=== PATIENT | male | born 1970 | race Caucasian/White ===

== ENCOUNTER 2017-01-07 17:14 | Inpatient (IN) | payer BC ==
[~2017-01-07] VITALS: Ht 167.6 cm; Wt 74.8 kg
[2017-01-07] MEDS ORDERED: LISI2.5T3 PO (17:25)
[2017-01-07] MEDS ORDERED: VITATAB73 PO (17:25)
[2017-01-07] MEDS ORDERED: CARV6.25 PO (17:25)
[2017-01-07] MEDS ORDERED: OMEP40CA2 PO (17:25)
[2017-01-07 19:48] LABS: BASO % 0.9 % (0.0-1.0); EOS # 0.1 K/mm3 (0.0-0.50); EOS % 2.6 % (0.0-3.0); LARGE UNSTAINED CELL # 0.1 K/mm3 (0.0-0.4); LARGE UNSTAINED CELL % 1.8 % (0.0-4.0); LYMPH # 1.4 K/mm3 (1.5-4.5); LYMPH % 32.5 % (24.0-44.0); MEAN CORPUSCULAR HEMOGLOBIN 33.1 pg (27.0-33.0); MEAN CORPUSCULAR HGB CONC 32.8 g/dl (32.0-36.5); MEAN CORPUSCULAR VOLUME 101.1 fl (80.0-96.0); MONO # 0.3 K/mm3 (0.0-0.8); MONO % 5.8 % (0.0-5.0); NEUTROPHILS # 2.5 K/mm3 (1.8-7.7); NEUTROPHILS % 56.4 % (36.0-66.0); PLATELET COUNT, AUTOMATED 273 k/mm3 (150-450); RED CELL DISTRIBUTION WIDTH 13.2 % (11.5-14.5); WHITE BLOOD COUNT 4.4 K/mm3 (4.0-10.0)
[2017-01-07] MEDS ORDERED: NS 1,000 ML IV ONE (20:00)
[2017-01-07 20:16] LABS: ANION GAP 7 MEQ/L (8-16); BLOOD UREA NITROGEN 65 MG/DL (7-18); CALCIUM LEVEL 8.1 MG/DL (8.5-10.1); CARBON DIOXIDE LEVEL 21 MEQ/L (21-32); CHLORIDE LEVEL 114 MEQ/L (98-107); GLOMERULAR FILTRATION RATE 8.1 (>60); GLUCOSE, FASTING 87 MG/DL (70-105); SODIUM LEVEL 142 MEQ/L (136-145)
[2017-01-07 20:26] LABS: POTASSIUM SERUM 5.6 MEQ/L (3.5-5.1)
[2017-01-07 21:49] LABS: ALBUMIN 3.1 GM/DL (3.2-5.2); ALBUMIN/GLOBULIN RATIO 0.91 (1.00-1.93); ALKALINE PHOSPHATASE 63 U/L (45-117); ALT/SGPT 21 U/L (12-78); AST/SGOT 9 U/L (15-37); BILIRUBIN,DIRECT < 0.1 MG/DL (0.0-0.2); BILIRUBIN,TOTAL 0.2 MG/DL (0.2-1.0); COMPLEMENT C3 99.5 MG/DL (90-180); TOTAL PROTEIN 6.5 GM/DL (6.4-8.2)
[2017-01-07 22:13] LABS: INR 1.04
--- NOTE | 2017-01-07 22:40 | REPUSA ---
CT of the abdomen and pelvis without contrast Clinical statement: Pain. Technique: Multiple axial CT images were obtained from the base of the lungs to the floor of the pelv is utilizing 5 mm axial slices without administration of contrast. Coronal and sagittal reconstructio ns were also obtained. No comparison is available. Findings: Chest: The visualized lung bases are clear. Abdomen: The kidneys are normal in size bilaterally. There is no evidence of hydronephrosis or nephro lithiasis. The liver, spleen, pancreas, gallbladder and adrenal glands are unremarkable. The aorta de monstrates normal caliber and contour. There is no abdominal lymphadenopathy or ascites. Pelvis: There is a small focus of bowel wall thickening and pericolonic inflammation in the midporti on of the sigmoid colon, consistent with focal acute sigmoid diverticulitis. There is no evidence of abscess or perforation. The remainder of the bowel is unremarkable, with no obstructive or inflammato ry changes. The urinary bladder is within normal limits. There is no pelvic lymphadenopathy or ascite s. The other pelvic structures appear unremarkable. Bones: There are no suspicious osseous abnormalities seen. Impression: 1. Small focus of sigmoid diverticulitis in the midportion of the sigmoid colon. No evidence of absc ess, perforation, or bowel obstruction. 2. No evidence of hydronephrosis or nephrolithiasis.
[2017-01-08] VITALS (13 sets, daily range): BP systolic 122–140; BP diastolic 70–94
[2017-01-08] MEDS: HEPARIN SOD (PORCINE) 5000 UNITS/ML VIAL SC SCH ×3 (06:43→21:08)
[2017-01-08] MEDS: PANTOPRAZOLE 40MG TAB (PROTONIX) PO SCH (09:30)
--- NOTE | 2017-01-08 12:02 | HPE ---
DATE OF ADMISSION: 01/07/2017 PRIMARY CARE PROVIDER: Dr. Amato in [place]. CHIEF COMPLAINT: Patient sent by primary care provider for abnormal labs. PAST MEDICAL HISTORY: 1. Heart murmur which was repaired at the age of 40 years, which he believes was ventricular septal defect (VSD). 2. Migraines. HISTORY OF PRESENT ILLNESS: This is a 46-year-old man who last saw a physician in 2013, when he was fine, did not have any abnormalities. He then had a blood work test in February 2016 for insurance purposes and his insurance was declined and he was not given any reason. Over the past 6 months, patient has been feeling progressively sick, more fatigued, difficulty in sleeping, poor appetite, tendency to fall asleep and dozing off during the day, but when he is trying to sleep he cannot sleep. He went to follow with his primary care provider last week. Blood work was done and he was found to have acute renal failure. Patient was told to come to the emergency room, however patient refused at that time so he was referred to Dr. Barajas for evaluation but Dr. Barajas wanted the patient to come to the emergency room for a full evaluation so the patient came here for abnormal labs. Patient says last week after he found out about the kidney failure he went back and checked his lab work from February 2016, which showed that he had a creatinine of 3, however he was not told anything about that. At present, he denies any chest pain. Does have intermittent wheeziness and gets exertional dyspnea. Denies any fever or chills. Denies any abdominal pain, nausea, vomiting, or diarrhea. Patient's last antibiotic was more than a year ago for a dental procedure. Denies use of any IV contrast recently. Patient does say that he would take some nonsteroidal anti-inflammatory drugs (NSAIDs) off and on for headaches and pains. At present, patient is being admitted to the hospitalist service for acute kidney injury on chronic kidney disease. PAST SURGICAL HISTORY: 1. Cardiac catheterization times two. 2. VSD repair at the age of 4 years. ALLERGIES: No known allergies. HOME MEDICATIONS: - Coreg 6.25 mg by mouth twice a day - lisinopril 2.5 mg by mouth daily - omeprazole 40 mg twice a day - vitamin B complex one tablet by mouth daily (These were all started about 5 days ago when he went to see his primary care last week.) SOCIAL HISTORY: Patient does not smoke, does not use recreational drugs, does not abuse alcohol. FAMILY HISTORY: Nothing significant. REVIEW OF SYSTEMS: All ten point review of systems were negative except as mentioned in history of present illness (HPI). PHYSICAL EXAMINATION: VITAL SIGNS: Temperature 97.6, pulse 79, respiratory rate 16, blood pressure 121/85, pulse oximetry 100% in room air. GENERAL: Patient awake, alert, oriented times three, lying down in bed, in no acute distress. HEENT: Normocephalic, atraumatic. Moist mucous membranes. Anicteric eyes. CHEST: Clear to auscultation. CARDIOVASCULAR: S1, S2, regular. No rub, murmur, or gallop. ABDOMEN: Soft, nontender. Bowel sounds present. EXTREMITIES: No edema. NEUROLOGIC: There is no flap. LABORATORY DATA: WBC 4.4, hemoglobin 11.2, platelets 273. Sodium 142, potassium 5.6, chloride 114, bicarbonate 21, BUN 65, creatinine 7.7, calcium 8.1, glucose 87. Liver function tests normal. C3 is 99.5, C4 is 26. ASSESSMENT: This is a 46-year-old male admitted for acute kidney injury on chronic kidney disease, cause to be determined. PLAN: 1. For acute kidney injury on chronic kidney disease, patient's last known creatinine in February 2016 was 3. Will need to rule out obstruction. Will get CT abdomen and pelvis. Will also need to evaluate for glomerular diseases and interstitial nephritis. Will send urine for eosinophils. Will order serological studies. Patient may need renal biopsy to determine the etiology of renal failure. At present patient is mildly hyperkalemic, so will put the patient on potassium restricted diet, but there is no signs of fluid overload, no signs of uremia, no uremic rub, flap, or intractable acidosis. Patient does not need urgent dialysis at this point. 2. History of ventricular septal defect (VSD) and repair. Will get echocardiogram. 3. Possible hypertension. At present, patient's blood pressure is in normal range. Will stop lisinopril and Coreg. 4. Deep venous thrombosis (DVT) prophylaxis has been ordered.
[2017-01-08 12:05] LABS: ALBUMIN 3.2 GM/DL (3.2-5.2); CALCIUM LEVEL 8.5 MG/DL (8.5-10.1); CREATININE FOR GFR 7.57 MG/DL (0.70-1.30); GLOMERULAR FILTRATION RATE 8.3 (>60); PHOSPHORUS LEVEL 4.6 MG/DL (2.5-4.9)
[2017-01-08 12:06] LABS: POTASSIUM SERUM 5.2 MEQ/L (3.5-5.1)
[2017-01-08 13:55] LABS: BASO % 0.8 % (0.0-1.0); EOS # 0.1 K/mm3 (0.0-0.50); EOS % 2.6 % (0.0-3.0); LARGE UNSTAINED CELL # 0.1 K/mm3 (0.0-0.4); LARGE UNSTAINED CELL % 2.7 % (0.0-4.0); LYMPH # 1.2 K/mm3 (1.5-4.5); LYMPH % 29.2 % (24.0-44.0); MEAN CORPUSCULAR HEMOGLOBIN 32.6 pg (27.0-33.0); MEAN CORPUSCULAR HGB CONC 32.4 g/dl (32.0-36.5); MEAN CORPUSCULAR VOLUME 100.7 fl (80.0-96.0); MONO # 0.3 K/mm3 (0.0-0.8); MONO % 6.6 % (0.0-5.0); NEUTROPHILS # 2.4 K/mm3 (1.8-7.7); NEUTROPHILS % 58.1 % (36.0-66.0); PLATELET COUNT, AUTOMATED 274 k/mm3 (150-450); RED CELL DISTRIBUTION WIDTH 13.3 % (11.5-14.5); WHITE BLOOD COUNT 4.1 K/mm3 (4.0-10.0)
[2017-01-08 14:10] LABS: ALBUMIN 3.1 GM/DL (3.2-5.2); CALCIUM LEVEL 8.4 MG/DL (8.5-10.1); CREATININE FOR GFR 7.44 MG/DL (0.70-1.30); GLOMERULAR FILTRATION RATE 8.4 (>60); PHOSPHORUS LEVEL 4.2 MG/DL (2.5-4.9)
[2017-01-08] MEDS ORDERED: LIDOCAINE 2% MDV 20 ML VIAL As Ordered ONE (14:45)
[2017-01-08] MEDS ORDERED: LIDOCAINE W/EPINEPHRINE 1% 20ML VIAL As Ordered ONE (14:49)
--- NOTE | 2017-01-08 15:56 | REPKIM ---
CLINICAL HISTORY: Acute renal failure and worsening creatinine. The referring nephrology service has asked a diagnostic kidney biopsy. PROCEDURE PERFORMED: Core Biopsy Kidney INTERVENTIONALIST: Trina Lundberg MD CONSENT: The risks, benefits and alternatives to the procedure were explained to the patient and informed written consent was obtained from the patient. MEDICATIONS: Local Lidocaine EBL: 10 mL COMPLICATIONS: None immediate PROCEDURE/FINDINGS: The patient was placed in the prone position on the CT table. Time out procedure was performed. The left flank was prepped and draped in the usual sterile fashion. Using CT guidance, a 17-gauge introducer needle was advanced to the targeted lower pole of the kidney, after infiltration of the skin and deep tissues with local anesthetic. Then using coaxial technique, five passes were made using an 18-gauge biopsy device. The core specimens sent to pathology. The introducer needle was then removed after additional local lidocaine with epi at the biopsy sites and along its tract. Immediate post biopsy CT showed very small hemorrhage/air at the biopsy sites. Direct manual pressure was applied over the skin entrance site. A sterile dressing was applied. This procedure was performed using CT. The patient tolerated the procedure well and transferred to the recovery room in stable condition. Dr. Lundberg was present. IMPRESSION: Successful core biopsy of the left kidney as described above. Plan: Clinical observation. cc: MD Deyvi Colon MD MTDD
[2017-01-08] MEDS ORDERED: NORCO, ANEXSIA 5/325MG TABLET (HYDROcodone/ACETAMINOPHEN) PO PRN (16:45)
--- NOTE | 2017-01-08 17:32 | IPNPDOC ---
Subjective Date Seen The patient was seen on 01/08/17. Subjective Chief Complaint/HPI The patient is a 46-year-old male admitted with a reason for visit of Mal Superimposed On Ckd. Events since last encounter Feeling fine- doesn't want to be in hospital - would like to do as much workup as possible as an outpt- no pain,tolerating diet Constitutional: Denies: Chills, Fever Pulmonary: Denies: Dyspnea, Cough Cardiovascular: Reports: Orthopnea, Other Symptoms (LOW), Denies: Chest Pain, Palpitations Gastrointestinal: Denies: Nausea, Vomiting, Abdominal Pain Objective Physical Examination General Exam: Positive: Alert, Cooperative, No Acute Distress ENT Exam: Positive: Mucous membr. moist/pink Neck Exam: Positive: Supple Chest Exam: Positive: Clear to auscultation, Diminished, Negative: Wheezing Heart Exam: Positive: Rate Normal, Regular Rhythm, Murmurs Abdomen Exam: Positive: Normal bowel sounds, Soft, Negative: Tenderness Extremity Exam: Positive: Edema (trace) Assessment /Plan Problems (1) Acute kidney injury superimposed on CKD Status: Acute Problem Specific Plan: Consult Specialist Problem Text: Dr. Barajas consulted- pt with ckd and arf- an element of hyperkalemia Search for underlying cause begun- probably will need biopsy (2) VSD (ventricular septal defect) Status: Chronic Response to Treatment: Stable (3) Anemia in CKD (chronic kidney disease) Status: Acute Problem Specific Plan: Monitor Clinically, Repeat Labs Problem Text: suspect acute on chronic- check labs Plan/VTE VTE Prophylaxis Ordered?: Yes VS, I&O, 24H, Fishbone Vital Signs/I&O Vital Signs Date Time Temp Pulse Resp B/P (MAP) Pulse Ox O2 Delivery O2 Flow Rate FiO2 01/08/17 17:10 97.8 89 18 133/88 (103) 100 Room Air I&O- Last 24 Hours up to 6 AM 01/08/17 06:00 Intake Total 720 ml Output Total 425 ml Balance 295 ml Laboratory Data 24H LABS Laboratory Tests 2 01/07/17 19:42: White Blood Count 4.4, Red Blood Count 3.39L, Hemoglobin 11.2L, Hematocrit 34.3L , Mean Corpuscular Volume 101.1H, Mean Corpuscular Hemoglobin 33.1H, Mean Corpuscular Hemoglobin Concent 32.8, Red Cell Distribution Width 13.2, Platelet Count 273, Neutrophils (%) (Auto) 56.4, Lymphocytes (%) (Auto) 32.5, Monocytes ( %) (Auto) 5.8H, Eosinophils (%) (Auto) 2.6, Basophils (%) (Auto) 0.9, Neutrophils # (Auto) 2.5, Lymphocytes # (Auto) 1.4L, Monocytes # (Auto) 0.3, Eosinophils # (Auto) 0.1, Basophils # (Auto) 0.0, Large Unclassified Cells % 1.8 , Large Unclassified Cells # 0.1, Prothrombin Time 13.7, Prothromb Time International Ratio 1.04, Anion Gap 7L, Glomerular Filtration Rate 8.1L, Blood Urea Nitrogen 65H, Creatinine 7.70H, Sodium Level 142, Potassium Level 5.6H, Chloride Level 114H, Carbon Dioxide Level 21, Calcium Level 8.1L, Aspartate Amino Transf (AST/SGOT) 9L, Alanine Aminotransferase (ALT/SGPT) 21, Alkaline Phosphatase 63, Total Bilirubin 0.2, Direct Bilirubin < 0.1, Total Protein 6.5, Albumin 3.1L, Albumin/Globulin Ratio 0.91L, Immunotype (Immunosubtraction) SEE COMMENT, Serum Cryoglobulins NEGATIVE, Complement C3 99.5, Complement C4 26.0 01/08/17 05:50: Urine Appearance CLEAR, Urine Color STRAW, Urine pH 5.0, Urine Specific [place] 1.008, Urine Protein 2+H, Urine Glucose (UA) 1+H, Urine Ketones NEGATIVE, Urine Urobilinogen 0.2, Urine Bilirubin NEGATIVE, Urine Leukocyte Esterase NEGATIVE, Urine Blood NEGATIVE, Urine Nitrite NEGATIVE, Urine WBC (Auto) 1, Urine RBC ( Auto) 1, Urine Hyaline Casts (Auto) 0, Urine Bacteria (Auto) 1+H, Urine Squamous Epithelial Cells 0, Urine Sperm (Auto) 01/08/17 06:32: 01/08/17 10:00: Anion Gap 9, Glomerular Filtration Rate 8.3L, Blood Urea Nitrogen 58H, Creatinine 7.57H, Sodium Level 145, Potassium Level 5.2H, Chloride Level 116H, Carbon Dioxide Level 20L, Calcium Level 8.5, Albumin 3.2, Phosphorus Level 4.6, Parathyroid Hormone (Intact) 107.0H 01/08/17 13:20: White Blood Count 4.1, Red Blood Count 3.64L, Hemoglobin 11.9L, Hematocrit 36.7L , Mean Corpuscular Volume 100.7H, Mean Corpuscular Hemoglobin 32.6, Mean Corpuscular Hemoglobin Concent 32.4, Red Cell Distribution Width 13.3, Platelet Count 274, Neutrophils (%) (Auto) 58.1, Lymphocytes (%) (Auto) 29.2, Monocytes ( %) (Auto) 6.6H, Eosinophils (%) (Auto) 2.6, Basophils (%) (Auto) 0.8, Neutrophils # (Auto) 2.4, Lymphocytes # (Auto) 1.2L, Monocytes # (Auto) 0.3, Eosinophils # (Auto) 0.1, Basophils # (Auto) 0.0, Large Unclassified Cells % 2.7 , Large Unclassified Cells # 0.1, Blood Urea Nitrogen 59H, Creatinine 7.44H, Sodium Level 143, Potassium Level 5.0, Chloride Level 116H, Carbon Dioxide Level 20L, Anion Gap 7L, Glomerular Filtration Rate 8.4L, Calcium Level 8.4L, Phosphorus Level 4.2, Albumin 3.1L CBC/BMP Laboratory Tests 01/07/17 19:42 Red Blood Count 3.39 L, Mean Corpuscular Volume 101.1 H, Mean Corpuscular Hemoglobin 33.1 H, Mean Corpuscular Hemoglobin Concent 32.8, Red Cell Distribution Width 13.2, Neutrophils (%) (Auto) 56.4, Lymphocytes (%) (Auto) 32.5, Monocytes (%) (Auto) 5.8 H, Eosinophils (%) (Auto) 2.6, Basophils (%) ( Auto) 0.9, Neutrophils # (Auto) 2.5, Lymphocytes # (Auto) 1.4 L, Monocytes # ( Auto) 0.3, Eosinophils # (Auto) 0.1, Basophils # (Auto) 0.0, Calcium Level 8.1 L 01/08/17 10:00 Anion Gap 9 01/08/17 13:20 Red Blood Count 3.64 L, Mean Corpuscular Volume 100.7 H, Mean Corpuscular Hemoglobin 32.6, Mean Corpuscular Hemoglobin Concent 32.4, Red Cell Distribution Width 13.3, Neutrophils (%) (Auto) 58.1, Lymphocytes (%) (Auto) 29.2, Monocytes (%) (Auto) 6.6 H, Eosinophils (%) (Auto) 2.6, Basophils (%) ( Auto) 0.8, Neutrophils # (Auto) 2.4, Lymphocytes # (Auto) 1.2 L, Monocytes # ( Auto) 0.3, Eosinophils # (Auto) 0.1, Basophils # (Auto) 0.0, Anion Gap 7 L Microbiology Microbiology 01/08/17 Blood Culture, Received Pending 01/08/17 Blood Culture, Received Pending CONNER [place] MD January 08, 2017 17:32
--- NOTE | 2017-01-08 22:28 | CR ---
DATE OF CONSULTATION: 01/08/2017 CONSULTATION FOR: Dr. Ibanez REASON FOR CONSULTATION: Acute renal failure superimposed on chronic kidney disease. HISTORY OF PRESENT ILLNESS: Mr. Bassett is a 46-year-old gentleman with known history of possible ventricular septal defect, which was repaired when he was 4 years old. 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 He tried to re-establish with his primary care physician, Dr. Amato in [place], as he was not feeling well for last few months. The patient reports that he had generalized weakness, excessive sleepiness, and tiredness, due to which he wanted to restart his medications. His labs were repeated by Dr. Amato, and creatinine was found to be 6.9, due to which a stat consult was requested from our office, and they were advised to send the patient to the emergency room. He was admitted to [facility] last evening. I have now reviewed some prior old records from Dr. Amato's office, which show a serum creatinine of 2.0 back in 2013, and his significant other also had some labs in her cell phone, which showed a serum creatinine of 2.9 in March last year, when he did have lab work for life insurance. PAST MEDICAL HISTORY: Significant for: 1. History of ventricular septal defect repair at age 4. 2. History of cardiac catheterization times two. 3. Hypertension. 4. Gastroesophageal reflux disease. MEDICATIONS: His home medications included: - Coreg 6.25 mg twice a day - lisinopril 2.5 mg daily - omeprazole 40 mg twice a day - multivitamin one tablet daily PERSONAL AND SOCIAL HISTORY: The patient denies any recreational drug use or smoking. He does drink alcohol, at least four to five drinks every day. FAMILY HISTORY: Negative for end-stage renal disease or coronary artery disease. REVIEW OF SYSTEMS: GENERAL: He has been feeling weak and tired. He denies any fever or chills. HEAD AND NECK: Unremarkable. EARS, NOSE, AND THROAT: Also unremarkable. CARDIOVASCULAR SYSTEM: Significant for cardiomyopathy with ejection fraction reported to be 25% per the patient. He denies any chest pain, leg edema, orthopnea, or paroxysmal nocturnal dyspnea (PND). RESPIRATORY SYSTEM: Negative for cough or hemoptysis. GASTROINTESTINAL SYSTEM: Negative for nausea, vomiting, or diarrhea. GENITOURINARY SYSTEM: Negative for dysuria, hematuria, or kidney stones. MUSCULOSKELETAL SYSTEM: Negative for any significant arthritis or leg edema. He denies using any nonsteroidal anti-inflammatory drugs (NSAIDs). ENDOCRINE SYSTEM: Negative for diabetes or thyroid problems. HEMATOLOGICAL SYSTEM: Negative for anticoagulation, easy bruising, or excessive bleeding. PSYCHOSOCIAL SYSTEM: Negative for depression or anxiety. SKIN: Negative for rash or ulcers. NEUROLOGICAL SYSTEM: Negative for seizures or stroke. PHYSICAL EXAMINATION: The patient is awake and alert at the time of my visit. Temperature 98 degrees Fahrenheit, heart rate 80 per minute, respiratory rate 18 per minute, blood pressure 133/90 mm of mercury, and oxygen saturation 100% on room air. Head is atraumatic. Pupils are equal and reactive to light, and sclerae are anicteric. Ears, nose, and throat are unremarkable. Neck is supple and without jugular venous distention (JVD) or thyroid enlargement. Heart exam reveals regular S1 and S2 without a pericardial friction rub. He has systolic murmur, grade 2/6, at left sternal border and apex. Lungs are clear to auscultation bilaterally. Abdomen is soft and nontender and without a palpable organomegaly. Bowel sounds are normal. Extremities have no cyanosis or clubbing. Skin has no rash or ulcers. Neurologically, he is awake, alert, and oriented times three. LABORATORY DATA: WBC count 4.1, hemoglobin 11.2, hematocrit 34.3, platelets 273. His chemistry on admission showed a sodium level 142, potassium 5.6, CO2 of 21, BUN 65, and creatinine 7.7. Calcium level 8.1, AST 9, ALT 21, total protein 6.5, and albumin 3.1. Urinalysis showed 2+ protein, 1+ glucose, and no blood. He had only 1 WBC and 1 RBC. Complements showed a C3 level of 99.5 and a C4 level 26.0. DEVORAH, anti-DNA, ANCA, and free light chains are still pending. The patient had CT scan of abdomen and pelvis, which did not show any hydronephrosis or kidney stones. PROBLEMS: 1. Acute renal failure superimposed on chronic kidney disease. The patient had significant chronic kidney disease with progressive course. In 2013, his serum creatinine was 2.0, and in March 2016 it was 2.9. Apparently he did not have any regular medical care, and we do not know if any lab work was done in between. In any event, he does not seem to have acute glomerulonephritis in view of lack of hematuria. He does have proteinuria, which is probably related to glomerular sclerosis. Dr. Beckman has already ordered serology to rule out any possibility of vasculitis. His kidney size appears relatively preserved on the CT scan. We will go ahead and schedule him for a diagnostic kidney biopsy to rule out any possibility of glomerulonephritis definitively, as the patient will need to be committed to long-term dialysis. I discussed with the patient and his significant other about all his options at length and answered all their questions. 2. Cardiomyopathy. The patient is known to have an ejection fraction of 25%; however, I do not have access to his prior echocardiogram. We will get another echocardiogram now, as we also want to rule out any possibility of cardiac vegetations to rule out shunt nephritis. We will also get blood cultures times two sets to rule out any possibility of bacteremia. 3. Cardiac murmur with history of ventricular septal defect (VSD). The patient reports repair of his VSD at age 4. I do not have any details available at present. We will get his records from cardiology and also get another echocardiogram now. 4. Hypertension. At present, I would strongly recommend to keep him off angiotensin-converting enzyme (BROCK) inhibitor; however, low-dose beta cherrie can be used if indicated. 5. Hyperkalemia. He has mild hyperkalemia, most likely related to advanced kidney disease and dietary indiscretion. We will recheck his electrolytes and consider treating him with Kayexalate if needed. I thank you for involving me in the care of Mr. Bassett. I will follow him along with you.
[2017-01-09] MEDS: HEPARIN SOD (PORCINE) 5000 UNITS/ML VIAL SC SCH ×2 (05:21→14:00)
[2017-01-09 05:57] LABS: MEAN CORPUSCULAR HEMOGLOBIN 32.5 pg (27.0-33.0); MEAN CORPUSCULAR HGB CONC 32.7 g/dl (32.0-36.5); MEAN CORPUSCULAR VOLUME 99.2 fl (80.0-96.0); RED CELL DISTRIBUTION WIDTH 13.4 % (11.5-14.5); WHITE BLOOD COUNT 4.6 K/mm3 (4.0-10.0)
[2017-01-09 06:00] VITALS: BP 121/71
[2017-01-09 06:21] LABS: ALBUMIN 2.8 GM/DL (3.2-5.2); CALCIUM LEVEL 7.9 MG/DL (8.5-10.1); CREATININE FOR GFR 7.91 MG/DL (0.70-1.30); GLOMERULAR FILTRATION RATE 7.9 (>60); PHOSPHORUS LEVEL 5.3 MG/DL (2.5-4.9); POTASSIUM SERUM 4.8 MEQ/L (3.5-5.1)
[2017-01-09] MEDS: PANTOPRAZOLE 40MG TAB (PROTONIX) PO SCH (08:32)
[2017-01-09 12:47] LABS: HEPATITIS B SURFACE ANTIBODY NEGATIVE (POSITIVE)
[2017-01-09] MEDS ORDERED: HEPARIN 1,000 UNITS/ML 10ML VIAL (FOR RADIOLOGY& DIALYSIS ONLY) As Ordered ONE (14:47)
[2017-01-09] MEDS ORDERED: LIDOCAINE W/EPINEPHRINE 1% 20ML VIAL As Ordered ONE (14:47)
[2017-01-09] MEDS ORDERED: fentaNYL 100 MCG/2 ML INJECTION (J3010) As Ordered ONE (15:17)
--- NOTE | 2017-01-09 15:55 | REP ---
CHEST, TWO VIEWS: Two views of the chest are performed. There is cardiomegaly. There is no acute infiltrate. Mediastinal silhouette is unremarkable. Visualized osseous structures are intact. IMPRESSION: Cardiomegaly. No acute infiltrate. Signed by Jose L Brody MD 01/09/2017 04:59 P
--- NOTE | 2017-01-09 18:42 | REPKIM ---
CLINICAL HISTORY: Renal failure. The referring nephrology service has requested a tunneled dialysis catheter placement for hemodialysis. PROCEDURE PERFORMED: Right IJ Tunneled Hemodialysis Catheter Placement INTERVENTIONALIST: Trina Lundberg MD CONSENT: The risks, benefits and alternatives to the procedure were explained to the patient and informed written consent was obtained. MEDICATIONS: Local Lidocaine and Fentanyl 50 mcg IV. Independent trained observer was present during the entire duration of the procedure for monitoring. EBL: 5 mL DEVICE USED: 14.5-[place] 19-cm tip to cuff EvenMore Catheter Lot#[id number] FLUORO TIME: 0.3 minutes PROCEDURE/FINDINGS: The patient was brought to the interventional radiology suite where a timeout procedure was performed. The patient was placed in the supine position. The right neck and upper chest were prepped and draped in the usual sterile fashion. Real time ultrasound was used and permanent image stored. Using ultrasound guidance the internal jugular vein was punctured with a micropunture needle, after infiltration of the skin and deep tissues with local anesthetic. A 19-cm tip to cuff length, 14.5-[place] dual lumen EvenMore hemodialysis catheter was inserted. The catheter was placed through a subcutaneous tunnel requiring a second incision. The incision at the base of the neck was closed with 4-0 Vicryl suture and covered with steristrips. The catheter was secured at the skin exit site with 2-0 Prolene suture. The ports of the catheter were locked with heparin (1000 units/mL). A sterile dressing was then applied. Post procedure chest fluoroscopy showed the tip of the catheter at the proximal right atrium. The patient tolerated the procedure well with no immediate complications. This procedure was performed using ultrasound and fluoroscopy. Dr. Lundberg was present. IMPRESSION: 1. Ultrasound of the neck demonstrates patent right IJ vein and compressible. 2. Successful right IJ tunneled hemodialysis catheter placement as discussed above. There is free aspiration of blood from all ports of the catheter. The catheter is ready for immediate use. cc: MD Deyvi Colon MD MTDD
--- NOTE | 2017-01-10 11:10 | IPN ---
DATE: 01/09/2017 Mr. Bassett was admitted with acute renal failure superimposed on chronic kidney disease. Yesterday, he underwent diagnostic kidney biopsy. He is feeling well and denies any hematuria or flank pain. He has no nausea or vomiting. He denies any dyspnea or chest pain. He has chronic fatigue, which is most likely related to advanced renal failure. I have seen him again this morning and have already reviewed his prior records including labs, echocardiogram and lab work from today. Apparently, he had a serum creatinine of 2.0 in 2013 and 2.9 in March 2016. Now his kidney function has worsened significantly with serum creatinine in the range of 7.7 to 7.9 mg/dl. He also has (dictation cut off) with hemoglobin of 10.6 gm/dl. Patient wishes to go home and he has several questions today. On physical exam, temperature 97.6 degrees Fahrenheit, heart rate 72 per minute and respiratory rate 18 per minute. Blood pressure 120/70 mmHg and oxygen saturation 99% on room air. His head is atraumatic. Ears, nose and throat are unremarkable. Pupils equal and reactive to light and sclera is anicteric. Heart sounds are regular and there is no pericardial friction rub. Lungs clear to auscultation bilaterally. Abdomen soft and nontender and there is no palpable organomegaly. Extremities have no cyanosis or clubbing. Skin has no rash or ulcers. Neurologically he is awake, alert and oriented times three. There is no tremor or asterixis. Today's labs show a WBC count 4.6, hemoglobin 10.6 and hematocrit 32.5. Platelets 243. Sodium 144 and potassium 4.8. CO2 18, BUN 60 and creatinine 7.91. Calcium 7.9 and phosphorus 5.3. Albumin 2.8. PROBLEMS: 1. Acute renal failure superimposed on chronic kidney disease. After review of previous records, I have felt that patient has mostly chronic kidney disease, which has now progressed. He probably has some element of acute kidney injury. Etiology of his kidney failure is uncertain. He is likely to have possible IgA nephropathy or some kind of interstitial nephritis. I do not feel that he has glomerular disease. Kidney biopsy was done yesterday and results are pending. I have discussed with the patient at length about his situation and have recommended that patient start dialysis as soon as possible. He has severe reservations about dialysis. We discussed this issue at length and all his questions were answered. After about 30 minutes of discussion, patient did consent for catheter placement. However, he is not willing to start dialysis this week due to his work related issues. We had agreed for making plans for outpatient dialysis and discharging him after a Perma-Cath placement. He also will get labs repeated with a renal profile in next couple of days to ensure normal electrolytes. At this point, he has agreed to start dialysis on 01/17/2017 as an outpatient. He does not have any uremic symptoms at this point and his potassium level is normal. Patient will also be given instructions for renal diet before discharge. 2. Hyperkalemia. His potassium level has corrected and he understands to follow low potassium diet. 3. Metabolic acidosis. His metabolic acidosis is mild and at this point, we will continue to watch without any intervention. Patient is going to start dialysis next week. He understands to avoid high potassium foods and alcoholic drinks. 4. Anemia. His anemia is mild and at this point does not need any urgent intervention. DISPOSITION: The patient is going to be discharged later today. He will have a Perma-Cath placed prior to discharge. He will get a renal profile done on Saturday and the results will be faxed to my office. We will be in touch with him for starting dialysis next week. In the meantime, patient and family services is going to initiate paperwork for outpatient dialysis. We already have ordered hepatitis profile for him and chest x-ray in order to get him accepted to outpatient dialysis clinic. I spent 45 minutes [id number] with the patient and his significant other. I answered all their questions.
--- NOTE | 2017-01-10 12:47 | DSES ---
DATE OF ADMISSION: 01/07/2017 DATE OF DISCHARGE: 01/09/2017 Specialists involved in care included Dr. Barajas, Dr. Trina Lundberg. Procedures performed during the stay included renal biopsy and placement of dialysis catheter. No complications during the stay. DISCHARGE DIAGNOSES: 1. Chronic kidney disease, suspected stage V. 2. Cardiomyopathy with systolic congestive heart failure. 3. History of ventricular septal defect (VSD). 4. Hypertension. 5. Mild hyperkalemia. The following is a summary of his hospitalization: This is a 46-year-old with known renal dysfunction who had been without close outpatient followup, who presented with increasing malaise, fatigue, difficulty sleeping, poor appetite, was found to have abnormal labs. Dr. Barajas was called and he was sent to the emergency department for admission. He was admitted to the hospitalist service. Dr. Barajas was consulted. Workup was begun including labs and biopsy. A dialysis catheter was placed and the plan is to send him home today with the idea of starting outpatient dialysis on 01/17/2017. On the day of discharge, he is feeling well. He has been up, moving around, showered. No complaints of pain, chest pain, shortness of breath. He is anxious to get out of the hospital. Temperature 97.6, pulse 72, respiratory rate 17, blood pressure 121/71, 99% on room air. Awake, appropriately interactive, pleasantly conversant. Breathing is symmetrical and rested. He is speaking in complete sentences. No accessory muscle use. White cell count 4.6, hemoglobin 10.6, platelets 243. BUN 60, creatinine 7.9, potassium 4.8. Hepatitis B antigen negative. Hepatitis B antibody is negative. Hepatitis B core IgM is negative. Hepatitis C antibody is negative. DISCHARGE INSTRUCTIONS: Include the following: Following up with Dr. Barajas per his instructions, dialysis as scheduled. Diet is going to be renal. A nutrition consult was obtained to assist him in understanding this diet. There is no fluid restriction currently. Activity as tolerated. He is given an order for a renal profile to be done on 01/12/2017, with results to Dr. Barajas. Continue: - Coreg 6.25 mg by mouth twice daily - omeprazole 40 mg by mouth twice daily - vitamin B supplement daily Discontinue his lisinopril.
--- NOTE | 2017-01-10 19:36 | ECHO ---
DATE OF PROCEDURE: 01/08/2017 REFERRING PHYSICIAN: Dr. Ibanez and Dr. Beckman. INDICATION: Heart murmur. HEIGHT: 168 cm WEIGHT: 77 kg. DIMENSIONS: IVS: 1.3 LV: 5.1 LVPW: 1.3 LA: 4.0 Aorta: 3.8 FINDINGS: The study is of acceptable technical quality. Left ventricle is of normal size. Mild left ventricular hypertrophy (LVH) is noted. There is severe global hypokinesis with estimated left ventricle ejection fraction (LVEF) around 20%. Septum appears akinetic to dyskinetic. Provided history indicates that the patient underwent ventricular septal defect repair at the age of 4. Right ventricle is enlarged and at least mildly hypokinetic. Both atria are at least mildly enlarged. Aortic valve is tricuspid. It is mildly sclerotic but has normal mobility. Aortic root is borderline enlarged 3.8 cm. Aortic arch was poorly seen. Mitral valve appears normal. Tricuspid valve appears normal. Pulmonic valve was not well seen. No pericardial effusion is noted. Inferior vena cava is of normal size and appropriately collapses with respiration indicative of normal central venous pressure. Abdominal aorta appears normal. Doppler interrogation of aortic valve reveals no significant stenosis and mild insufficiency. There is trivial mitral insufficiency and approximately moderate tricuspid insufficiency. Calculated pulmonary artery pressure is in low to mid 50s corresponding to moderate or possibly moderately severe pulmonary hypertension. Pulmonic valve exhibits both stenosis and insufficiency. The systolic flow velocity is approximately 3 meters per second which would correspond to mild to moderate mitral stenosis. There is approximately moderate insufficiency of the valve. Evaluation of diastolic function reveals grade 2 diastolic dysfunction (E wave velocity was 121 cm/sec, E prime septal 5.3 cm/sec and E prime lateral 8.6 cm/sec). CONCLUSIONS: 1. Study is of acceptable technical quality. 2. Normal left ventricle (LV) size with mild LVH and severe LV systolic dysfunction. Akinetic to dyskinetic septum. Grade 2 diastolic dysfunction. 3. Approximately mild to moderate pulmonic stenosis and moderate pulmonic insufficiency. 4. Moderate tricuspid insufficiency. 5. Normal central venous pressure. 6. At least moderate pulmonary hypertension. COMMENTS: Subacute bacterial endocarditis (SBE) prophylaxis is not recommended. The patient indicates a history of ventricular septal defect repair at the age of 4. I have available report of echocardiogram from [facility] from 12/15/2013. At that point LVEF was estimated at 25-30%. Pulmonary artery pressure was reported as mildly elevated. Aortic and mitral valve appears that the same. There was no comment about pulmonic disease. MTDD
[2017-01-11 00:07] LABS: COMPLEMENT TOTAL (CH50) 56 U/mL (42-60); FREE KAPPA LIGHT CHAINS SERUM 118.09 mg/L (3.30-19.40); KAPPA/LAMBDA RATIO SERUM 1.08 (0.26-1.65)
== END 2017-01-09 17:00 | disposition home or self-care (01) | DRG 460 ==
LOC: M ED 19:50 → M ED INP 21:51 → M MSPAV 01-08 00:14
PROVIDERS: ADMIT Internal Medicine Nephrology; ATTEND Internal Medicine
PROC: 0TB13ZX Excision of Left Kidney, Percutaneous Approach, Diagnostic (ICD-10-PCS; principal; 2017-01-08)
PROC: 05HM33Z Insertion of Infusion Device into Right Internal Jugular Vein, Percutaneous Approach (ICD-10-PCS; 2017-01-09)
DX: N17.9 Acute kidney failure, unspecified (principal); E87.2 Acidosis; I42.9 Cardiomyopathy, unspecified; E87.5 Hyperkalemia; N18.9 Chronic kidney disease, unspecified; I10 Essential (primary) hypertension; D63.1 Anemia in chronic kidney disease; G43.909 Migraine, unspecified, not intractable, without status migrainosus; I12.9 Hypertensive chronic kidney disease with stage 1 through stage 4 chronic kidney disease, or unspecified chronic kidney disease; K21.9 Gastro-esophageal reflux disease without esophagitis

== ENCOUNTER 2017-04-18 09:54 | Day surgery (SDC) | payer OTHER ==
[~2017-04-18] VITALS: Ht 172.7 cm; Wt 77.1 kg
[~2017-04-18 09:54] MED LIST: ASPI81CH PO; CARV12.5 PO; CARV6.25 PO; COQ-100C2 PO; HAWT1CAP PO; LIDOCAINE 2% INJ 100 MG/5 ML SDV (FOR ANES.) As Ordered ONE; LISI2.5T3 PO; MIDAZOLAM INJ 2 MG/2 ML VIAL (J2250) As Ordered ONE; OMEP40CA2 PO; ONDANSETRON 4MG/2ML VIAL (J2405) As Ordered ONE; PROPOFOL 200 MG/20 ML VIAL As Ordered ONE; ROCURONIUM BROMIDE 50 MG/5 ML VIAL/SYRINGE As Ordered ONE; ROSU20TA PO; SELE100T6 PO; VITATAB73 PO; [UNRECOGNIZED DRUG - CODE] XX; fentaNYL 100 MCG/2 ML INJECTION (J3010) As Ordered ONE
[2017-04-18] MEDS ORDERED: NS 1,000 ML IV ONE (10:00)
[2017-04-18] MEDS ORDERED: NS 1,000 ML IV SCH (10:00)
[2017-04-18] MEDS ORDERED: CARVedilol 12.5 MG TAB PO ONE (11:00)
[2017-04-18] MEDS ORDERED: LIDOCAINE 1% SDV INJ 30 ML VIAL As Ordered ONE (11:09)
[2017-04-18] MEDS ORDERED: BUPIVACAINE HCL 0.5% 30 ML VIAL As Ordered ONE (11:10)
[2017-04-18 11:26] VITALS: BP 108/58
[2017-04-18] MEDS ORDERED: ceFAZolin 2 GM/D5W 50 ML IV BAG (J0690) As Ordered ONE (11:26)
[2017-04-18] MEDS ORDERED: PERCOCET 5MG/325MG TAB As Ordered ONE (12:53)
[2017-04-18] MEDS: PERCOCET 5MG/325MG TAB PO PRN ×2 (12:55→13:43)
--- NOTE | 2017-04-18 12:56 | ROOPDOC ---
[facility] Report Of Operation Report of Operation DATE OF PROCEDURE: 04/18/17 PREOPERATIVE DIAGNOSES: End-stage renal disease. POSTOPERATIVE DIAGNOSES: End-stage renal disease. PROCEDURE: Laparoscopic peritoneal dialysis catheter placement with suturing of the catheter to the anterior abdominal wall with a 2-0 Prolene suture. SURGEON: Dr. Aida Inman MD DOCUMENT RESTORER: None INDICATION: Patient is a 46-year-old male with end-stage renal disease who currently dialyzes through a right internal jugular vein PermCath. Patient wishes to undergo placement of a peritoneal dialysis catheter for his primary source of dialysis access. Risks, benefits and alternative treatment options were discussed with the patient. Benefits included but were not limited to dialysis through a catheter in the abdomen and no need for hemodialysis. Alternative treatment options included but were not limited to no intervention with continued dialysis through his right internal jugular vein PermCath. Risks included but were not limited to infection, bleeding, intra-abdominal organ injury necessitating exploratory laparotomy with repair, possible need for further open surgical intervention, inability to place the peritoneal dialysis catheter secondary to adhesions, failure of peritoneal dialysis catheter to function requiring revision, failure of peritoneal dialysis catheter to provide adequate dialysis requiring removal of catheter, cerebrovascular accident, myocardial infarction, pulmonary embolus, deep venous thrombosis, loss of limb, loss of life, and poor outcome. ANESTHESIA: Gen. endotracheal. IVF: 550 mL ESTIMATED BLOOD LOSS:Approximately 5 mL. HEPARIN: None PROTAMINE: None COMPLICATIONS: None DRAINS: None SPECIMENS: None IMPLANTS: 62 cm curl tail peritoneal dialysis catheter inserted into the peritoneal cavity. FINDINGS: Patient had a large amount of omentum and adipose tissue on the anterior abdominal wall in the midline and there was concern for occlusion of the catheter due to the large amount of omentum and fatty tissue and thus the catheter was sutured to the anterior abdominal wall in the right lower quadrant. DESCRIPTION OF PROCEDURE: Patient was taken to operating room, placed supine on the operating room table, , the patient was prepped and draped in a standard surgical fashion and a surgical time out was performed confirming the correct patient, laterality and procedure. A stab incision was made in the left upper quadrant after anesthetizing the overlying skin with 1% lidocaine mixed with 0.5 % Marcaine. A 5 mm port was then inserted through the stab incision into the peritoneal cavity with the laparoscope within the port using direct laparoscopic visualization to place the port within the perineal cavity. The abdominal cavity was insufflated with CO2. The tremor was inserted through the 5 mm port showing the intra-abdominal cavity to be free of adhesions or abnormalities. There was a large amount of adipose tissue and omentum. The 62 cm curl tail catheter was then brought through a puncture wound in the infraumbilical region after anesthetizing the overlying skin with 1% lidocaine mixed with 0.5% Marcaine. The catheter was directed into the pelvis under laparoscopic guidance. A second 5 mm port was placed in the right upper quadrant under direct laparoscopic visualization. There was a large amount of omentum and fatty tissue on the midline intra-abdominal wall and the decision was made to suture the catheter to the anterior abdominal wall in the right lower quadrant where there was minimal fatty tissue on the anterior abdominal wall. A small stab incision was made just above the symphysis pubis after anesthetizing overlying skin with 1% lidocaine mixed with 0.5% Marcaine. Then the endoclose device was used to pass a 2.0 Prolene suture into the abdominal cavity around the peritoneal dialysis catheter and back out through the stab incision. The 2-0 Prolene suture was tied to secure the catheter to the anterior abdominal wall. The abdomen was desufflated and 1 L of saline was instilled through the peritoneal dialysis catheter which returned easily on egress. The ports were removed and all puncture wounds were closed using 4-0 Monocryl suture in inverted interrupted fashion. Steri-Strips and dressings were applied. All instrument, sponge and needle counts were correct at the end of the case. There were no complications. Dr. Inman was present for and directed the entire case. Patient was transferred to the recovery room awake, alert, extubated and in stable condition. Robin Inman MD Apr 18, 2017 12:56
[2017-04-18] MEDS ORDERED: fentaNYL 100 MCG/2 ML INJECTION (J3010) IV PRN (13:00)
[2017-04-18] MEDS ORDERED: LR 1,000 ML IV SCH ×2 (13:00)
[2017-04-18 14:15] VITALS: BP 120/77
== END 2017-04-18 14:25 | disposition home or self-care (01) ==
LOC: M SDC 09:54
PROVIDERS: ATTEND Surgery Vascular Surgery
DX: N18.6 End stage renal disease (principal); Z99.2 Dependence on renal dialysis
CPT/HCPCS: 36415; 49324; 84132; J0690; J2250; J2405; J3010

== ENCOUNTER → 2017-06-13 | Outpatient (CLI) | payer OTHER ==
[~2017-06-13] MED LIST changes: -LIDOCAINE 2% INJ 100 MG/5 ML SDV (FOR ANES.) As Ordered ONE; +LIDOCAINE 2% MDV 20 ML VIAL As Ordered ONE; -MIDAZOLAM INJ 2 MG/2 ML VIAL (J2250) As Ordered ONE; -ONDANSETRON 4MG/2ML VIAL (J2405) As Ordered ONE; -PROPOFOL 200 MG/20 ML VIAL As Ordered ONE; -ROCURONIUM BROMIDE 50 MG/5 ML VIAL/SYRINGE As Ordered ONE; -fentaNYL 100 MCG/2 ML INJECTION (J3010) As Ordered ONE
--- NOTE | 2017-07-11 13:16 | REPIR ---
DATE OF PROCEDURE: 06/13/2017 PREOPERATIVE DIAGNOSIS: End stage renal disease, functioning peritoneal dialysis catheter. POSTOPERATIVE DIAGNOSIS: End stage renal disease, functioning peritoneal dialysis catheter. PROCEDURE: Right internal jugular vein PermaCath removal, right lower quadrant suture removal. ATTENDING SURGEON: Aaliyah Inman MD CHEF PASSENGER VESSEL: None. ANESTHESIA: Local with 20 mL of 2% lidocaine. INDICATION: Patient is a 46-year-old male with end stage renal disease who underwent placement of a peritoneal dialysis catheter, which is now functioning, but had a suture placed to position it in at the anterior abdominal wall with the suture causing a lot of discomfort. The patient also has a PermaCath which is no longer required and will undergo removal. COMPLICATIONS: None. DRAINS: None. SPECIMENS: None. IMPLANTS: None. PROCEDURE: Patient was placed supine, prepped and draped in a standard surgical fashion. Manual traction was applied to the internal jugular vein PermaCath, which did not remove the PermaCath spontaneously, after which the overlying tissue was anesthetized and then sharp dissection of the cuff was performed with removal of the PermaCath. Compression was applied and dressings were applied. The suture in the right lower quadrant was then removed after anesthetizing the overlying skin with 2% lidocaine. A small incision was made. The suture was identified, cut and removed and an inverted #4-0 Monocryl suture was placed to approximate the skin followed by Steri-Strips. Dressings were applied. The patient tolerated the procedure well. All instruments, sponge and needle counts were correct at the end of the case. There were no complications. Dr. Inman was present for and directed to the entire case. The patient was transferred to the holding area and subsequently discharged in stable condition.
== END | disposition home or self-care (01) ==
LOC: M IRPRO 09:07
PROVIDERS: ATTEND Surgery Vascular Surgery
DX: Z45.2 Encounter for adjustment and management of vascular access device (principal); N18.6 End stage renal disease

== ENCOUNTER 2020-02-13 10:54 | Inpatient (IN) | payer MEDICARE, MEDICAID ==
[~2020-02-13] VITALS: Ht 172.7 cm; Wt 88.3 kg
[~2020-02-13 10:54] MED LIST changes: -ASPI81CH PO; +ASPI81CH49 PO; -LIDOCAINE 2% MDV 20 ML VIAL As Ordered ONE; +LISI2.5T2 PO; -LISI2.5T3 PO; -OMEP40CA2 PO; +OMEP40CA97 PO; -ROSU20TA PO; +ROSU20TA5 PO
[2020-02-13] MEDS ORDERED: VELP5CHW PO (11:11)
[2020-02-13] MEDS ORDERED: REPA140I2 IM (11:11)
[2020-02-13] MEDS ORDERED: LOSA50TA88 PO (11:11)
[2020-02-13] MEDS ORDERED: ENTR1TAB (11:11)
[2020-02-13] MEDS ORDERED: METO50TA7 PO (11:11)
[2020-02-13 11:45] LABS: BASO % 0.4 % (0.0-1.0); EOS # 0.1 10^3/uL (0.0-0.5); EOS % 1.2 % (0.0-3.0); HEMATOCRIT 30.9 % (42.0-52.0); HEMOGLOBIN 9.9 g/dl (13.5-17.5); LYMPH # 1.2 10^3/uL (1.5-5.0); LYMPH % 11.2 % (24.0-44.0); MEAN CORPUSCULAR VOLUME 96.9 fl (80.0-96.0); MONO # 0.7 10^3/uL (0.0-0.8); MONO % 6.7 % (0.0-5.0); NEUTROPHILS # 8.8 10^3/uL (1.5-8.5); PLATELET COUNT, AUTOMATED 229 10^3/uL (150-450); RED BLOOD COUNT 3.19 10^6/uL (4.30-6.10)
[2020-02-13 12:19] LABS: ALBUMIN 2.4 GM/DL (3.2-5.2); ALT/SGPT 21 U/L (12-78); BILIRUBIN,DIRECT < 0.1 MG/DL (0.0-0.2); BILIRUBIN,TOTAL 0.3 MG/DL (0.2-1.0); LIPASE 176 U/L (73-393); TOTAL PROTEIN 6.1 GM/DL (6.4-8.2)
[2020-02-13] MEDS ORDERED: ISOVUE-370 76% 100ML VIAL As Ordered ONE (12:21)
--- NOTE | 2020-02-13 12:54 | REP ---
CT abdomen/pelvis: 02/13/2020. Indication: Abdominal pain. Recent peritonitis. Renal insufficiency. Technique: Axial CT images of the abdomen and pelvis were obtained with coronal and sagittal reconstructions provided. Comparison: 01/07/2017. Findings: Dual lead pacer / AICD is noted. Intraperitoneal catheter is present without associated focal fluid collection. Minimal mesenteric stranding is present consistent with inflammation. The kidneys are diminutive bilaterally. Aortoiliac atherosclerotic disease is present. There is no evidence of bowel obstruction. The liver is unremarkable. The visualized lungs are clear. Impression: No intraperitoneal fluid collection. Minimal inflammatory sequelae of the mesenteric. No bowel obstruction. Electronically Signed by Live Mcgill DO 02/13/2020 12:46 P
[2020-02-13] MEDS ORDERED: MEROPENEM INJ 1 GM in IV 1 EA IV ONE (15:00)
--- NOTE | 2020-02-13 15:13 | REP ---
Two-view chest: 02/13/2020. Indication: Epigastric pain. Comparison: 01/09/2017. Findings: The lungs are clear. There is no pleural effusion or pneumothorax. The cardiac silhouette is enlarged. Left-sided pacer / AICD is noted. Impression: Clear lungs. Electronically Signed by Live Mcgill DO 02/13/2020 03:04 P
--- NOTE | 2020-02-13 15:20 | HPEPDOC ---
[facility] Medical History & Physical Date of Admission Feb 13, 2020 Date of Service: Feb 13, 2020 Attending Physician: KING HURD MD History and Physical TIME OF SERVICE: 3:50 PM CHIEF COMPLAINT: Abdominal pain HISTORY OF PRESENT ILLNESS: This is a 49 year old gentleman who presented with complaints of abdominal pain. Initially the abdominal pain was diffuse, but now it's localized to the lower a bdomen. The pain is sharp in nature , constant, and ranges from 1 /10 up to 12/10 in severity and is associated with chills. He denies having associated fevers. He was started on vancomycin and gentamicin for peritonitis and finished his course of antibiotics on . He is on peritoneal dialysis and feels that the pain is worse during his PD sessions. REVIEW OF SYSTEMS: 12 point review of systems negative except as listed in HPI PAST MEDICAL/ SURGICAL HISTORY: ESRD was on HD for 6-9 months via permacath but has been on PD for about 1.5 years. Chronic systolic/diastolic CHF Pulmonary hypertension Chronic hypertension GERD VSD repair at 3 or 4 years of age SOCIAL HISTORY: He doesn't smoke FAMILY HISTORY: One of his cousins has CKD and received a kidney donor from a sibling ALLERGIES: Please see below. HOME MEDICATIONS: Please see below. PHYSICAL EXAMINATION: Vital Signs Date Time Temp Pulse Resp B/P (MAP) Pulse Ox O2 Delivery O2 Flow Rate FiO2 02/13/20 10:55 98.6 86 18 98/53 (68) 100 Room Air GEN: well-nourished / well developed/ NAD INTEGUMENT: not flushed/ not jaundice / he has old well-healed post sternotomy scar at his midchest extending down to the upper abdomen / the PD catheter site at the left mid abdomen does not have redness is not warm to touch and there is no discharge HEENT: NCAT / mucus membranes moist and pink CVS: RRR/NMRG/ no JVP / radial pulses intact / trace lower extremity edema LUNGS: able to speak full sentences without stopping to take a breath / lungs are clear to auscultation bilaterally on room air ABDOMEN: Contour (distended) / soft & slightly tender with palpation of the lower abdomen MSK/EXTREMITIES: range of motion intact in all 4 extremities NEURO: CN 2-12 are grossly intact / speech is not dysarthric PSYCH: alert and oriented to person place and time/ able to understand and follow all commands LABORATORY DATA: Immature Granulocyte % (Auto) 0.5, Neutrophils (%) (Auto) 80.0H, Lymphocytes (%) (Auto) 11.2L, Monocytes (%) (Auto) 6.7H, Eosinophils (%) (Auto) 1.2, Basophils (%) (Auto) 0.4, Neutrophils # (Auto) 8.8H, Lymphocytes # (Auto) 1.2L, Monocytes # (Auto) 0.7, Eosinophils # (Auto) 0.1, Basophils # (Auto) 0.0, Nucleated Red Blood Cells % (auto) 0.0, Lactic Acid Level 0.9, Total Bilirubin 0.3, Direct Bi lirubin < 0.1, Aspartate Amino Transf (AST/SGOT) 12, Alanine Aminotransferase (ALT/SGPT) 21, Alkaline Phosphatase 52, Total Protein 6.1L, Albumin 2.4L, Albumin/Globulin Ratio 0.6, Lipase 176 02/13/20 11:33: POC Glucose (Misc Panel) 103, POC Sodium (Misc Panel) 137, POC Potassium (Misc Panel) 4.1, POC Chloride (Misc Panel) 99, POC Total CO2 (Misc Panel) 27.0, POC Blood Urea Nitrogen (Misc Panel 67H, POC Ionized Calcium (Misc Panel) 4.6, POC Creatinine (Misc Panel) 10.8H, POC Hematocrit (Misc Panel) 31.0L 02/13/20 13:10: Urine Color YELLOW, Urine Appearance CLEAR, Urine pH 7.0, Urine Specific Kiester 1.012, Urine Protein 2+H, Urine Glucose (UA) NEGATIVE, Urine Ketones NEGATIVE, Urine Blood NEGATIVE, Urine Nitrite NEGATIVE, Urine Bilirubin NEGATIVE, Urine Urobilinogen 0.2, Urine Leukocyte Esterase NEGATIVE, Urine WBC (Auto) 2, Urine RBC (Auto) 1, Urine Hyaline Casts (Auto) 0, Urine Bacteria (Auto) 1+H, Urine Squamous Epithelial Cells 0, Urine Sperm (Auto) IMAGING: Chest x-ray " Impression: Clear lungs." CT abdomen and pelvis " Impression: No intraperitoneal fluid collection. Minimal inflammatory sequelae of the mesenteric. No bowel obstruction." MICROBIOLOGY: 02/13/20 Blood Culture, Received Pending 02/13/20 Blood Culture, Received Pending ASSESSMENT: Mr. Bassett is a 49-year-old with ESRD on PD, sys/dickinson CHF, pulm HTN, & chronic HTN who is admitted for management of abdominal pain, possibly due to peritonitis. PLAN: 1. Abdominal pain possibly due to peritonitis. UA, lipase, LFTs and CT of the abdomen and pelvis were unrevealing Time: Admit to medical floor/per Dr. Seay mermollynem, follow-up peritoneal fluid studies, repeat CT of the abdomen with contrast tomorrow 2. Macrocytic anemia His hemoglobin has dropped to 9.9 Plan: Follow-up iron studies, B12 & folate / sucroferric 3. ESRD with secondary hyperparathyroidism - PD, calcitriol, calcium acetate, ergocalciferol 4. Chronic Sys/dickinson CHF / chronic HTN - metoprolol, losartan 5. GERD - PPI DVT PROPHYLAXIS: Heparin DISPOSITION: Likely home after more than 2 midnight stay Home Medications Scheduled Calcitriol (Calcitriol) 0.25 Mcg Capsule, 0.25 MCG PO DAILY Calcium Acetate (Calcium Acetate) 667 Mg Capsule, 667 MG PO WM Ciprofloxacin HCl (Cipro) 250 Mg Tablet, 250 MG PO BID Ergocalciferol (Vitamin D2) (Vitamin D2) 50,000 Units Cap, 50,000 UNITS PO QWEEK TAKES ON SUNDAYS Evolocumab (Repatha Sureclick) 140 Mg/1 Ml Pen.injctr, 1 ML IM Q2WK Losartan Potassium (Losartan Potassium) 50 Mg Tablet, 50 MG PO QPM Metoprolol Tartrate (Metoprolol Tartrate) 50 Mg Tablet, 50 MG PO BID Metronidazole (Flagyl) 500 Mg Tablet, 500 MG PO Q8H FOR 10 DAYS Omeprazole (Omeprazole) 40 Mg Cap, 40 MG PO BID Sucroferric Oxyhydroxide (Velphoro) 500 Mg Tab.chew, 500 MG PO WM Ubidecarenone (Co Q-10) 200 Mg Capsule, 200 MG PO DAILY Vit B Comp No.3/Folic/C/Biotin (Shila-Galdino Rx Tablet) 1 Each Tablet, 1 TAB PO DAILY Scheduled PRN Hydroxyzine HCl (Hydroxyzine HCl) 25 Mg Tablet, 25 MG PO BIDP PRN for ITCHING Allergies Coded Allergies: No Known Allergies (Unverified , 04/18/17) A-FIB/CHADSVASC A-FIB History Current/History of A-Fib/PAF?: No Current PO Anticoag Therapy: No LWANGA,KING MD Feb 13, 2020 15:20
[2020-02-13] MEDS ORDERED: CO Q1CAP2 PO (15:38)
[2020-02-13] MEDS ORDERED: VITA50005 PO (15:41)
[2020-02-13] MEDS ORDERED: CALC1CAP PO (15:41)
[2020-02-13] MEDS ORDERED: HYDR-3363 PO (15:42)
[2020-02-13] MEDS ORDERED: CALC1CAP31 PO (15:42)
[2020-02-13] MEDS ORDERED: RENATAB6 PO (15:42)
[2020-02-13 17:10] VITALS: BP 114/70
[2020-02-13] MEDS ORDERED: hydrOXYzine 25 MG TAB PO PRN (17:15)
[2020-02-13] MEDS: ACETAMINOPHEN TAB 650MG DOSE (2X325MG) PO PRN (18:01)
[2020-02-13] MEDS: CALCIUM ACETATE 667MG GELCAP PO SCH (18:01)
[2020-02-13] MEDS: SUCROFERRIC OXYHYDROXIDE 500MG CHEW TAB (VELPHORO) PO SCH (18:41)
[2020-02-13] MEDS: OMEPRAZOLE 20 MG CAP PO SCH (21:12)
[2020-02-13] MEDS: METOPROLOL TART 50 MG TAB PO SCH (21:13)
[2020-02-13] MEDS: LOSARTAN 50MG TABLET PO SCH (21:13)
[2020-02-13] MEDS: HEPARIN SOD (PORCINE) 5000UNITS/ML 1ML VIAL/SYRINGE SC SCH (21:14)
[2020-02-13 22:00] VITALS: BP 116/68
[2020-02-14 06:00] VITALS: BP 107/76
[2020-02-14 06:04] LABS: FERRITIN 780 NG/ML (26-388); IRON (FE) 20 UG/DL (65-175); PERCENT SATURATION 11.3 % (19.7-50.0); TOTAL IRON BINDING CAPACITY 177 UG/DL (250-450)
[2020-02-14 07:01] LABS: SOURCE, BODY FLUID PERITONEAL DIALYSATE
[2020-02-14 07:02] LABS: APPEARANCE, BODY FLUID CLEAR (CLEAR); PERITONEAL DIALYSATE FL COLOR COLORLESS (COLORLESS)
[2020-02-14 08:35] LABS: HEMATOCRIT 25.5 % (42.0-52.0); HEMOGLOBIN 8.3 g/dl (13.5-17.5); MEAN CORPUSCULAR HEMOGLOBIN 31.2 pg (27.0-33.0); MEAN CORPUSCULAR HGB CONC 32.5 g/dl (32.0-36.5); MEAN CORPUSCULAR VOLUME 95.9 fl (80.0-96.0); PLATELET COUNT, AUTOMATED 191 10^3/uL (150-450); RED BLOOD COUNT 2.66 10^6/uL (4.30-6.10)
[2020-02-14] MEDS: CALCIUM ACETATE 667MG GELCAP PO SCH ×3 (08:52→18:17)
[2020-02-14] MEDS: VITAMIN D 50,000 UNITS CAPSULE (ERGOCALCIFEROL 1.25MG) PO SCH (08:52)
[2020-02-14] MEDS: SUCROFERRIC OXYHYDROXIDE 500MG CHEW TAB (VELPHORO) PO SCH ×3 (08:52→18:17)
[2020-02-14] MEDS: HEPARIN SOD (PORCINE) 5000UNITS/ML 1ML VIAL/SYRINGE SC SCH ×2 (08:52→21:42)
[2020-02-14] MEDS: OMEPRAZOLE 20 MG CAP PO SCH ×2 (08:53→21:42)
[2020-02-14] MEDS: CALCITRIOL 0.25 MCG CAP (S0169) PO SCH (08:53)
[2020-02-14] MEDS: METOPROLOL TART 50 MG TAB PO SCH ×2 (08:53→21:41)
[2020-02-14 09:30] LABS: CALCIUM LEVEL 7.8 MG/DL (8.5-10.1); CREATININE FOR GFR 10.2 MG/DL (0.70-1.30); GLOMERULAR FILTRATION RATE 5.8 (>60); POTASSIUM SERUM 3.8 MEQ/L (3.5-5.1)
[2020-02-14 10:00] VITALS: BP 108/71
[2020-02-14] MEDS: GASTROGRAFIN SOLUTION 30ML PO SCH ×2 (12:47→13:15)
[2020-02-14] MEDS: IRON SUCROSE 200 MG in NS 100 ML IV SCH (13:15)
[2020-02-14] MEDS ORDERED: ISOVUE-370 76% 100ML VIAL As Ordered ONE (13:30)
[2020-02-14 14:00] VITALS: BP 132/86
[2020-02-14] MEDS: ACETAMINOPHEN TAB 650MG DOSE (2X325MG) PO PRN (14:45)
[2020-02-14] MEDS ORDERED: MEROPENEM INJ 1 GM in IV 1 EA IV SCH (16:00)
[2020-02-14 18:00] VITALS: BP 120/80
[2020-02-14] MEDS: LOSARTAN 50MG TABLET PO SCH (21:42)
[2020-02-14 22:00] VITALS: BP 123/82
[2020-02-14] MEDS: MEROPENEM XX SCH (22:50)
[2020-02-15 02:00] VITALS: BP 123/81
[2020-02-15 06:00] VITALS: BP 126/82
--- NOTE | 2020-02-15 06:43 | CR ---
DATE OF CONSULTATION: 02/14/2020 REQUESTING PHYSICIAN: Dr. Mary Almendarez CONSULTING PHYSICIAN: Dr. Seay REASON FOR CONSULTATION: Management of end-stage renal disease, peritoneal dialysis and possible peritonitis. CHIEF COMPLAINT: The patient presented to the hospital yesterday with persistent lower abdominal pain. HISTORY OF PRESENT ILLNESS:: Mr. 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 He was seen in outpatient peritoneal dialysis center 3 days ago for lower abdominal pain. His peritoneal dialysate was cloudy and it was sent to the lab and the white cell count in the peritoneal fluid was elevated. He was empirically started on treatment with intraperitoneal vancomycin and gentamicin. Vancomycin bolus was given on the first day and he was getting gentamicin 40 mg intraperitoneal every day. However, despite getting 3 days of intraperitoneal antibiotics, his lower abdominal pain was recurrent and persistent and it ranged anywhere from 2/10 to 10/10, so he presented to the emergency room yesterday. The patient was discussed by myself with the ER physician. He had already gotten the CAT scan of the abdomen without contrast which did not show any abnormality. IV meropenem was started for possible failure of the outpatient intraperitoneal antibiotics. Nephrology service was called for further help in the management of this patient. I saw and evaluated the patient today morning. He reported that his abdominal pain is getting better with the IV antibiotics that were given to him yesterday. He does report that he is retaining the fluid instead of getting ultrafiltration with the peritoneal dialysis. PAST MEDICAL HISTORY: 1. End-stage renal disease and hearing problems because of Alport syndrome, currently peritoneal dialysis dependent. 2. 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 3. Pulmonary hypertension. 4. Gastroesophageal reflux disease. 5. History of VSD repair when he was 3 years of age. PAST SURGICAL HISTORY: 1. VSD repair at 3 years of age. 2. Status post peritoneal dialysis catheter placement. ALLERGIES: No known drug allergies. FAMILY HISTORY: There is positive family history of Alport syndrome and history of kidney transplants. 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 REVIEW OF SYSTEMS: Constitutional: He denies any fevers or chills. Eyes: He reports history of eye problems requiring laser because of Alport syndrome. ENT: He reports history of hearing problems because of Alport. He denies any dysphagia or odynophagia. Cardiovascular: He reports cardiomyopathy, but he denies any chest pain. Respiratory: Denies any shortness of breath or cough. GI: He denies any nausea or vomiting, but he does report lower abdominal pain. Genitourinary: He denies any dysuria, hematuria or difficulty with urination. Musculoskeletal: He denies any muscle aches and pains. Skin: He denies any rashes or ulcers. Psych: He denies any depression or anxiety. Endocrine: He denies any history of diabetes. Hematology/Oncology: He denies any easy bleeding or bruising. TIME BROKER: He denies any strokes or seizures. All other review of systems is negative. PHYSICAL EXAMINATION: General: The patient is awake, alert, oriented x3, laying in bed in no apparent distress. Head and Neck Exam: Extraocular muscles intact. Pupils equally round and reactive to light. The patient is wearing hearing aids in both ears. Neck is supple. Cardiovascular: S1, S2. Regular rate. No edema of the bilateral lower extremities. Respiratory: Chest is clear to auscultation bilaterally. Bilateral equal air entry. No rales or rhonchi. Abdomen: Soft. Positive bowel sounds. Left lower quadrant peritoneal dialysis catheter, exit site is clean. He has mild tenderness to deep palpation in the suprapubic region. Genitourinary: Bladder is not palpable. Musculoskeletal: No clubbing or cyanosis. Pulses are 2+. TIME BROKER: The patient is hard of hearing, otherwise no focal deficit. He moves all extremities. Psych: Normal mood and affect. LAB REVIEW: CBC showed a WBC of 11 on admission yesterday, it is 8 today, hemoglobin is 8.3, platelets of 191. Urinalysis done yesterday showed 2+ protein, there was no blood and only 2 WBCs. Peritoneal fluid cell count done today morning was only 3. BMP done today morning showed sodium 140, potassium 3.8, chloride 105, bicarb 28, BUN 57 creatinine 10.2, glucose 124, lactic acid 0.9, calcium 7.8. Iron is 20, TIBC is 177, transferrin saturation is 11.3, and ferritin is 780. Vancomycin trough was 18.4 yesterday. Microbiology: Blood cultures are negative so far. Gram stain of the peritoneal fluid showed no cells and no organisms. IMAGING: CT scan of the abdomen and pelvis done without contrast yesterday showed no intraperitoneal fluid collection, minimal inflammatory sequela of the mesenteric, no bowel obstruction. CURRENT INPATIENT MEDICATIONS: The patient was given one dose of IV meropenem 1 gram, now he has been switched to intraperitoneal meropenem 1 gram daily. He is on Tylenol p.r.n., calcitriol 0.25 mcg daily, PhosLo 667 mg by mouth with meals, hydroxyzine p.r.n. for itching, losartan 50 mg daily, metoprolol tartrate 50 mg by mouth twice a day, omeprazole 40 mg by mouth twice a day, Velphoro 500 mg with meals and vitamin D 50,000 units once a week. ASSESSMENT: 49-year-old male with past medical history of end-stage renal disease secondary to Alport syndrome, currently on peritoneal dialysis, cardiomyopathy, listed for heart and kidney transplant, currently being treated as outpatient for peritonitis admitted at this time for recurrent abdominal pain. PLAN: 1. Peritonitis associated with peritoneal dialysis catheter. I was told by the dialysis nurses that he had elevated white cell count. He was already given vancomycin and gentamicin as outpatient. Looking at the peritoneal fluid cell count today morning, it looks like his peritonitis is successfully treated. He only has 3 WBCs in the fluid. However, since he got a dose of meropenem yesterday, I would give him another dose of intraperitoneal meropenem. I will get in touch with the dialysis center to see if there is any culture sensitivity results back. He is already adequately covered for gram positive organisms with vancomycin. Trough level was 18.4 yesterday. He will be given another dose of intraperitoneal vancomycin on Saturday or Saturday depending upon his levels. 2. End-stage renal disease, peritoneal dialysis dependent. The patient reports no issues with PD catheter flow. Fluid was cloudy and had some fibrin in it. He was given intraperitoneal heparin today. Volume status is optimal. Continue current regimen of five manual exchanges, all 1.5%, all 1.5 liters. 3. Iron deficiency anemia. The patient's iron levels are low. I am going to start him on IV Venofer starting tomorrow morning. 4. Secondary hyperparathyroidism. Continue current home dose of calcitriol 0.25 mcg by mouth daily. 5. Chronic kidney disease mineral bone disease. Continue current dose of PhosLo and Velphoro with meals. 6. Cardiomyopathy. The patient is listed for kidney and heart transplant. Continue current dose of metoprolol and losartan. Volume status is optimal. Blood pressure is controlled. DISPOSITION: Hopefully, if the patient's symptom get better and once we get the result for peritoneal fluid cell count and culture from the outpatient dialysis center, we should be able to discharge the patient home in the next 24-48 hours. Thank you for involving me in the care of this patient. I shall be happy to follow the patient along with you tomorrow morning.
[2020-02-15] MEDS: SUCROFERRIC OXYHYDROXIDE 500MG CHEW TAB (VELPHORO) PO SCH ×2 (09:28→12:34)
[2020-02-15] MEDS: METOPROLOL TART 50 MG TAB PO SCH ×2 (09:28→21:17)
[2020-02-15] MEDS: CALCIUM ACETATE 667MG GELCAP PO SCH ×3 (09:28→18:21)
[2020-02-15] MEDS: HEPARIN SOD (PORCINE) 5000UNITS/ML 1ML VIAL/SYRINGE SC SCH ×2 (09:29→21:16)
[2020-02-15] MEDS: IRON SUCROSE 200 MG in NS 100 ML IV SCH (09:29)
[2020-02-15] MEDS: OMEPRAZOLE 20 MG CAP PO SCH ×2 (09:29→21:17)
[2020-02-15] MEDS: CALCITRIOL 0.25 MCG CAP (S0169) PO SCH (09:29)
--- NOTE | 2020-02-15 09:31 | REP ---
CT ABDOMEN AND PELVIS WITH IV AND ORAL CONTRAST: HISTORY: Followup on peritonitis. Patient on dialysis. CT CONTRAST DOSE: 100 mL of intravenous Isovue 370. COMPARISON CT STUDY: February 13, 2020 and January 07, 2017. CT FINDINGS: Preliminary digital credit or loans officer radiograph shows a dialysis catheter in the right lower quadrant. Bowel gas pattern is normal. Pacemaker leads are noted in the enlarged heart. No pleural effusion is seen. The lung bases are clear on axial CT images. There is a 1.1 cm hypervascular lesion at the capsular surface of the left lobe of the liver anteriorly consistent with hemangioma. This is felt to be visible in retrospect on [address] as a hypodensity. No other focal liver lesion is seen. The spleen is unremarkable. No abnormalities noted in the pancreas. Normal adrenal glands are seen bilaterally. There is a stable portacaval lymph node measuring 0.7 cm in short axis dimension unchanged from 2017. There is mild diffuse abdominal ascites, which is a new finding and could be related to the dialysis catheter. Small and large bowel loops are unremarkable. There is a moderate amount of ingested material in the stomach. There is mural thickening and adjacent pericolonic mesenteric stranding in the sigmoid colon consistent with acute diverticulitis. There are a few air bubbles in the pericolonic fat superior to this segment. No yari abscess is visible. There is no evidence of free intraperitoneal air. Urinary bladder, prostate and seminal vesicles are unremarkable. There is some vascular calcification in a normal caliber aorta. Mild cortical atrophy is seen in the kidneys bilaterally no hydronephrosis. IMPRESSION: 1. Findings consistent with acute diverticulitis of the sigmoid colon with a few air bubbles outside the colon in the adjacent pericolonic fat. No yari abscess is seen. Some mesenteric fat edema and infiltration is noted. 2. Dialysis catheter and mild diffuse ascites is noted in place. 3. Cardiomegaly. 4. 1.1 cm hemangioma of the left lobe of the liver. Electronically Signed by Jose Alberto MD 02/15/2020 02:52 P
[2020-02-15 10:00] VITALS: BP 129/80
[2020-02-15 10:39] LABS: HEMOGLOBIN 8.6 g/dl (13.5-17.5); MEAN CORPUSCULAR HEMOGLOBIN 30.7 pg (27.0-33.0); MEAN CORPUSCULAR HGB CONC 31.9 g/dl (32.0-36.5); MEAN CORPUSCULAR VOLUME 96.4 fl (80.0-96.0); PLATELET COUNT, AUTOMATED 200 10^3/uL (150-450); WHITE BLOOD COUNT 6.8 10^3/uL (4.0-10.0)
[2020-02-15] MEDS ORDERED: VANCOMYCIN 1000MG/20ML VIAL IP ONE (10:45)
[2020-02-15] MEDS ORDERED: CIPR-250 PO (10:49)
[2020-02-15] MEDS ORDERED: FLAG500T PO (10:49)
[2020-02-15 11:04] LABS: ALBUMIN 1.9 GM/DL (3.2-5.2); CALCIUM LEVEL 8.2 MG/DL (8.5-10.1); CREATININE FOR GFR 9.03 MG/DL (0.70-1.30); GLOMERULAR FILTRATION RATE 6.7 (>60); PHOSPHORUS LEVEL 3.5 MG/DL (2.5-4.9); POTASSIUM SERUM 3.8 MEQ/L (3.5-5.1)
[2020-02-15 11:29] LABS: TOTAL 25(OH) VITAMIN D 60.6 NG/ML (30.0-100.0)
[2020-02-15 11:30] LABS: VITAMIN B12 LEVEL 956 PG/ML
[2020-02-15 11:31] LABS: FOLATE > 24.0 NG/ML
[2020-02-15] MEDS ORDERED: CIPROFLOXACIN 250MG TAB PO SCH (12:00)
[2020-02-15] MEDS ORDERED: CIPROFLOXACIN 500MG TABLET PO SCH (12:00)
[2020-02-15] MEDS ORDERED: metroNIDAZOLE (FLAGYL) 500MG TABLET PO SCH (12:00)
[2020-02-15 13:51] LABS: APPEARANCE, BODY FLUID HAZY (CLEAR); PERITONEAL DIALYSATE FL COLOR COLORLESS (COLORLESS); SOURCE, BODY FLUID PERITONEAL DIALYSATE
[2020-02-15 14:00] VITALS: BP 126/79
[2020-02-15] MEDS: ACETAMINOPHEN TAB 650MG DOSE (2X325MG) PO PRN (14:46)
[2020-02-15 18:00] VITALS: BP 135/81
[2020-02-15] MEDS: CIPROFLOXACIN 250MG TAB PO SCH (18:21)
[2020-02-15] MEDS ORDERED: METOCLOPRAMIDE INJ 10MG/2ML VIAL (J2765 PER 1) IV ONE (19:00)
[2020-02-15] MEDS ORDERED: FIORICET TAB PO ONE (19:00)
--- NOTE | 2020-02-15 21:05 | IPN ---
DATE: 02/15/2020 Patient continues to complain of diffuse abdominal pain, but has not had any fever. Last maximum temperature (T max) was 100.1 on 02/13/2020 at 2200 hours. Patient has a normal white count, had received IV meropenem, downgraded to Cipro and Flagyl, still receiving intraperitoneal meropenem for peritonitis. Patient's cell count on the peritoneal fluid was very high. He is continued on intraperitoneal meropenem for peritonitis. The patient has had decrease in appetite and had one bowel movement yesterday. Per Dr. Seay, patient is to continue with antibiotics and no discharge today. Temperature 99, pulse 88, respiratory rate 18, blood pressure 126/79, 100% on room air. Generally, patient is awake, alert, oriented times three, answering questions appropriately. No cyanosis, no clubbing, no icterus, no jaundice, no jugular venous distention (JVD) or thyromegaly. Lungs are clear to auscultation. No wheezing or rales. Heart: S1, S2, sinus rhythm. Abdomen is distended, diffusely tender. No rebound, guarding. Positive bowel sounds. Extremities: Chronic edema. Laboratory data reviewed. CT abdomen and pelvis with IV and oral contrast showed sigmoid diverticulitis. ASSESSMENT AND PLAN: A 49-year-old with a history of Alport syndrome, end-stage renal disease with hearing problems, on peritoneal dialysis with chronic systolic and diastolic heart failure secondary to cardiomyopathy, pulmonary hypertension, ventricular septal defect (VSD) as a child since the age of 3 with repair, reflux, presents to the emergency room with fever, increasing abdominal pain. Found to have acute sigmoid diverticulitis as well as peritonitis secondary to peritoneal dialysis catheter. IMPRESSION: 1. Sepsis secondary to sigmoid diverticulitis and peritonitis associated with peritoneal dialysis. Patient had received intraperitoneal vancomycin and gentamicin as outpatient. Peritoneal fluid had significant amount of cells and is to be continued with intraperitoneal meropenem per nephrology. 2. Acute sigmoid diverticulitis. Patient is to continue on Cipro and Flagyl. For now, no abscess is noted. He is afebrile with normal white count. 3. End-stage renal disease. Peritoneal dialysis dependent secondary to Alport syndrome and history of systolic and diastolic congestive heart failure, currently dialysis dependent. Defer to nephrology for further management. 4. Iron deficiency anemia. Requiring Venofer. 5. Secondary hyperparathyroidism. On chronic calcitonin. 6 Cardiomyopathy. Patient is a kidney and heart transplant candidate. Currently on metoprolol and losartan. DISPOSITION: Patient is to be kept in the hospital. No discharge today due to increased cells in the peritoneal fluid.
[2020-02-15] MEDS: LOSARTAN 50MG TABLET PO SCH (21:16)
[2020-02-15 22:00] VITALS: BP 132/80
[2020-02-15] MEDS: MEROPENEM XX SCH (22:15)
[2020-02-15] MEDS: metroNIDAZOLE (FLAGYL) 500MG TABLET PO SCH (22:15)
[2020-02-16] VITALS (7 sets, daily range): BP systolic 109–139; BP diastolic 65–84
[2020-02-16] MEDS ORDERED: MORPHINE 2 MG/ML 1ML VIAL (J2270) IV ONE ×2 (03:15→04:00)
--- NOTE | 2020-02-16 04:40 | REPVR ---
PROCEDURE INFORMATION: Exam: XR Abdomen, 1 View Exam date and time: 02/16/2020 4:13 AM Age: 49 years old Clinical indication: Abdominal tenderness; Patient HX: Peritonitis; Additional info: Abdominal pain TECHNIQUE: Imaging protocol: XR of the abdomen. Views: Frontal supine view of the abdomen. 1 View. COMPARISON: CT ABD/PEL W/IV ORAL CONTRAS 02/14/2020 2:13 PM FINDINGS: Tubes, catheters and devices: Peritoneal drainage catheter is seen entering the left upper abdominal quadrant with its distal and coiled in the right lower abdominal quadrant/right hemipelvis. Gastrointestinal tract: Contrast and stool seen in the colon. No abnormally dilated small bowel loops seen. Bones/joints: Unremarkable. IMPRESSION: 1. No radiographic evidence of bowel obstruction. 2. Peritoneal drainage catheter with its distal end coiled in the right lower abdominal quadrant/hemipelvis. Electronically signed by: Calvin Smiley On 02/16/2020 04:40:11 AM
[2020-02-16] MEDS: CIPROFLOXACIN 250MG TAB PO SCH (06:10)
[2020-02-16] MEDS: metroNIDAZOLE (FLAGYL) 500MG TABLET PO SCH (06:10)
[2020-02-16 07:01] LABS: APPEARANCE, BODY FLUID CLOUDY (CLEAR); PERITONEAL DIALYSATE FL COLOR PALE YELLOW (COLORLESS); SOURCE, BODY FLUID PERITONEAL DIALYSATE
[2020-02-16] MEDS: CALCIUM ACETATE 667MG GELCAP PO SCH (08:00)
[2020-02-16 08:17] LABS: BASO % 0.3 % (0.0-1.0); EOS % 0.6 % (0.0-3.0); HEMATOCRIT 26.5 % (42.0-52.0); HEMOGLOBIN 8.4 g/dl (13.5-17.5); LYMPH # 0.5 10^3/uL (1.5-5.0); LYMPH % 7.3 % (24.0-44.0); MEAN CORPUSCULAR HEMOGLOBIN 30.4 pg (27.0-33.0); MEAN CORPUSCULAR HGB CONC 31.7 g/dl (32.0-36.5); MONO # 0.4 10^3/uL (0.0-0.8); MONO % 6.5 % (0.0-5.0); NEUTROPHILS # 5.3 10^3/uL (1.5-8.5); NEUTROPHILS % 84.2 % (36.0-66.0); PLATELET COUNT, AUTOMATED 217 10^3/uL (150-450); RED BLOOD COUNT 2.76 10^6/uL (4.30-6.10); WHITE BLOOD COUNT 6.3 10^3/uL (4.0-10.0)
[2020-02-16] MEDS: CALCITRIOL 0.25 MCG CAP (S0169) PO SCH (08:24)
[2020-02-16] MEDS: OMEPRAZOLE 20 MG CAP PO SCH ×2 (08:24→21:59)
[2020-02-16] MEDS: METOPROLOL TART 50 MG TAB PO SCH ×2 (08:25→21:58)
[2020-02-16] MEDS: HEPARIN SOD (PORCINE) 5000UNITS/ML 1ML VIAL/SYRINGE SC SCH ×2 (08:25→21:59)
[2020-02-16 08:44] LABS: ALBUMIN 1.9 GM/DL (3.2-5.2); CALCIUM LEVEL 8.1 MG/DL (8.5-10.1); CREATININE FOR GFR 8.65 MG/DL (0.70-1.30); PHOSPHORUS LEVEL 2.2 MG/DL (2.5-4.9); POTASSIUM SERUM 3.6 MEQ/L (3.5-5.1)
--- NOTE | 2020-02-16 09:30 | IPN ---
DATE: 02/14/2020 The patient still complains of diffuse abdominal pain, worse in the left lower quadrant, rated at 6/10 when he is resting, 10/10 when he starts to move around. The patient did receive meropenem in the emergency room, but peritoneal fluid was not sent at that time. Ascitic fluid sent this morning at 6:43 shows white blood count (WBC) of 3, differential was not sent. Nephrology has been consulted for help with his dialysis needs. He had a low-grade temperature of 100.1, no nausea or vomiting this morning, no chills. Vital Signs: T-max 100.1, current temperature 99.5, pulse 81, respiratory rate 18, blood pressure 108/71. General: The patient is awake, alert, and oriented times 3, answers questions appropriately. No icterus, no jaundice. No thyromegaly, cervical lymphadenopathy. Moist mucous membranes. Lungs are clear to auscultation, wheezes, rales or rhonchi. Heart: S1, S2 sinus rhythm. No murmurs, rubs or gallops. Abdomen is distended, diffusely tender, no rebound or guarding. Positive bowel sounds. Hypoactive. Extremities: No cyanosis or clubbing. LABORATORY DATA: White count 8, hemoglobin 8.3, hematocrit 25, platelet count 191. Sodium 140, potassium 3.8, chloride 105, bicarbonate 28, BUN 57, creatinine 10, glucose of 124. Imaging study: CT abdomen and pelvis 02/13/2020. No intraperitoneal fluid collection. Minimal inflammatory sequelae at the mesentery. No bowel obstruction. ASSESSMENT AND PLAN: 49-year-old male with end-stage renal disease on peritoneal dialysis managed by nephrology, hypertension and chronic systolic and diastolic failure, coronary hypertension, systemic hypertension, reflux, ventricular septal effect repaired at the age of 3 or 4 years old with PermCath, presents to the emergency room with diffuse abdominal pain and was started on vancomycin and gentamicin for peritonitis; finish a course on . The patient has had no fevers at home. Currently admitted for the following issues: 1. Acute peritonitis in the setting of peritoneal dialysis. Dr. Seay has been consulted. The patient had received meropenem in the emergency room (ER); he has been continued on IV meropenem, dosed renally. Defer to Dr. Seay whether intraperitoneal gentamicin and vancomycin is warranted. 2. End-stage renal disease with secondary hyperparathyroidism. He is on calcium acetate, ergocalciferol calcitriol managed by nephrology for dialysis needs. 3. Chronic systolic and diastolic heart failure with chronic systemic hypertension on metoprolol and losartan. 4. Normocytic anemia, most likely due to renal failure. Defer to nephrology for Venofer and iron supplements. 5. Acute diverticulitis on cipro flagyl DISPOSITION: Defer to nephrology. MTDD
[2020-02-16] MEDS ORDERED: ONDANSETRON 4MG/2ML VIAL IV PRN (10:45)
--- NOTE | 2020-02-16 11:20 | IPN ---
DATE OF SERVICE: 02/15/2020 SUBJECTIVE: Mr. Bassett was seen and examined this morning during bedside rounds. He states he is feeling much better. He does continue to complain of lower abdominal discomfort which is only persistent and worsened with palpation. He does note it is there at baseline, but it is a tolerable pain and he does not need any oral pain relief. He does state he would like to go home later this afternoon if he can as he has things he needs to take care of for work. There were no overnight events reported such as fevers, chills or night sweats. He denies any nausea, vomiting or diarrhea. He does state he has an appetite this morning, but he has just woke up and he will try eating breakfast later this morning. PHYSICAL EXAMINATION: Vitals: Temperature 98.8, pulse 93, respirations 20, blood pressure 129/80 (96), pulse oximetry 99% on room air. Intake total 8460 mL, output total 7250 mL, with a balance of +1210 mL. Weight this morning was 83.2 kg. General: This is a very pleasant, 49-year-old male who is sitting up in his bed appropriately answering questions and does not appear in acute distress. HEENT: Atraumatic, normocephalic. Pupils equal round and reactive. He has bilateral hearing aids in place. No jugular venous distention (JVD) noted. Cardiovascular: S1, S2 sounds. Regular rate and rhythm. No lower extremity edema. Respirations clear to auscultate bilaterally. No audible wheezing, rhonchi or rales. Abdomen: Soft. Positive bowel sounds. Left lower quadrant peritoneal dialysis in place. Mild tenderness to palpation in the suprapubic region. Musculoskeletal: No lower extremity edema. No joint tenderness. Neurologic: Bilateral hearing aids secondary to hard of hearing, but no obvious focal deficits noted. LABORATORIES: WBC 6.8, hemoglobin 8.6, hematocrit 27.0, platelets 200. Chemistry: Sodium 139, potassium 3.8, chloride 103, carbon dioxide 28, BUN 61, creatinine 9.0, fasting glucose 106, calcium 8.2, phosphorus 3.5. Other body source, peritoneal dialysis fluid with WBC 468, PMN 69.0, mononuclear 30.6. MEDICATIONS: Medications reviewed by me this morning. No new medications were done prior to reviewing. Please refer to our medication recommendations. IMAGING: CT of abdomen and pelvis from yesterday showed findings consistent with: 1. Acute diverticulitis of the sigmoid colon, a few air bubbles outside the colon in the pericolonic fat, no yari abscess seen. 2. Dialysis catheter and mild diffuse ascites was noted in place. 3. Cardiomegaly. 4. 1.1 cm hemangioma of the left lobe of the liver. ASSESSMENT AND PLAN: 1. Peritonitis associated with peritoneal dialysis catheter. Originally his peritoneal fluid at the clinic had an elevated white count and he was given vancomycin and gentamicin to which he responded appropriately. WBC in peritoneal fluid on admission was 3, but his repeat WBC of his peritoneal fluid this morning was elevated at 468. His CT of his abdomen did show a diverticulitis in the sigmoid colon which could be a possible source. At this current time, we had a discussion about possible discharge later this afternoon, but because the peritoneal fluid showed elevated WBC, we recommend against it. At this current time, we advised another dose of meropenem plus 2 grams of vancomycin. We will recheck his peritoneal dialysis fluid in the morning and reassess his abdominal discomfort to see if it is actually resolved. 2. End-stage renal disease, peritoneal dialysis dependent. He is tolerating his peritoneal dialysis with adequate flow. We will continue with his current regimen of five manual exchanges at 1.5%. He will continue with his intraperitoneal heparin as well. Following his exchange in the morning, we will send his peritoneal fluid for WBC count to trend to see improvement. 3. Iron deficiency anemia. Continue with Venofer IV. 4. Secondary hyperparathyroidism. Continue with home dose calcitriol 0.25 mcg by mouth daily. 5. Chronic kidney disease mineral bone disease. Continue with PhosLo and Velphoro with meals. 6. Cardiomyopathy S/P VDS repair in childhood. He is listed for kidney and heart transplant. Continue with current dose of metoprolol and losartan. Volume status and blood pressures currently optimized and controlled respectively. MTDD
[2020-02-16] MEDS: MEROPENEM INJ 1 GM in IV 1 EA IV SCH (12:17)
[2020-02-16] MEDS: MORPHINE 2 MG/ML 1ML VIAL (J2270) IV PRN ×2 (14:53→23:48)
--- NOTE | 2020-02-16 15:59 | IPNPDOC ---
Date Seen The patient was seen on 02/16/20. Progress Note SUBJECTIVE: Peritoneal fluid WBC increased to >24,000 with severe abdominal pain over the evening. The patient remains on meropenem, afebrile, serum WBC within normal limits. At this time nephrology does not plan to take the peritoneal dialysis catheter out but is concerned for questionable microperforations with diverticulitis. Surgery consulted. The patient has abdominal discomfort, especi ally positional, 8/10 pain at its worst but currently 3/10. Denies chest pain, increased shortness of breath, fevers, chills, nausea or vomiting. OBJECTIVE: VITAL SIGNS: Please see below PHYSICAL EXAMINATION: CONSTITUTIONAL: No acute distress, resting comfortably, AAO x 3 EYES: PERRLA, EOM intact HENT, MOUTH: Normocephalic, atraumatic, moist mucous membranes NECK: SUPPLE, no JVD, no lymphadenopathy, no carotid bruit CV: Regular rate and rhythm, S1S2 normal, no murmurs/rubs/gallops RESPIRATORY: Clear to auscultation bilaterally, no rales/rhonchi/wheezes GI: Distended abdomen, tender to deep palpation 3/10, BS positive in 4 quadrants, no rebound or guarding, no organomegaly, multiple well healed scars on abdomen : Deferred MUSCULOSKELETAL: Normal ROM. No cyanosis, clubbing, swelling, joint deformity, extremity edema INTEGUMENTARY: Intact, no rashes, no lesions, no erythema NEUROLOGIC: Cranial Nerves II-XII are intact, no focal deficits PSYCHIATRIC: Mood and affect are normal CURRENT MEDICATIONS: Please see below LABORATORY DATA: Please see below IMAGING: CT abdomen/pelvis: 1. Acute diverticulitis of the sigmoid colon, a few air bubbles outside the colon in the pericolonic fat, no yari abscess seen. 2. Dialysis catheter and mild diffuse ascites was noted in place. 3. Cardiomegaly. 4. 1.1 cm hemangioma of the left lobe of the liver. ASSESSMENT: 49 y/o M treated for diverticulitis with suspicion for microperforation, spontaneous bacterial peritonitis. PLAN: 1. Acute bacterial peritonitis likely 2/2 to peritoneal dialysis vs. microperforation due to diverticulitis. Currently on meropenem. Will discuss with team to see if need to broaden abx currently. F/u repeat peritoneal fluid studies, serum CBC. Nephrology does not wish to take peritoneal catheter out at this time, following closely. Surgery consulted. 2. End-stage renal disease, peritoneal dialysis depended. C/w current schedule, not removing catheter at this time. Nephrology following. 3. Secondary hyperparathyroidism. C/w calcitriol 0.25 mcg by mouth daily. 4. Chronic systolic and diastolic heart failure. Not currently in exacerbation. C/w BB, ARB, 5. HTN. Stable. C/w metoprolol and losartan. 6. Anemia likely 2/2 to chronic disease and iron deficiency. C/w venofer IV. 7. 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 He is listed for kidney and heart transplant. C/w metoprolol and losartan. 8. DVT px. Heparin. DISPOSITION: Currently inpatient status. Plan is discharge home when medically improved. VS, I&O, 24H, Fishbone Vital Signs/I&O Vital Signs Date Time Temp Pulse Resp B/P (MAP) Pulse Ox O2 Delivery O2 Flow Rate FiO2 02/16/20 15:03 18 Room Air 02/16/20 14:00 98.1 92 110/65 (80) 100 I&O- Last 24 Hours up to 6 AM 02/16/20 05:59 Intake Total 6790 ml Output Total 6400 ml Balance 390 ml Laboratory Data 24H LABS Laboratory Tests 2 02/16/20 06:28: Body Fluid Source PERITONEAL DIALYSATE, Body Fluid WBC (Auto) 76047X, Body Fluid RBC (Auto) < 2, Body Fluid Mononuclear Cells % Auto 6.0H, Fluid Polymorphonuclear Cell % Auto 94.0H, Peritoneal Fluid Color PALE YELLOW, Peritoneal Fluid Appearance CLOUDY 02/16/20 07:44: Immature Granulocyte % (Auto) 1.1, Neutrophils (%) (Auto) 84.2H, Lymphocytes (%) (Auto) 7.3L, Monocytes (%) (Auto) 6.5H, Eosinophils (%) (Auto) 0.6, Basophils (%) (Auto) 0.3, Neutrophils # (Auto) 5.3, Lymphocytes # (Auto) 0.5L, Monocytes # (Auto) 0.4, Eosinophils # (Auto) 0.0, Basophils # (Auto) 0.0, Nucleated Red Blood Cells % (auto) 0.3H, Anion Gap 8, Glomerular Filtration Rate 7.0L, Calcium Level 8.1L, Phosphorus Level 2.2#L, Albumin 1.9L CBC/BMP Laboratory Tests 02/16/20 07:44 Microbiology Microbiology 02/16/20 Gram Stain - Final, Resulted 02/16/20 Body Fluid Culture, Resulted Pending 02/14/20 Acid Fast Stain, Received Pending 02/14/20 Mycobacterial Culture, Received Pending 02/14/20 Fungal Smear, Received Pending 02/14/20 Fungal Culture, Received Pending 02/14/20 Gram Stain - Final, Complete 02/14/20 Body Fluid Culture - Final, Complete 02/13/20 Blood Culture - Preliminary, Resulted No Growth after 48 hours. All Specime... 02/13/20 Blood Culture - Preliminary, Resulted No Growth after 72 hours. All specime... 02/13/20 Blood Culture - Preliminary, Resulted No Growth after 72 hours. All specime... Current Medications Current Medications Medications (Trade) Dose Ordered Sig/Marko Route PRN Reason Start Time Stop Time Status Last Admin Dose Admin Acetaminophen (Tylenol Tab) 650 mg Q4H PRN PO PAIN OR FEVER 02/13/20 15:15 02/15/20 14:46 Calcitriol (Rocaltrol) 0.25 mcg DAILY PO 02/14/20 09:00 02/16/20 08:24 Calcium Acetate (Phoslo) 667 mg WM PO 02/13/20 18:00 02/16/20 10:39 DC 02/15/20 18:21 Ciprofloxacin (Cipro) 250 mg BID PO 02/15/20 12:00 02/15/20 14:24 DC 02/15/20 12:34 Ciprofloxacin (Cipro) 250 mg BID@06,18 PO 02/15/20 18:00 02/16/20 07:38 DC 02/16/20 06:10 Ciprofloxacin (Cipro) 500 mg DAILY@06 PO 02/15/20 12:00 02/15/20 11:28 DC Diatrizoate Meglum/ Diatrizoate Sod (Gastrografin) 10 ml Q30M PO 02/14/20 12:45 02/14/20 13:16 DC 02/14/20 13:15 Heparin Sodium (Porcine) (Heparin) 5,000 units Q12H SC 02/13/20 21:00 02/16/20 08:25 Home Med (Med Rec Complete!) ASDIRECTED XX 02/13/20 15:45 02/13/20 15:58 DC Hydroxyzine HCl (Atarax) 25 mg BIDP PRN PO ITCHING 02/13/20 17:15 Iron 200 mg/ Sodium Chloride 110 ml @ 110 mls/hr DAILY IV 02/14/20 13:00 02/15/20 14:27 DC 02/15/20 09:29 Losartan Potassium (Cozaar) 50 mg QPM PO 02/13/20 21:00 02/15/20 21:16 Meropenem (Merrem) 1 gm Q24H XX 02/14/20 22:00 02/16/20 07:38 DC 02/15/20 22:15 Meropenem 1 gm/IV Miscellaneous Supplies 50 ml @ 100 mls/hr Q24H IV 02/14/20 16:00 02/13/20 18:41 DC Meropenem 1 gm/IV Miscellaneous Supplies 50 ml @ 100 mls/hr Q24H IV 02/16/20 12:00 02/16/20 12:17 Metoprolol Tartrate (Lopressor) 50 mg BID PO 02/13/20 21:00 02/16/20 08:25 Metronidazole (Flagyl) 500 mg Q8H PO 02/15/20 12:00 02/15/20 14:24 DC 02/15/20 12:34 Metronidazole (Flagyl) 500 mg Q8H PO 02/15/20 22:00 02/16/20 07:38 DC 02/16/20 06:10 Morphine Sulfate (Morphine Sulfate Inj) 2 mg Q4H PRN IV MODERATE PAIN (PS 5-7) 02/16/20 08:15 02/16/20 14:53 Omeprazole (PriLOSEC) 40 mg BID PO 02/13/20 21:00 02/16/20 08:24 Ondansetron HCl (ZOFRAN INJection) 4 mg Q6HP PRN IV NAUSEA OR VOMITING 02/16/20 10:45 Sucroferric Oxyhydroxide (Velphoro) 500 mg WM PO 02/13/20 18:00 02/15/20 14:27 DC 02/15/20 12:34 Vitamin D (Drisdol) 50,000 units Luis@0900 PO 02/14/20 09:00 02/14/20 08:52 Allergies Coded Allergies: No Known Allergies (Unverified , 04/18/17) Missy Ascencio MD Feb 16, 2020 15:59
--- NOTE | 2020-02-16 17:01 | IPN ---
DATE OF SERVICE: 02/16/2020 SUBJECTIVE: The patient was seen and examined at the bedside today morning. Last 24-hour events were noted. The patient is clinically worse today as compared with yesterday. He reports severe lower abdominal pain at around 3 o'clock today morning. He was doubled over with the pain. He needed two injections of morphine to control his pain. Patient's peritoneal fluid cell count is also worse today as compared with yesterday, despite getting intraperitoneal vancomycin and meropenem yesterday. OBJECTIVE: Vital signs: Temperature is 97.8 degrees Fahrenheit, blood pressure 110/73, pulse is 112, respiratory rate of 18, saturating 96% on room air. Intake and output: Urine output recorded as 200 mL. Ultrafiltration so far with peritoneal dialysis is negative 100 mL. Weight in the bed scale is not available. PHYSICAL EXAMINATION: General: The patient is awake, alert, oriented times three, laying in bed. Head and neck exam: Extraocular muscles intact. Pupils equally round and reactive to light. He is hard of hearing and wearing hearing aid. Mucous membranes are moist. Neck is supple. There is no jugular venous distention (JVD). Cardiovascular: S1, S2, tachycardia. No edema of the bilateral lower extremities. Respiratory: Chest is clear to auscultation bilaterally. Bilateral equal air entry. No rales or rhonchi. Abdomen: Soft. It has moderate amount of tenderness in the left lower quadrant and in suprapubic region. Peritoneal dialysis catheter exit site is clean. Musculoskeletal: No clubbing or cyanosis. Pulses are 2+. ENDOSCOPY TECH: No focal deficit. Power is 5/5 in all extremities. Skin: No rashes or ulcers. LAB REVIEW: CBC showed WBC 6.3, hemoglobin 8.4, platelets of 217. Peritoneal fluid: Total WBC count is 24,125 and 94% of them were polymorphonuclear and it was cloudy in appearance. BMP showed sodium 139, potassium 3.6, chloride 102, bicarb 29, BUN 49, creatinine is 8.6, calcium 8.1, phosphorus is 2.2, albumin 1.9. Microbiology: All the cultures are negative so far. IMAGING: A repeat abdominal x-ray was done today morning which did not appreciate any pathology. However, a CAT scan done earlier this week already confirmed the patient has acute diverticulitis in the sigmoid colon. CURRENT INPATIENT MEDICATIONS: The patient's medications were all reviewed by myself. Intravenous (IV) Venofer was stopped because of active peritonitis. His meropenem has been changed to 1 gram IV every 24, and another dose will be given in the afternoon today. He continues to be on calcitriol. Because of the low phosphorus levels, I have stopped his PhosLo. The patient was on oral ciprofloxacin and Flagyl which I have stopped because he is on meropenem at this time which adequately covers for diverticulitis. He is on losartan 50 mg by mouth daily. I have started him on Zofran as needed. He continues to be on Lopressor 50 mg by mouth twice a day, and he has been started on morphine 2 mg IV every 4-hour moderate pain. Velphoro was already stopped yesterday. ASSESSMENT/PLAN: 1. Acute peritonitis. The patient most likely has peritonitis associated with sigmoid diverticulitis. Peritoneal fluid cell count is worsening. Antibiotics have been changed to intravenous (IV) meropenem. He was already given 2 grams of intraperitoneal vancomycin yesterday as well. All the cultures are negative so far. 2. Acute diverticulitis in sigmoid colon. The patient had severe pain again today morning. He has been started on morphine and Zofran as needed. Phosphorus binders have been stopped. Primary team has called surgical service on board as well because of possible microperforations in the sigmoid which is causing worsening of the peritonitis. 3. End-stage renal disease. The patient is peritoneal dialysis dependent. He continues to be on five manual exchanges all 1.5% or 1.5 liters. If the patient fails antibiotic treatment after 5 days of antibiotic, we might have to take the catheter out and he might need surgical exploration of the sigmoid colon. 4. Iron-deficiency anemia. The patient was given one dose of IV Venofer but because of worsening peritonitis, IV iron has been stopped. 5. Secondary hyperparathyroidism. Continue current dose of calcitriol daily. 6. Chronic kidney disease mineral bone disease. Because of the patient's pain and decreased oral intake, his phosphorus level is low. PhosLo and Velphoro have been stopped now. 7. Cardiomyopathy. The patient is listed for heart transplant as well. Volume status is optimal. Continue current dose of metoprolol and losartan. He has history of VSD repair as a child. 8. Disposition. The patient is not stable for discharge at this time.
[2020-02-16] MEDS ORDERED: FLUCONAZOLE 200 MG in IV 1 EA IV ONE (18:00)
[2020-02-16] MEDS: LOSARTAN 50MG TABLET PO SCH (21:58)
[2020-02-17 02:00] VITALS: BP 132/84
[2020-02-17 06:00] VITALS: BP 129/81
--- NOTE | 2020-02-17 06:29 | CR.PDOC ---
General Surgery Consultation Date of Consultation 02/16/20 History and Physical CONSULT REPORT FOR: hospitalist service REASON FOR CONSULTATION: diverticulitis, peritonitis HISTORY OF PRESENT ILLNESS: Patient is a 49 M with ESRD on peritoneal dialysis as well as with congenital heard disease, awaiting combined heart and kidney transplant admitted to the hospital on February 13, 2020 for left lower abdominal pain that started 3 days prior to admission and got worse. He denies any prior episode of diverticulitis. He has had a prior colonoscopy roughly 4 years ago for right side abdominal pain which according to the patient did not reveal anything. On evaluation in the ED he was found to have diverticulitis with a couple of bubbles of free air in the mesentery of the involved sigmoid colon but no free perforation. Patient tells me at that time also was having some problems with his peritoneal dialysis where he is retaining some dialysate more than normal though the dialysate remained clear. In the hospital he was started on IV antibiotics and seems to be progressing well. He was placed on an oral diet and he was tolerating this. At about 3 am today, he had worsening of his abdominal pain which she described to me as similar to an even worse than his initial presentation. This was generalized in nature. Also after that his dialysate was noted to be cloudy in appearance and this was sent for analysis and he had increasing WBC count from the the [place] site. Microbiology is pending. He was evaluated with a repeat CT of the abdomen and pelvis. He received IV pain medication and the pain seems to be fairly well controlled though not fully resolved at this point. He still reports some discomfort along the lower abdomen. He has been afebrile I was then asked to evaluate the patient with regards to the diverticulitis.. ESRD was on HD for 6-9 months via permacath but has been on PD for about 1.5 years. Chronic systolic/diastolic CHF Pulmonary hypertension Chronic hypertension GERD VSD repair at 3 or 4 years of age SOCIAL HISTORY: He doesn't smoke FAMILY HISTORY: One of his cousins has CKD and received a kidney donor from a sibling ALLERGIES: Please see below. HOME MEDICATIONS: Please see below. 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 His symptoms about 5 days in duration. Denies any abnormal weight loss, fevers or chills. HEENT: Denies blurred vision and double vision. Denies ear symptoms. Denies hoarseness. NECK: Denies any neck pain]. CARDIOVASCULAR: Denies chest pain and palpitations. MUSCULOSKELETAL: Denies arthralgias, back pain and thrombophlebitis. SKIN: Denies rash. NEUROLOGIC: Denies headache, stroke and transient ischemic attack. PSYCHIATRIC: Denies anxiety and depression. ENDOCRINE: Denies thyroid disease. HEMATOLOGY/ONCOLOGY: Denies bleeding or clotting disorder. HEART: Denies any chest pains, palpitations, paroxysmal dyspnea, orthopnea. PULMONARY: Denies chronic cough, dyspnea and wheezing. GASTROINTESTINAL: See HPI. GENITOURINARY: Patient on dialysis.. ENDOCRINE: No history of diabetes. INFECTIOUS: Denies any recent upper respiratory tract infection, UTI, need for use of antibiotics. NUTRITION: Reports fair appetite. Able to tolerate diet here in the hospital. PHYSICAL EXAMINATION: VITALS SIGNS: Please see below. GENERAL APPEARANCE: Patient seen laying in bed, awake alert and oriented minimally uncomfortable only with movements. SKIN: Warm and dry. HEENT: Normocephalic, atraumatic. [place] palpebral conjunctiva, anicteric sclerae. Lips and mucosa appear moist. NECK: Supple, no thyromegaly. No obvious jugular venous distention. LUNGS: Clear to auscultation bilaterally. No wheezing appreciated. HEART: No chest wall abnormalities. Regular rate and rhythm with no murmurs appreciated. ABDOMEN: Abdomen is prominent a rounded but this does not appear to be distended, dull on palpation. He has a PD catheter. No umbilical or groin or incisional herniation. He is mildly tender on palpation over the suprapubic and left lower quadrant area without any significant guarding EXTREMITIES: Minimal extremity edema ANCILLARIES: . LABORATORY DATA: Please see below. IMAGING STUDIES: . He had a CT of the abdomen and pelvis done 02/13/2020 which was repeated 02/15/2020. Abdominal x-ray done 02/16/2020. IMPRESSION AND PLAN: Acute diverticulitis without abscess or free perforation End-stage renal disease on peritoneal dialysis So he has 2 main issues ongoing at this time. Versus the acute diverticulitis which on presentation as well as on CT imaging seems to be fairly uncomplicated. There is no secondary complications of abscess, bowel obstruction, bleeding or free perforation. He does have a few bubbles of air that is seen on both CT scans which is located at the mesentery of the involved colon. He has sig nificant inflammation at the area. This is typically treated with a short period of bowel rest as well as IV antibiotics later switched to oral antibiotics. He has had a prior colonoscopy according to him about 4 or 5 years ago. This is usually treated with a short period of bowel rest making him nothing by mouth until there is significant reduction of pain though he has been advanced to regular diet for the past day or so and he seems to have tolerated this so I would just keep him on a soft low residue diet until all symptoms resolved. As long as this does not progress to full perforation and the probably don't need urgent surgical intervention. Surgery is indicated for nonresolution of sy mptoms, progression of symptoms or complications related to the diverticulitis. If the pain does not resolve within the next couple of days patient follow-up with another CT to look for any abscess formation. The second issues with regards to the cloudy drainage from the PD catheter. Since we know that there is some inflammatory state within the abdomen, the drainage of inflammatory fluid from the PD catheter is most likely secondary to this and is not infectious in nature and probably does not mean an infected PD catheter. I would anticipate there would be no growth in the microbiology of the dialysate was sent. His antibiotic coverage has been brought in by the primary service to meropenem. He probably is advantage that we have a PD catheter to monitor whether there is a progression of the diverticulitis or free perforation but short of that I couldn't find anything in the literature whether it is helpful or harmful doing peritoneal dialysis on there is an inflammatory state on the abdomen a probably would not be hurting him to continue PD dialysis. I will follow the course of the patient but it seems like he probably would not need any urgent or emergent surgical intervention on the stress progression of the diverticulitis. Vital Signs Vital Signs Date Time Temp Pulse Resp B/P (MAP) Pulse Ox O2 Delivery O2 Flow Rate FiO2 02/16/20 15:03 18 Room Air 02/16/20 14:00 98.1 92 110/65 (80) 100 I&Os I&O- Last 24 Hours up to 6 AM 02/16/20 06:00 Intake Total 6710 ml Output Total 6200 ml Balance 510 ml Laboratory Data Labs 24H Laboratory Tests 2 02/16/20 06:28: Body Fluid Source PERITONEAL DIALYSATE, Body Fluid WBC (Auto) 60236T, Body Fluid RBC (Auto) < 2, Body Fluid Mononuclear Cells % Auto 6.0H, Fluid Polymorphonuclear Cell % Auto 94.0H, Peritoneal Fluid Color PALE YELLOW, Peritoneal Fluid Appearance CLOUDY 02/16/20 07:44: Immature Granulocyte % (Auto) 1.1, Neutrophils (%) (Auto) 84.2H, Lymphocytes (%) (Auto) 7.3L, Monocytes (%) (Auto) 6.5H, Eosinophils (%) (Auto) 0.6, Basophils (%) (Auto) 0.3, Neutrophils # (Auto) 5.3, Lymphocytes # (Auto) 0.5L, Monocytes # (Auto) 0.4, Eosinophils # (Auto) 0.0, Basophils # (Auto) 0.0, Nucleated Red Blood Cells % (auto) 0.3H, Anion Gap 8, Glomerular Filtration Rate 7.0L, Calcium Level 8.1L, Phosphorus Level 2.2#L, Albumin 1.9L CBC/BMP Laboratory Tests 02/16/20 07:44 Microbiology Microbiology 02/16/20 Gram Stain - Final, Resulted 02/16/20 Body Fluid Culture, Resulted Pending 02/14/20 Acid Fast Stain, Received Pending 02/14/20 Mycobacterial Culture, Received Pending 02/14/20 Fungal Smear, Received Pending 02/14/20 Fungal Culture, Received Pending 02/14/20 Gram Stain - Final, Complete 02/14/20 Body Fluid Culture - Final, Complete 02/13/20 Blood Culture - Preliminary, Resulted No Growth after 72 hours. All specime... 02/13/20 Blood Culture - Preliminary, Resulted No Growth after 72 hours. All specime... 02/13/20 Blood Culture - Preliminary, Resulted No Growth after 72 hours. All specime... Home Medications Scheduled Calcitriol (Calcitriol) 0.25 Mcg Capsule, 0.25 MCG PO DAILY, (Reported) Calcium Acetate (Calcium Acetate) 667 Mg Capsule, 667 MG PO WM, (Reported) Ciprofloxacin HCl (Cipro) 250 Mg Tablet, 250 MG PO BID Ergocalciferol (Vitamin D2) (Vitamin D2) 50,000 Units Cap, 50,000 UNITS PO QWEEK, (Reported) TAKES ON SUNDAYS Evolocumab (Repatha Sureclick) 140 Mg/1 Ml Pen.injctr, 1 ML IM Q2WK, (Reported) Losartan Potassium (Losartan Potassium) 50 Mg Tablet, 50 MG PO QPM, (Reported) Metoprolol Tartrate (Metoprolol Tartrate) 50 Mg Tablet, 50 MG PO BID, (Reported) Metronidazole (Flagyl) 500 Mg Tablet, 500 MG PO Q8H FOR 10 DAYS Omeprazole (Omeprazole) 40 Mg Cap, 40 MG PO BID, (Reported) Sucroferric Oxyhydroxide (Velphoro) 500 Mg Tab.chew, 500 MG PO WM, (Reported) Ubidecarenone (Co Q-10) 200 Mg Capsule, 200 MG PO DAILY, (Reported) Vit B Comp No.3/Folic/C/Biotin (Shila-Galdino Rx Tablet) 1 Each Tablet, 1 TAB PO DAILY, (Reported) Scheduled PRN Hydroxyzine HCl (Hydroxyzine HCl) 25 Mg Tablet, 25 MG PO BIDP PRN for ITCHING, ( Reported) Allergies Coded Allergies: No Known Allergies (Unverified , 04/18/17) SAADIA SIMPSON MD Feb 16, 2020 17:39
[2020-02-17 06:30] LABS: BASO % 0.3 % (0.0-1.0); EOS # 0.1 10^3/uL (0.0-0.5); EOS % 1.6 % (0.0-3.0); HEMATOCRIT 24.9 % (42.0-52.0); LYMPH # 1.2 10^3/uL (1.5-5.0); LYMPH % 19.5 % (24.0-44.0); MEAN CORPUSCULAR HEMOGLOBIN 30.9 pg (27.0-33.0); MEAN CORPUSCULAR HGB CONC 32.1 g/dl (32.0-36.5); MEAN CORPUSCULAR VOLUME 96.1 fl (80.0-96.0); MONO # 0.5 10^3/uL (0.0-0.8); MONO % 8.2 % (0.0-5.0); NEUTROPHILS # 4.4 10^3/uL (1.5-8.5); PLATELET COUNT, AUTOMATED 198 10^3/uL (150-450); RED BLOOD COUNT 2.59 10^6/uL (4.30-6.10); WHITE BLOOD COUNT 6.4 10^3/uL (4.0-10.0)
[2020-02-17 07:05] LABS: ALBUMIN 1.9 GM/DL (3.2-5.2); CALCIUM LEVEL 7.9 MG/DL (8.5-10.1); CREATININE FOR GFR 8.41 MG/DL (0.70-1.30); GLOMERULAR FILTRATION RATE 7.2 (>60); PHOSPHORUS LEVEL 3.7 MG/DL (2.5-4.9); POTASSIUM SERUM 3.6 MEQ/L (3.5-5.1)
[2020-02-17 07:35] LABS: PERITONEAL DIALYSATE FL COLOR PALE YELLOW (COLORLESS); SOURCE, BODY FLUID PERITONEAL DIALYSATE
[2020-02-17 07:36] LABS: APPEARANCE, BODY FLUID HAZY (CLEAR)
[2020-02-17 08:13] LABS: VANCOMYCIN RANDOM 20.9 UG/ML
[2020-02-17] MEDS: OMEPRAZOLE 20 MG CAP PO SCH (08:29)
[2020-02-17] MEDS: HEPARIN SOD (PORCINE) 5000UNITS/ML 1ML VIAL/SYRINGE SC SCH (08:29)
[2020-02-17] MEDS: CALCITRIOL 0.25 MCG CAP (S0169) PO SCH (08:29)
[2020-02-17] MEDS: METOPROLOL TART 50 MG TAB PO SCH (08:29)
[2020-02-17 10:00] VITALS: BP 124/82
--- NOTE | 2020-02-17 12:18 | IPNPDOC ---
Text Note Date of Service The patient was seen on 02/17/20. NOTE Patient seen this morning. He reports he is mildly better. He still has some leftover discomfort over the lower abdomen especially when draining his dialysate. He reports that the dialysate is still cloudy, yellowish in appearance but no fibrin. He has been afebrile the past 24 hours and so far is tolerating soft diet VS:. MAXIMUM TEMPERATURE and CURRENT TEMPERATURE is 99.8 Non-tachycardic Examination: Patient looks relatively comfortable laying flat in the bed. Awake alert and oriented. Skin is warm and dry No jugular venous distention Lung sounds are clear to auscultation bilaterally without wheezing Heart rate and rhythm are regular without murmurs Abdomen is moderately protuberant rounded cone and tympanitic to percussion. Mild discomfort on deep palpation on right and left lower quadrant area but mainly centered at the suprapubic area without guarding His labs were reviewed WBC 6.4 Impression and plan Acute diverticulitis, uncomplicated End-stage renal disease on Peritoneal dialysis From the point of view of diverticulitis he seems stable and he seems to be tolerating soft diet. Never he is ready to be converted to oral antibiotics he can be converted with coverage of gram-negative and anaerobes for 2 week course. His last colonoscopy was 5 years ago. Suggest repeating this intermittently. Once all his symptoms have resolved he should be in a high-fiber diet and possibly take Metamucil as fiber supplements. This is his first bout of divertic ulitis and foremost epidemiologic studies he has about less than 20% chance of recurrence. Most of the time the worse attacks In the first 2 or 3 attacks. Right now does not need any emergent surgical intervention. The peritoneal dialysis continues to work but continues to have some inflammatory leakage from the acute diverticulitis. Theoretically this should be sterile and probably will not have any growth. There is some mild increased chance of translocation of bacteria. He is getting antibiotics through the dialysis catheter as well as IV. I will leave the decision on the antibiotics to the medical service. VS,[place], I+O VS, Fishbone, I+O Laboratory Tests 02/17/20 05:52 Vital Signs Date Time Temp Pulse Resp B/P (MAP) Pulse Ox O2 Delivery O2 Flow Rate FiO2 02/17/20 10:00 99.8 85 16 124/82 (96) 99 Room Air I&O- Last 24 Hours up to 6 AM 02/17/20 05:59 Intake Total 8460 ml Output Total 6950 ml Balance 1510 ml SAADIA SIMPSON MD Feb 17, 2020 12:18
[2020-02-17] MEDS: MEROPENEM INJ 1 GM in IV 1 EA IV SCH (12:56)
[2020-02-17 14:00] VITALS: BP 125/81
--- NOTE | 2020-02-17 16:05 | IPNPDOC ---
Date Seen The patient was seen on 02/17/20. Progress Note SUBJECTIVE: Continued abdominal discomfort. Peritoneal fluid WBC decreased to 12K. Added fluconazole after discussion with ID. No surgical indication at this time per surgery. Patient denies chest pain, increased shortness of breath, fevers, chills, nausea or vomiting. OBJECTIVE: VITAL SIGNS: Please see below PHYSICAL EXAMINATION: CONSTITUTIONAL: No acute distress, resting comfortably, AAO x 3 EYES: PERRLA, EOM intact HENT, MOUTH: Normocephalic, atraumatic, moist mucous membranes NECK: SUPPLE, no JVD, no lymphadenopathy, no carotid bruit CV: Regular rate and rhythm, S1S2 normal, no murmurs/rubs/gallops RESPIRATORY: Clear to auscultation bilaterally, no rales/rhonchi/wheezes GI: Distended abdomen, tender to palpation of bilateral lower quadrants, BS positive in 4 quadrants, no rebound or guarding, no organomegaly, multiple well healed scars on abdomen, peritoneal dialysis catheter in place : Deferred MUSCULOSKELETAL: Normal ROM. No cyanosis, clubbing, swelling, joint deformity, extremity edema INTEGUMENTARY: Intact, no rashes, no lesions, no erythema NEUROLOGIC: Cranial Nerves II-XII are intact, no focal deficits PSYCHIATRIC: Mood and affect are normal CURRENT MEDICATIONS: Please see below LABORATORY DATA: Please see below Microbiology: BCx x 2 sets: NG at 72 hrs Peritoneal fluid GS and Cx 02/15/20: Few WBC, no organisms. Cx pending. Peritoneal fluid GS and Cx 02/16/20: Many WBC, no organisms. Cx pending. Fungal cultures pending IMAGING: No new imaging. ASSESSMENT: 49 y/o M treated for diverticulitis with suspicion for microperforation, spontaneous bacterial peritonitis. PLAN: 1. Acute bacterial peritonitis likely 2/2 to peritoneal dialysis vs. microperforation due to diverticulitis. No surgical indication at this time. Continue to treat with fluconzaole 100 mg IV daily, Meropenem. F/u all cultures above, peritoneal fluid studies, serum CBC. Nephrology does not wish to take peritoneal catheter out at this time, following closely. 2. Acute diverticulitis with possible microperforation. C/w IV abx, no surgical indication. F/u daily labs. Surgery has seen patient. 3. End-stage renal disease, peritoneal dialysis depended. C/w current schedule, not removing catheter at this time. Nephrology following. 4. Secondary hyperparathyroidism. C/w calcitriol 0.25 mcg by mouth daily. 5. Chronic systolic and diastolic heart failure. Not currently in exacerbation. C/w BB, ARB, 6. HTN. Stable. C/w metoprolol and losartan. 7. Anemia likely 2/2 to chronic disease and iron deficiency. C/w venofer IV. 8. 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 He is listed for kidney and heart transplant. C/w metoprolol and losartan. 9. DVT px. Heparin. DISPOSITION: Currently inpatient status. Plan is discharge home when medically improved. VS, I&O, 24H, Fishbone Vital Signs/I&O Vital Signs Date Time Temp Pulse Resp B/P (MAP) Pulse Ox O2 Delivery O2 Flow Rate FiO2 02/17/20 14:00 99.3 87 16 125/81 (96) 97 Room Air I&O- Last 24 Hours up to 6 AM 02/17/20 06:00 Intake Total 8460 ml Output Total 6950 ml Balance 1510 ml Laboratory Data 24H LABS Laboratory Tests 2 02/17/20 05:52: Immature Granulocyte % (Auto) 1.4, Neutrophils (%) (Auto) 69.0H, Lymphocytes (%) (Auto) 19.5L, Monocytes (%) (Auto) 8.2H, Eosinophils (%) (Auto) 1.6, Basophils (%) (Auto) 0.3, Neutrophils # (Auto) 4.4, Lymphocytes # (Auto) 1.2L, Monocytes # (Auto) 0.5, Eosinophils # (Auto) 0.1, Basophils # (Auto) 0.0, Nucleated Red Blood Cells % (auto) 0.0, Anion Gap 5L, Glomerular Filtration Rate 7.2L, Calcium Level 7.9L, Phosphorus Level 3.7#, Albumin 1.9L, Random Vancomycin Level 20.9 02/17/20 06:51: Body Fluid Source PERITONEAL DIALYSATE, Body Fluid WBC (Auto) 59717C, Body Fluid RBC (Auto) < 2, Body Fluid Mononuclear Cells % Auto 8.6H, Fluid Polymorphonuclear Cell % Auto 91.4H, Peritoneal Fluid Color PALE YELLOW, Peritoneal Fluid Appearance HAZY CBC/BMP Laboratory Tests 02/17/20 05:52 Microbiology Microbiology 02/16/20 Gram Stain - Final, Resulted 02/16/20 Body Fluid Culture, Resulted Pending 02/15/20 Gram Stain - Final, Resulted 02/15/20 Body Fluid Culture, Resulted Pending 02/14/20 Acid Fast Stain, Received Pending 02/14/20 Mycobacterial Culture, Received Pending 02/14/20 Fungal Smear, Received Pending 02/14/20 Fungal Culture, Received Pending 02/14/20 Gram Stain - Final, Complete 02/14/20 Body Fluid Culture - Final, Complete 02/13/20 Blood Culture - Preliminary, Resulted No Growth after 72 hours. All specime... 02/13/20 Blood Culture - Preliminary, Resulted No Growth after 72 hours. All specime... 02/13/20 Blood Culture - Preliminary, Resulted No Growth after 72 hours. All specime... Current Medications Current Medications Medications (Trade) Dose Ordered Sig/Marko Route PRN Reason Start Time Stop Time Status Last Admin Dose Admin Acetaminophen (Tylenol Tab) 650 mg Q4H PRN PO PAIN OR FEVER 02/13/20 15:15 02/15/20 14:46 Calcitriol (Rocaltrol) 0.25 mcg DAILY PO 02/14/20 09:00 02/17/20 08:29 Calcium Acetate (Phoslo) 667 mg WM PO 02/13/20 18:00 02/16/20 10:39 DC 02/15/20 18:21 Ciprofloxacin (Cipro) 250 mg BID PO 02/15/20 12:00 02/15/20 14:24 DC 02/15/20 12:34 Ciprofloxacin (Cipro) 250 mg BID@06,18 PO 02/15/20 18:00 02/16/20 07:38 DC 02/16/20 06:10 Ciprofloxacin (Cipro) 500 mg DAILY@06 PO 02/15/20 12:00 02/15/20 11:28 DC Diatrizoate Meglum/ Diatrizoate Sod (Gastrografin) 10 ml Q30M PO 02/14/20 12:45 02/14/20 13:16 DC 02/14/20 13:15 Fluconazole 100 mg/IV Miscellaneous Supplies 50 ml @ 50 mls/hr Q24H IV 02/17/20 18:00 Heparin Sodium (Porcine) (Heparin) 5,000 units Q12H SC 02/13/20 21:00 02/17/20 08:29 Home Med (Med Rec Complete!) ASDIRECTED XX 02/13/20 15:45 02/13/20 15:58 DC Hydroxyzine HCl (Atarax) 25 mg BIDP PRN PO ITCHING 02/13/20 17:15 Iron 200 mg/ Sodium Chloride 110 ml @ 110 mls/hr DAILY IV 02/14/20 13:00 02/15/20 14:27 DC 02/15/20 09:29 Losartan Potassium (Cozaar) 50 mg QPM PO 02/13/20 21:00 02/16/20 21:58 Meropenem (Merrem) 1 gm Q24H XX 02/14/20 22:00 02/16/20 07:38 DC 02/15/20 22:15 Meropenem 1 gm/IV Miscellaneous Supplies 50 ml @ 100 mls/hr Q24H IV 02/14/20 16:00 02/13/20 18:41 DC Meropenem 1 gm/IV Miscellaneous Supplies 50 ml @ 100 mls/hr Q24H IV 02/16/20 12:00 02/17/20 12:56 Metoprolol Tartrate (Lopressor) 50 mg BID PO 02/13/20 21:00 02/17/20 08:29 Metronidazole (Flagyl) 500 mg Q8H PO 02/15/20 12:00 02/15/20 14:24 DC 02/15/20 12:34 Metronidazole (Flagyl) 500 mg Q8H PO 02/15/20 22:00 02/16/20 07:38 DC 02/16/20 06:10 Morphine Sulfate (Morphine Sulfate Inj) 2 mg Q4H PRN IV MODERATE PAIN (PS 5-7) 02/16/20 08:15 02/16/20 23:48 Omeprazole (PriLOSEC) 40 mg BID PO 02/13/20 21:00 02/17/20 08:29 Ondansetron HCl (ZOFRAN INJection) 4 mg Q6HP PRN IV NAUSEA OR VOMITING 02/16/20 10:45 Sucroferric Oxyhydroxide (Velphoro) 500 mg WM PO 02/13/20 18:00 02/15/20 14:27 DC 02/15/20 12:34 Vitamin D (Drisdol) 50,000 units Luis@0900 PO 02/14/20 09:00 02/14/20 08:52 Allergies Coded Allergies: No Known Allergies (Unverified , 04/18/17) Missy Ascencio MD Feb 17, 2020 16:05
--- NOTE | 2020-02-17 16:22 | IPN ---
DATE OF SERVICE: 02/17/2020 SUBJECTIVE: The patient was seen and examined at the bedside today morning. He reports mild persistent pain in the lower abdomen, but he reports it is better today as compared with yesterday. His peritoneal fluid cell count is also improved by about 50% since yesterday. The patient was also seen by surgical service. No surgical intervention was recommended. He has been switched to a liquid diet only because of persistent diverticulitis and peritonitis. He continues to be on IV antibiotics at this time. OBJECTIVE: Vital Signs: Temperature is 99.8 degrees Fahrenheit, blood pressure 124/82, pulse is 85, respiratory rate of 16, saturating 99% on room air. Intake/Output: Urine output recorded is 400 mL. Weight in the bed scale is 86.8 kg. The patient is not getting much ultrafiltration with peritoneal dialysis. He is actually retaining fluid. PHYSICAL EXAMINATION: General: The patient is awake, alert, oriented times three, laying in bed, in no apparent distress. Head/Neck Exam: Extraocular muscles intact. Pupils equally round and reactive to light. Mucous membranes are moist. Neck is supple. There is mildly elevated jugular venous distention (JVD). Cardiovascular: S1, S2, regular rate. No edema of the bilateral lower extremities. Respiratory: Chest is clear to auscultation bilaterally. Bilateral equal air entry. No rales or rhonchi. Abdomen: Soft, slightly tender to deep palpation in the abdomen, especially in the suprapubic region. Peritoneal dialysis catheter site is clean. Musculoskeletal: No clubbing or cyanosis. Pulses are 2+. Central Nervous System (SPLICING SUPERVISOR): No focal deficit apart from the patient being hard of hearing. LAB REVIEW: Complete blood count (CBC) showed WBC of 6.4, hemoglobin is 8, platelets of 198. Basic metabolic panel (BMP) showed sodium 138, potassium 3.6, chloride 102, bicarbonate 31, BUN 44, creatinine is 8.4, calcium 7.9, phosphorus is 3.7, albumin 1.9. MICROBIOLOGY: All the cultures are negative so far. CURRENT INPATIENT MEDICATIONS: The patient's medications were all reviewed by myself. The patient was started on fluconazole 200 mg initial dose and 100 mg IV daily. He continues to be on IV meropenem. Phosphorus binders were stopped yesterday. ASSESSMENT/PLAN: 1. Acute peritonitis. The patient is peritoneal dialysis dependent. He has a peritoneal dialysis catheter and he has acute diverticulitis as well. Cultures are negative so far. Cell count is better today as compared with yesterday. Continue IV meropenem, which covers peritonitis as well. He was given intraperitoneal vancomycin. Vancomycin levels are adequate at this time. 2. Acute diverticulitis of sigmoid colon. Continue the liquid diet only. Continue IV meropenem. Pain optimization with morphine. Symptomatically, he is slightly better today as compared with yesterday. He was evaluated by surgical service as well. 3. End-stage renal disease. The patient is peritoneal dialysis dependent. He is retaining fluid with 1.5% exchanges. I have changed his dialysis regimen to five manual exchanges all 1.5 liters, all 2.5%. 4. Iron deficiency anemia. The patient got one dose of IV Venofer, but further doses were stopped because of acute peritonitis. IV iron will be given once acute infection gets better. If hemoglobin drops below 80, he will be given blood transfusion. 5. Secondary hyperparathyroidism. Continue calcitriol. 6. Chronic kidney disease, mineral bone disease. The patient's phosphorus levels were low. All the phosphorus binders are on hold. 7. Cardiomyopathy. The patient is listed for heart transplant. Continue current dose of metoprolol and losartan. Volume status will be optimized with peritoneal dialysis.
[2020-02-17] MEDS: FLUCONAZOLE 100 MG in IV 1 EA IV SCH (18:46)
[2020-02-17 22:00] VITALS: BP_SYST 120; BP_SYST 142; BP_DIAS 60; BP_DIAS 78
[2020-02-17] MEDS ORDERED: HEPARIN SOD (PORCINE) 5000UNITS/ML 1ML VIAL/SYRINGE PD ONE (22:00)
[2020-02-18] MEDS: HEPARIN SOD (PORCINE) 5000UNITS/ML 1ML VIAL/SYRINGE SC SCH ×3 (00:09→20:47)
[2020-02-18] MEDS: OMEPRAZOLE 20 MG CAP PO SCH ×3 (00:10→20:46)
[2020-02-18] MEDS: METOPROLOL TART 50 MG TAB PO SCH ×3 (00:12→20:47)
[2020-02-18] MEDS: LOSARTAN 50MG TABLET PO SCH ×2 (00:12→20:47)
[2020-02-18 02:00] VITALS: BP 117/69
[2020-02-18 06:00] VITALS: BP 123/78
[2020-02-18 06:41] LABS: BASO % 0.3 % (0.0-1.0); EOS # 0.2 10^3/uL (0.0-0.5); EOS % 2.7 % (0.0-3.0); HEMATOCRIT 24.6 % (42.0-52.0); HEMOGLOBIN 7.9 g/dl (13.5-17.5); LYMPH # 1.3 10^3/uL (1.5-5.0); LYMPH % 18.5 % (24.0-44.0); MEAN CORPUSCULAR HEMOGLOBIN 30.9 pg (27.0-33.0); MEAN CORPUSCULAR HGB CONC 32.1 g/dl (32.0-36.5); MEAN CORPUSCULAR VOLUME 96.1 fl (80.0-96.0); MONO # 0.6 10^3/uL (0.0-0.8); NEUTROPHILS # 4.8 10^3/uL (1.5-8.5); NEUTROPHILS % 67.4 % (36.0-66.0); PLATELET COUNT, AUTOMATED 214 10^3/uL (150-450); RED BLOOD COUNT 2.56 10^6/uL (4.30-6.10); WHITE BLOOD COUNT 7.2 10^3/uL (4.0-10.0)
[2020-02-18 07:23] LABS: ALBUMIN 1.8 GM/DL (3.2-5.2); CREATININE FOR GFR 8.17 MG/DL (0.70-1.30); GLOMERULAR FILTRATION RATE 7.5 (>60); PHOSPHORUS LEVEL 3.6 MG/DL (2.5-4.9); POTASSIUM SERUM 3.2 MEQ/L (3.5-5.1)
[2020-02-18 09:00] LABS: APPEARANCE, BODY FLUID HAZY (CLEAR); PERITONEAL DIALYSATE FL COLOR PALE YELLOW (COLORLESS); SOURCE, BODY FLUID PERITONEAL DIALYSATE
[2020-02-18] MEDS ORDERED: POTASSIUM CHLORIDE 10 MEQ SR TABLET PO ONE ×2 (09:00→09:15)
[2020-02-18] MEDS ORDERED: DARBEPOETIN 200MCG/0.4ML *NON-DIALYSIS* SYRINGE (J0881 PER 1MCG) SC SCH (09:00)
[2020-02-18] MEDS: CALCITRIOL 0.25 MCG CAP (S0169) PO SCH (10:19)
[2020-02-18] MEDS ORDERED: FUROSEMIDE 40MG/4ML VIAL (J1940) IV ONE (11:00)
[2020-02-18] MEDS: ACETAMINOPHEN TAB 650MG DOSE (2X325MG) PO PRN ×2 (11:12→20:49)
--- NOTE | 2020-02-18 11:12 | IPNPDOC ---
Text Note Date of Service The patient was seen on 02/18/20. NOTE The patient was seen on 02/17/20. Patient continues to have slow gradual improvement of his discomfort at the infraumbilical/suprapubic area. Otherwise he has been stable the past 48 hrs I have been following him. He is tolerating clear liquids. No bowel movements recorded for the past 2 days. VS:. MAXIMUM TEMPERATURE 99 Non-tachycardic Examination: Patient looks comfortable now sitting up on the bed. I came upon him while he was draining his peritoneal dialysate and this looks to be draining light straw- colored fluid without any fibrin or other exudates. 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 Awake alert and oriented. Skin is warm and dry Abdomen is moderately protuberant rounded. Minimal residual tenderness over the infraumbilical/suprapubic area. The tenderness over the right lower quadrant and left lower quadrant area seems to have improved markedly His labs were reviewed WBC 7.2 Impression and plan Acute diverticulitis, uncomplicated End-stage renal disease on Peritoneal dialysis I will advance his diet to soft foods and he should probably maintain this type of diet up until he is a lot more comfortable and then he should be on a high- fiber diet with Metamucil supplementation of his fiber intake. I would recommend an interval colonoscopy at about 3 months time to evaluate degree of diverticulosis and rule out other entities that might have caused the sigmoid colon inflammation. I would follow him up only intermittently at this point.. VS,Fishbone, I+O VS, Fishbone, I+O Laboratory Tests 02/18/20 06:22 Vital Signs Date Time Temp Pulse Resp B/P (MAP) Pulse Ox O2 Delivery O2 Flow Rate FiO2 02/18/20 10:19 82 122/80 02/18/20 06:00 98.8 17 99 Room Air I&O- Last 24 Hours up to 6 AM 02/18/20 05:59 Intake Total 8380 ml Output Total 7925 ml Balance 455 ml SAADIA SIMPSON MD Feb 18, 2020 11:12
[2020-02-18] MEDS: MEROPENEM INJ 1 GM in IV 1 EA IV SCH (11:29)
[2020-02-18] MEDS: MORPHINE 2 MG/ML 1ML VIAL (J2270) IV PRN (12:58)
[2020-02-18 14:00] VITALS: BP 123/78
--- NOTE | 2020-02-18 17:24 | IPN ---
DATE: 02/18/2020 SUBJECTIVE: The patient was seen and examined at the bedside today morning. He is afebrile. He reports that his abdominal pain is getting better. He still reports pain at the umbilical hernia site. His peritoneal fluid cell count continues to improve. He continues to be on IV antibiotics. His peritoneal dialysate concentration was changed yesterday, but despite that he is not getting much ultrafiltration done and he is slowly gaining weight. OBJECTIVE: Vital signs: Temperature is 98.8 degrees Fahrenheit, blood pressure 123/78, pulse is 77, respiratory of 17, saturating 99% on room air. Intake and output: Urine output recorded is 1.2 liters yesterday, 700 mL so far today since overnight . Weight in the bed scale is not available. PHYSICAL EXAMINATION: General: The patient is awake, alert, oriented x3, laying in bed in no apparent distress. Head and neck exam: Extraocular muscles intact. Pupils equally round and reactive to light. Mucous membranes are moist. Neck is supple. There is moderately elevated jugular venous distension (JVD). Cardiovascular: Sinus to regular rate. No edema of the bilateral lower extremities. Respiratory: Mildly decreased breath sounds at the bases, otherwise no active rales or rhonchi. Abdomen is slightly distended. He has a peritoneal fluid at this time. He has an umbilical hernia which is tender to touch and he does have a moderate amount of tenderness to deep palpation in the suprapubic region as well. Peritoneal dialysis catheter in left upper quadrant has no signs of exit site infection. Musculoskeletal: No clubbing or cyanosis. Pulses are 2+. HOUSEKEEPER CHILD CARE: No focal deficit, power is 5/5 in all extremities. LABORATORY RIEW: Complete blood count (CBC) showed WBC 7.2, hemoglobin 7.9, platelets of 214. Peritoneal fluid cell count came back as 2467 with 79% of polymorphonuclear. Beats per minute done today morning showed sodium 138, potassium given to chloride 103, bicarb 29, BUN 40, creatinine is 8.1, calcium is 8, phosphorus 3.6, albumin is 1.8. Microbiology: Peritoneal fluid cultures are negative so far. CURRENT INPATIENT MEDICATIONS: The patient's medications were all reviewed by myself. He continues to be on IV fluconazole and IV meropenem. I have ordered one dose of Lasix 40 mg IV today and I have also started the patient on Aranesp 200 mcg subcu once a week and the patient was also given potassium chloride 40 mEq by mouth x1 dose today. ASSESSMENT/PLAN: 1. Acute peritonitis. The patient is getting IV meropenem. He is also getting intermittent dosages of vancomycin and he was also started on IV fluconazole. Peritoneal fluid cell count is better. Continue the current regimen at this time. 2. Acute diverticulitis of the sigmoid colon. The patient is tolerating a liquid diet. He was seen by surgery. They are advancing the diet to soft diet. He continues to be on IV meropenem. Symptomatically, he is getting better. 3. End-stage renal disease. The patient is currently getting five manual exchanges all 1.5 liters or 2.5%, but he feels very bloated with that volume. So I change the peritoneal exchange volume to 1.3 liters now. 4. Cardiomyopathy. The patient is retaining much of the fluid; and because of risk of congestive heart failure, I have given him a dose of Lasix 40 mg IV today. 5. Hypokalemia. The patient was given a dose of potassium chloride 40 mEq by mouth x1 dose today. 6. Anemia secondary to end-stage renal disease and iron deficiency. Because of acute infection, I am not giving him IV iron at this time. However, started the patient on Aranesp 200 mcg subcutaneous once a week. 7. Chronic kidney disease, mineral bone disease. Phosphorus binders on hold because of liquid diet and low phosphorus levels. When the phosphorus level goes up, binders will be restarted.
[2020-02-18 18:00] VITALS: BP 121/78
[2020-02-18] MEDS: FLUCONAZOLE 100 MG in IV 1 EA IV SCH (18:25)
--- NOTE | 2020-02-18 20:42 | IPNPDOC ---
Date Seen The patient was seen on 02/18/20. Progress Note SUBJECTIVE: Continued abdominal discomfort, more periumbilical today on exam. Peritoneal fluid WBC decreased further to 2467 from 12K, many cultures pending still. Patient denies chest pain, increased shortness of breath, fevers, chills, nausea or vomiting. OBJECTIVE: VITAL SIGNS: Please see below PHYSICAL EXAMINATION: CONSTITUTIONAL: No acute distress, resting comfortably, AAO x 3 EYES: PERRLA, EOM intact HENT, MOUTH: Normocephalic, atraumatic, moist mucous membranes NECK: SUPPLE, no JVD, no lymphadenopathy, no carotid bruit CV: Regular rate and rhythm, S1S2 normal, no murmurs/rubs/gallops RESPIRATORY: Clear to auscultation bilaterally, no rales/rhonchi/wheezes GI: Distended abdomen, tender to palpation of periumbilical area, BS positive in 4 quadrants, no rebound or guarding, no organomegaly, multiple well healed scars on abdomen, peritoneal dialysis catheter in place : Deferred MUSCULOSKELETAL: Normal ROM. No cyanosis, clubbing, swelling, joint deformity, extremity edema INTEGUMENTARY: Intact, no rashes, no lesions, no erythema NEUROLOGIC: Cranial Nerves II-XII are intact, no focal deficits PSYCHIATRIC: Mood and affect are normal CURRENT MEDICATIONS: Please see below LABORATORY DATA: Please see below Microbiology: BCx x 2 sets: NG at 72 hrs Peritoneal fluid GS and Cx 02/15/20: Few WBC, no organisms. Cx pending. Peritoneal fluid GS and Cx 02/16/20: Many WBC, no organisms. Cx NG Fungal cultures pending IMAGING: No new imaging. ASSESSMENT: 49 y/o M treated for acute diverticulitis, spontaneous bacterial peritonitis. PLAN: 1. Acute bacterial peritonitis likely 2/2 to peritoneal dialysis. No surgical indication at this time. Continue to treat with fluconazole 100 mg IV daily, Meropenem. F/u all cultures above, peritoneal fluid studies, serum CBC. Nephrology does not wish to take peritoneal catheter out at this time, following closely. 2. Acute diverticulitis. C/w IV abx, no surgical indication. F/u daily labs. Surgery has seen patient. Will need colonoscopy 3 months after resolution of acute episode. 3. End-stage renal disease, peritoneal dialysis depended. C/w current schedule, not removing catheter at this time. Nephrology following. 4. Secondary hyperparathyroidism. C/w calcitriol 0.25 mcg by mouth daily. 5. Chronic systolic and diastolic heart failure. Not currently in exacerbation. C/w BB, ARB, 6. Hypokalemia. KCL 40 mEq given today. F/u AM labs. 7. HTN. Stable. C/w metoprolol and losartan. 8. Anemia likely 2/2 to chronic disease and iron deficiency. Stopped IV venofer, giving Aranesp with dialysis. 9. 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 He is listed for kidney and heart transplant. C/w metoprolol and losartan. Given dose of lasix today. 10. DVT px. Heparin. DISPOSITION: Currently inpatient status. Plan is discharge home when medically improved. VS, I&O, 24H, [place] Vital Signs/I&O Vital Signs Date Time Temp Pulse Resp B/P (MAP) Pulse Ox O2 Delivery O2 Flow Rate FiO2 02/18/20 18:00 98.9 85 16 121/78 (92) 100 Room Air l I&O- Last 24 Hours up to 6 AM 02/18/20 06:00 Intake Total 8380 ml Output Total 7925 ml Balance 455 ml Laboratory Data 24H LABS Laboratory Tests 2 02/18/20 06:22: Immature Granulocyte % (Auto) 2.1, Neutrophils (%) (Auto) 67.4H, Lymphocytes (%) (Auto) 18.5L, Monocytes (%) (Auto) 9.0H, Eosinophils (%) (Auto) 2.7, Basophils (%) (Auto) 0.3, Neutrophils # (Auto) 4.8, Lymphocytes # (Auto) 1.3L, Monocytes # (Auto) 0.6, Eosinophils # (Auto) 0.2, Basophils # (Auto) 0.0, Nucleated Red Blood Cells % (auto) 0.0, Anion Gap 6L, Glomerular Filtration Rate 7.5L, Calcium Level 8.0L, Phosphorus Level 3.6, Albumin 1.8L 02/18/20 06:55: Body Fluid Source PERITONEAL DIALYSATE, Body Fluid WBC (Auto) 2467H, Body Fluid RBC (Auto) < 2, Body Fluid Mononuclear Cells % Auto 20.3H, Fluid Polymorphonuclear Cell % Auto 79.7H, Peritoneal Fluid Color PALE YELLOW, Peritoneal Fluid Appearance HAZY CBC/BMP Laboratory Tests 02/18/20 06:22 Microbiology Microbiology 02/16/20 Gram Stain - Final, Complete 02/16/20 Body Fluid Culture - Final, Complete 02/15/20 Gram Stain - Final, Resulted 02/15/20 Body Fluid Culture, Resulted Pending 02/14/20 Acid Fast Stain, Received Pending 02/14/20 Mycobacterial Culture, Received Pending 02/14/20 Fungal Smear, Received Pending 02/14/20 Fungal Culture, Received Pending 02/14/20 Gram Stain - Final, Complete 02/14/20 Body Fluid Culture - Final, Complete 02/13/20 Blood Culture - Final, Complete NO GROWTH AFTER 5 DAYS 02/13/20 Blood Culture - Final, Complete NO GROWTH AFTER 5 DAYS 02/13/20 Blood Culture - Final, Complete NO GROWTH AFTER 5 DAYS Current Medications Current Medications Medications (Trade) Dose Ordered Sig/Marko Route PRN Reason Start Time Stop Time Status Last Admin Dose Admin Acetaminophen (Tylenol Tab) 650 mg Q4H PRN PO PAIN OR FEVER 02/13/20 15:15 02/18/20 20:49 Calcitriol (Rocaltrol) 0.25 mcg DAILY PO 02/14/20 09:00 02/18/20 10:19 Calcium Acetate (Phoslo) 667 mg WM PO 02/13/20 18:00 02/16/20 10:39 DC 02/15/20 18:21 Ciprofloxacin (Cipro) 250 mg BID PO 02/15/20 12:00 02/15/20 14:24 DC 02/15/20 12:34 Ciprofloxacin (Cipro) 250 mg BID@,18 PO 02/15/20 18:00 02/16/20 07:38 DC 02/16/20 06:10 Ciprofloxacin (Cipro) 500 mg DAILY@06 PO 02/15/20 12:00 02/15/20 11:28 DC Darbepoetin Ac (Aranesp) 200 mcg Th@0900 SC 02/18/20 09:00 02/18/20 13:21 Diatrizoate Meglum/ Diatrizoate Sod (Gastrografin) 10 ml Q30M PO 02/14/20 12:45 02/14/20 13:16 DC 02/14/20 13:15 Fluconazole 100 mg/IV Miscellaneous Supplies 50 ml @ 50 mls/hr Q24H IV 02/17/20 18:00 02/18/20 18:25 Heparin Sodium (Porcine) (Heparin) 5,000 units Q12H SC 02/13/20 21:00 02/18/20 20:47 Home Med (Med Rec Complete!) ASDIRECTED XX 02/13/20 15:45 02/13/20 15:58 DC Hydroxyzine HCl (Atarax) 25 mg BIDP PRN PO ITCHING 02/13/20 17:15 Iron 200 mg/ Sodium Chloride 110 ml @ 110 mls/hr DAILY IV 02/14/20 13:00 02/15/20 14:27 DC 02/15/20 09:29 Losartan Potassium (Cozaar) 50 mg QPM PO 02/13/20 21:00 02/18/20 20:47 Meropenem (Merrem) 1 gm Q24H XX 02/14/20 22:00 02/16/20 07:38 DC 02/15/20 22:15 Meropenem 1 gm/IV Miscellaneous Supplies 50 ml @ 100 mls/hr Q24H IV 02/14/20 16:00 02/13/20 18:41 DC Meropenem 1 gm/IV Miscellaneous Supplies 50 ml @ 100 mls/hr Q24H IV 02/16/20 12:00 02/18/20 11:29 Metoprolol Tartrate (Lopressor) 50 mg BID PO 02/13/20 21:00 02/18/20 20:47 Metronidazole (Flagyl) 500 mg Q8H PO 02/15/20 12:00 02/15/20 14:24 DC 02/15/20 12:34 Metronidazole (Flagyl) 500 mg Q8H PO 02/15/20 22:00 02/16/20 07:38 DC 02/16/20 06:10 Morphine Sulfate (Morphine Sulfate Inj) 2 mg Q4H PRN IV MODERATE PAIN (PS 5-7) 02/16/20 08:15 02/18/20 12:58 Omeprazole (PriLOSEC) 40 mg BID PO 02/13/20 21:00 02/18/20 20:46 Ondansetron HCl (ZOFRAN INJection) 4 mg Q6HP PRN IV NAUSEA OR VOMITING 02/16/20 10:45 Sucroferric Oxyhydroxide (Velphoro) 500 mg WM PO 02/13/20 18:00 02/15/20 14:27 DC 02/15/20 12:34 Vitamin D (Drisdol) 50,000 units Luis@0900 PO 02/14/20 09:00 02/14/20 08:52 Allergies Coded Allergies: No Known Allergies (Unverified , 04/18/17) Missy Ascencio MD Feb 18, 2020 20:42
[2020-02-18 22:00] VITALS: BP 120/76
[2020-02-19 02:00] VITALS: BP 119/75
[2020-02-19 06:00] VITALS: BP 119/75
[2020-02-19 06:33] LABS: BASO % 0.3 % (0.0-1.0); EOS # 0.2 10^3/uL (0.0-0.5); EOS % 2.3 % (0.0-3.0); HEMATOCRIT 25.7 % (42.0-52.0); LYMPH # 1.3 10^3/uL (1.5-5.0); LYMPH % 19.5 % (24.0-44.0); MEAN CORPUSCULAR HEMOGLOBIN 30.4 pg (27.0-33.0); MEAN CORPUSCULAR HGB CONC 31.1 g/dl (32.0-36.5); MEAN CORPUSCULAR VOLUME 97.7 fl (80.0-96.0); MONO # 0.6 10^3/uL (0.0-0.8); MONO % 8.3 % (0.0-5.0); NEUTROPHILS # 4.5 10^3/uL (1.5-8.5); NEUTROPHILS % 67.3 % (36.0-66.0); PLATELET COUNT, AUTOMATED 234 10^3/uL (150-450); RED BLOOD COUNT 2.63 10^6/uL (4.30-6.10); WHITE BLOOD COUNT 6.6 10^3/uL (4.0-10.0)
[2020-02-19 06:45] LABS: APPEARANCE, BODY FLUID HAZY (CLEAR); PERITONEAL DIALYSATE FL COLOR PALE YELLOW (COLORLESS); SOURCE, BODY FLUID PERITONEAL DIALYSATE
[2020-02-19 06:52] LABS: ALBUMIN 1.7 GM/DL (3.2-5.2); CALCIUM LEVEL 7.5 MG/DL (8.5-10.1); CREATININE FOR GFR 7.83 MG/DL (0.70-1.30); GLOMERULAR FILTRATION RATE 7.9 (>60); PHOSPHORUS LEVEL 3.5 MG/DL (2.5-4.9); POTASSIUM SERUM 3.7 MEQ/L (3.5-5.1)
[2020-02-19] MEDS: OMEPRAZOLE 20 MG CAP PO SCH ×2 (09:01→21:55)
[2020-02-19] MEDS: METOPROLOL TART 50 MG TAB PO SCH ×2 (09:01→21:55)
[2020-02-19] MEDS: HEPARIN SOD (PORCINE) 5000UNITS/ML 1ML VIAL/SYRINGE SC SCH ×2 (09:02→21:56)
[2020-02-19] MEDS: CALCITRIOL 0.25 MCG CAP (S0169) PO SCH (09:02)
[2020-02-19] MEDS ORDERED: ISOVUE-370 76% 100ML VIAL As Ordered ONE (10:05)
[2020-02-19] MEDS: GASTROGRAFIN SOLUTION 30ML PO SCH ×2 (10:34→11:21)
[2020-02-19 11:28] LABS: C REACTIVE PROTEIN QUANTITATIV 6.21 MG/DL (0.00-0.30)
[2020-02-19] MEDS: MEROPENEM INJ 1 GM in IV 1 EA IV SCH (12:24)
--- NOTE | 2020-02-19 13:20 | REP ---
REASON: Followup diverticulitis. COMPARISON: 02/14/2020. CONTRAST: 100 mL Isovue 370. There is no change in the lung bases. There is a small amount of free fluid in the abdomen and pelvis status quo. The patient has a peritoneal dialysis catheter in place. The liver, gallbladder, spleen, pancreas, adrenal glands and kidneys are unchanged. Sigmoid colon wall thickening and changes consistent with sigmoid colon diverticulitis significantly improved. Small pelvic sidewall lymph nodes status quo. No changed in the osseous structures. IMPRESSION: 1. Significant improvement in the diverticulitis seen previously. 2. Free fluid as described above. Electronically Signed by Gordon Santana DO 02/19/2020 01:47 P
[2020-02-19 14:00] VITALS: BP 124/72
--- NOTE | 2020-02-19 15:40 | IPN ---
DATE OF SERVICE: 02/19/2020 SUBJECTIVE: The patient was seen and examined at the bedside today morning. His diet was advanced to soft diet yesterday. He reports that his abdominal pain is slightly better today as compared with yesterday. However, peritoneal fluid cell count is worsening today morning and he also had low grade temperature of 100 degrees Fahrenheit last night. He denies any complaints with peritoneal dialysis but reports that he is retaining fluid during peritoneal dialysis exchanges. OBJECTIVE: Vital Signs: Temperature is 98.8 degrees Fahrenheit, maximum temperature (Tmax) is 100 degrees Fahrenheit last night. Blood pressure is 119/75, pulse is 83, respiratory rate of 17, saturating 100% on room air. Intake/Output: Urine output recorded is 900 mL today, it was 1.4 liters yesterday because he was given a dose of Lasix as well. Weight in the bed scale is 87.5 kg. PHYSICAL EXAMINATION: General: The patient is awake, alert, oriented times three, laying in bed, in no apparent distress. Head/Neck Exam: Extraocular muscles intact. Pupils equally round and reactive to light. He is wearing hearing aids. Mucous membranes are moist. Neck is supple. There is no jugular venous distention (JVD): Cardiovascular: S1, S2, regular rate. No edema of the bilateral lower extremities. Respiratory: Chest is clear to auscultation bilaterally. Bilateral equal air entry. No rales or rhonchi. Abdomen is soft, mildly tender to deep palpation in the bilateral lower quadrants and in the suprapubic region, and he does have some rebound tenderness as well. He has a small umbilical hernia in the umbilical region and that is tender to palpation as well. Peritoneal dialysis exit site in the left upper quadrant is clean. Musculoskeletal: No clubbing or cyanosis. Pulses are 2+. 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 The patient moves all extremities and communicates well. LAB REVIEW: Complete blood count (CBC) showed WBC of 6.6, hemoglobin is 8, platelets are 234. Basic metabolic panel (BMP) showed sodium 142, potassium 3.7, chloride 105, bicarbonate 29, BUN 36, creatinine is 7.8, calcium 7.5, phosphorus is 3.5. C-reactive protein is 6.2. Albumin is 1.7. Microbiology: Cultures are all negative so far. IMAGING: No new imaging available at this time. CURRENT INPATIENT MEDICATIONS: The patient's medications were all reviewed by myself. She continues to be on IV fluconazole and IV meropenem. No other significant change in medications today as compared with yesterday. ASSESSMENT/PLAN: 1. Acute peritonitis. The patient has peritoneal dialysis catheter and he has acute diverticulitis as well. He continues to be on IV fluconazole and IV meropenem. Peritoneal fluid cell count today is 8009, which is higher than yesterday, it was 2467 yesterday. The patient was admitted on 02/14/2020. Today is day #6 of antibiotics. The patient is not responding well to the IV antibiotics. Technically it is a treatment failure. He is going to have a repeat CAT scan of the abdomen and pelvis with oral and IV contrast. Surgical service is already on board. I suspect that most likely will have to remove the catheter and he might need surgery of his sigmoid colon as well. Continue the current antibiotics. Infectious disease is also going to see the patient. 2. Acute diverticulitis. The patient's diet was advanced to soft diet yesterday. He still has tenderness and rebound tenderness in the lower abdomen. He continues to be on IV antibiotics. Further management after the CAT scan of the abdomen and pelvis result comes back. Pain is optimized with morphine. The patient also has tenderness in the umbilical region. Most likely it is an umbilical hernia that is hurting him. 3. End-stage renal disease. The patient is currently on peritoneal dialysis. He is getting five manual exchanges all 2.5%. Continue the current regimen. If we have to remove the catheter the patient will need a tunneled dialysis catheter for initiation of hemodialysis. 4. Cardiomyopathy. The patient was given a dose of Lasix yesterday. Volume status is optimized with dialysis, however, he is retaining fluid. I am going to give another dose of Lasix today. 5. Anemia secondary to end-stage renal disease and iron deficiency. IV iron is not being given because of acute peritonitis. He continues to be on Aranesp. Hemoglobin level is slightly better today. 6. Hypokalemia. He was given oral potassium. Potassium level is better. 7. Protein calorie malnutrition. The patient was started on Nepro yesterday. Albumin level is low and stable.
[2020-02-19] MEDS ORDERED: MIRALAX *UNIT DOSE* 17GM PACKET PO PRN (15:45)
[2020-02-19] MEDS: FLUCONAZOLE 100 MG in IV 1 EA IV SCH (18:19)
--- NOTE | 2020-02-19 20:46 | CR ---
DATE OF CONSULTATION: 02/19/2020 INFECTIOUS DISEASE CONSULTATION Asked to consult by hospitalist for evaluation of peritonitis secondary to acute diverticulitis in a patient with peritoneal dialysis catheter. HISTORY OF PRESENT ILLNESS: Mr. Bassett is a pleasant 49-year-old gentleman with a history of Alport syndrome who was admitted with abdominal pain that he initially described as diffuse, mostly in the suprapubic area on the left side. That was associated with some chills but no fever. The pain was sharp in nature. He had some nausea and vomiting initially, which have markedly improved. He states the pain was about 10/10 and currently is 2/10. He was treated by dialysis at [facility] with intraperitoneal vancomycin and gentamicin on 02/11/2020 without improvement and then he was admitted on 02/13/2020. Since admission, the patient has received multiple antibiotics including ciprofloxacin 250 mg by mouth twice a day times one dose, fluconazole 200 mg IV on 02/16/2020, followed by 100 mg IV since 02/17/2020, metronidazole 500 mg by mouth every 8 hours times three doses. Meropenem started on 02/13/2020 1 gram IV ever 24 hours. Vancomycin 2 grams intraperitoneal were given on 02/15/2020. He also received another dose as an outpatient on 02/11/2020. ALLERGIES: No known drug allergies. LABORATORY DATA: White count 6.6; on admission it was 11, hemoglobin 8, hematocrit 25.7, platelets 234, 67% neutrophils, 19% lymphocytes, 8% monocytes. Sodium 142, potassium 3.7, chloride 105, bicarbonate 29, BUN 36, creatinine 7.83, glucose 114, calcium 7.5, phosphorus 3.5, CRP 6.21, albumin 1.7. Blood cultures, three sets, on 02/13/2020 were negative. Ascites fluid gram stain and culture final are negative on 02/14/2020, 02/15/2020, and 02/16/2020, no anaerobic cultures were sent. Ascites fluid AFB, fungal smear and culture are pending. Three CT abdomen and pelvis were done since admission. They were reviewed with Dr. Alberto, and he stated that the diverticulitis in the sigmoid colon has significant improvement compared to previous CTs. Small pelvic sidewall lymph nodes that are unchanged. Chest x-ray: Lungs are clear. No pleural effusion. Cardiac silhouette is enlarged. REVIEW OF SYSTEMS: The patient has no nausea, vomiting or diarrhea. He states he has been constipated and feels bloated. He has a decreased appetite, but he feels it is due to constipation and retention of some of the peritoneal fluid. Abdominal pain has markedly improved. PAST MEDICAL HISTORY: Significant for end-stage renal disease. The patient was on hemodialysis from December of 2016 through a right internal jugular (IJ) tunneled catheter until June of 2017. He started using his peritoneal dialysis (PD) catheter. Chronic systolic and diastolic heart failure, pulmonary hypertension, chronic hypertension, gastroesophageal reflux disease. PAST SURGICAL HISTORY: Ventricular septal defect (VSD) repair at the age of 4, PD catheter placement by Dr. Inman June 18, 2017, tunneled catheter placement right IJ in December of 2016 and removal in June of 2017. He is a healthy looking gentleman in no acute distress. Heart: Normal S1, S2. No murmurs appreciated. Lungs are clear. No wheezes, rales or rhonchi. Abdomen: Distended, soft with a PD catheter in place, mildly tender in the left lower quadrant but no guarding. Back: No costovertebral angle (CVA) or lumbosacral tenderness. Extremities: No clubbing, cyanosis or edema. No calf tenderness. Neck is supple. No jugular venous distention (JVD), no bruits. Neurologic Exam: Normal, cranial nerves intact. Alert, oriented times three. IMPRESSION: Mr. Bassett is a 49-year-old gentleman who was admitted with diffuse abdominal pain with peritonitis secondary to acute diverticulitis. The patient clinically has improved. Cultures have all remained negative, although no anaerobic culture was sent. The concern is that peritoneal fluid white count continues to fluctuate ranging anywhere from 468 on admission, peaking at 24,000 and currently at 8000. Even though clinically the patient has improved with normalization of his white count, he has only low grade fever, the white cell count of peritoneal fluid is concerning. Clinically, the abdominal pain has markedly improved. If the catheter is removed, then the patient will need to go back to hemodialysis, and he is not very excited about that. PLAN I would suggest since he has definitely showed clinical improvement to continue with with meropenem and fluconazole that would cover for diverticulitis. If peritoneal fluid cell count does not decrease in the next couple days, then the PD catheter will need to be removed. The case has been discussed with Dr. Seay who agrees with the plan MTDD
--- NOTE | 2020-02-19 20:52 | IPNPDOC ---
Date Seen The patient was seen on 02/19/20. Progress Note SUBJECTIVE: Continued abdominal discomfort, periumbilical similar to yesterday. Peritoneal fluid WBC increased to 8K, fungal fluid studies still pending. ID consulted, repeat CT abd/pelvis with PO and IV contrast ordered to r/o worsening diverticulitis/microperforation. Patient denies chest pain, increased shortness of breath, fevers, chills, nausea or vomiting. OBJECTIVE: VITAL SIGNS: Please see below PHYSICAL EXAMINATION: CONSTITUTIONAL: No acute distress, resting comfortably, AAO x 3 EYES: PERRLA, EOM intact HENT, MOUTH: Normocephalic, atraumatic, moist mucous membranes NECK: SUPPLE, no JVD, no lymphadenopathy, no carotid bruit CV: Regular rate and rhythm, S1S2 normal, no murmurs/rubs/gallops RESPIRATORY: Clear to auscultation bilaterally, no rales/rhonchi/wheezes GI: Distended abdomen, tender to palpation of periumbilical area, BS positive in 4 quadrants, no rebound or guarding, no organomegaly, multiple well healed scars on abdomen, peritoneal dialysis catheter in place : Deferred MUSCULOSKELETAL: Normal ROM. No cyanosis, clubbing, swelling, joint deformity, extremity edema INTEGUMENTARY: Intact, no rashes, no lesions, no erythema NEUROLOGIC: Cranial Nerves II-XII are intact, no focal deficits PSYCHIATRIC: Mood and affect are normal CURRENT MEDICATIONS: Please see below LABORATORY DATA: Please see below Microbiology: BCx x 2 sets: NG at 72 hrs Peritoneal fluid GS and Cx 02/15/20: Few WBC, no organisms. Cx pending. Peritoneal fluid GS and Cx 02/16/20: Many WBC, no organisms. Cx NG Fungal cultures pending IMAGING: No new imaging. ASSESSMENT: 49 y/o M treated for acute diverticulitis, spontaneous bacterial peritonitis. PLAN: 1. Acute bacterial peritonitis likely 2/2 to peritoneal dialysis. Peritoneal fluid worsened with WBC incr to 8K, abdominal pain persists. Will repeat CT with PO and IV contrast to r/o worsening diverticulitis, possible abscess or microperforations. Continue to treat with fluconazole 100 mg IV daily, Meropenem. F/u fungal studies, Infectious disease recommendations. If CT does not show surgical issue, may need to rediscuss taking peritoneal catheter out. F/u surgical, ID and nephrology input. 2. Acute diverticulitis. Repeat CT abd/pelvis today. C/w IV abx, no prior surgical indication. F/u daily labs. 3. End-stage renal disease, peritoneal dialysis depended. Nephrology following. 4. Secondary hyperparathyroidism. C/w calcitriol 0.25 mcg by mouth daily. 5. Chronic systolic and diastolic heart failure. Not currently in exacerbation. C/w BB, ARB, 6. Hypokalemia. KCL 40 mEq given today. F/u AM labs. 7. HTN. Stable. C/w metoprolol and losartan. 8. Anemia likely 2/2 to chronic disease and iron deficiency. Stopped IV venofer, giving Aranesp with dialysis. 9. 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 He is listed for kidney and heart transplant. C/w metoprolol and losartan. 10. DVT px. Heparin. DISPOSITION: Currently inpatient status. Plan is discharge home when medically improved. VS, I&O, 24H, Fishbone Vital Signs/I&O Vital Signs Date Time Temp Pulse Resp B/P (MAP) Pulse Ox O2 Delivery O2 Flow Rate FiO2 02/19/20 14:00 97.9 88 16 124/72 (89) 100 Room Air I&O- Last 24 Hours up to 6 AM 02/19/20 06:00 Intake Total 8960 ml Output Total 8800 ml Balance 160 ml Laboratory Data 24H LABS Laboratory Tests 2 02/19/20 05:45: Body Fluid Source PERITONEAL DIALYSATE, Body Fluid WBC (Auto) 8009H, Body Fluid RBC (Auto) < 2, Body Fluid Mononuclear Cells % Auto 10.7H, Fluid Polymorphonuclear Cell % Auto 89.3H, Peritoneal Fluid Color PALE YELLOW, Peritoneal Fluid Appearance HAZY 02/19/20 06:12: Immature Granulocyte % (Auto) 2.3, Neutrophils (%) (Auto) 67.3H, Lymphocytes (%) (Auto) 19.5L, Monocytes (%) (Auto) 8.3H, Eosinophils (%) (Auto) 2.3, Basophils (%) (Auto) 0.3, Neutrophils # (Auto) 4.5, Lymphocytes # (Auto) 1.3L, Monocytes # (Auto) 0.6, Eosinophils # (Auto) 0.2, Basophils # (Auto) 0.0, Nucleated Red Blood Cells % (auto) 0.0, Anion Gap 8, Glomerular Filtration Rate 7.9L, Calcium Level 7.5L, Phosphorus Level 3.5, C-Reactive Protein, Quantitative 6.21H, Albumin 1.7L CBC/BMP Laboratory Tests 02/19/20 06:12 Microbiology Microbiology 02/16/20 Gram Stain - Final, Complete 02/16/20 Body Fluid Culture - Final, Complete 02/15/20 Gram Stain - Final, Complete 02/15/20 Body Fluid Culture - Final, Complete 02/14/20 Acid Fast Stain, Received Pending 02/14/20 Mycobacterial Culture, Received Pending 02/14/20 Fungal Smear, Received Pending 02/14/20 Fungal Culture, Received Pending 02/14/20 Gram Stain - Final, Complete 02/14/20 Body Fluid Culture - Final, Complete 02/13/20 Blood Culture - Final, Complete NO GROWTH AFTER 5 DAYS 02/13/20 Blood Culture - Final, Complete NO GROWTH AFTER 5 DAYS 02/13/20 Blood Culture - Final, Complete NO GROWTH AFTER 5 DAYS Current Medications Current Medications Medications (Trade) Dose Ordered Sig/Marko Route PRN Reason Start Time Stop Time Status Last Admin Dose Admin Acetaminophen (Tylenol Tab) 650 mg Q4H PRN PO PAIN OR FEVER 02/13/20 15:15 02/18/20 20:49 Calcitriol (Rocaltrol) 0.25 mcg DAILY PO 02/14/20 09:00 02/19/20 09:02 Calcium Acetate (Phoslo) 667 mg WM PO 02/13/20 18:00 02/16/20 10:39 DC 02/15/20 18:21 Ciprofloxacin (Cipro) 250 mg BID PO 02/15/20 12:00 02/15/20 14:24 DC 02/15/20 12:34 Ciprofloxacin (Cipro) 250 mg BID@06,18 PO 02/15/20 18:00 02/16/20 07:38 DC 02/16/20 06:10 Ciprofloxacin (Cipro) 500 mg DAILY@06 PO 02/15/20 12:00 02/15/20 11:28 DC Darbepoetin Ac (Aranesp) 200 mcg Th@0900 SC 02/18/20 09:00 02/18/20 13:21 Diatrizoate Meglum/ Diatrizoate Sod (Gastrografin) 10 ml Q30M PO 02/14/20 12:45 02/14/20 13:16 DC 02/14/20 13:15 Diatrizoate Meglum/ Diatrizoate Sod (Gastrografin) 10 ml Q30M PO 02/19/20 10:30 02/19/20 11:01 DC 02/19/20 11:21 Fluconazole 100 mg/IV Miscellaneous Supplies 50 ml @ 50 mls/hr Q24H IV 02/17/20 18:00 02/19/20 18:19 Heparin Sodium (Porcine) (Heparin) 5,000 units Q12H SC 02/13/20 21:00 02/19/20 09:02 Home Med (Med Rec Complete!) ASDIRECTED XX 02/13/20 15:45 02/13/20 15:58 DC Hydroxyzine HCl (Atarax) 25 mg BIDP PRN PO ITCHING 02/13/20 17:15 Iron 200 mg/ Sodium Chloride 110 ml @ 110 mls/hr DAILY IV 02/14/20 13:00 02/15/20 14:27 DC 02/15/20 09:29 Losartan Potassium (Cozaar) 50 mg QPM PO 02/13/20 21:00 02/18/20 20:47 Meropenem (Merrem) 1 gm Q24H XX 02/14/20 22:00 02/16/20 07:38 DC 02/15/20 22:15 Meropenem 1 gm/IV Miscellaneous Supplies 50 ml @ 100 mls/hr Q24H IV 02/14/20 16:00 02/13/20 18:41 DC Meropenem 1 gm/IV Miscellaneous Supplies 50 ml @ 100 mls/hr Q24H IV 02/16/20 12:00 02/19/20 12:24 Metoprolol Tartrate (Lopressor) 50 mg BID PO 02/13/20 21:00 02/19/20 09:01 Metronidazole (Flagyl) 500 mg Q8H PO 02/15/20 12:00 02/15/20 14:24 DC 02/15/20 12:34 Metronidazole (Flagyl) 500 mg Q8H PO 02/15/20 22:00 02/16/20 07:38 DC 02/16/20 06:10 Morphine Sulfate (Morphine Sulfate Inj) 2 mg Q4H PRN IV MODERATE PAIN (PS 5-7) 02/16/20 08:15 02/18/20 12:58 Omeprazole (PriLOSEC) 40 mg BID PO 02/13/20 21:00 02/19/20 09:01 Ondansetron HCl (ZOFRAN INJection) 4 mg Q6HP PRN IV NAUSEA OR VOMITING 02/16/20 10:45 Polyethylene Glycol (Miralax) 1 pkt DAILYPRN PRN PO CONSTIPATION 02/19/20 15:45 Sucroferric Oxyhydroxide (Velphoro) 500 mg WM PO 02/13/20 18:00 02/15/20 14:27 DC 02/15/20 12:34 Vitamin D (Drisdol) 50,000 units Luis@0900 PO 02/14/20 09:00 02/14/20 08:52 Allergies Coded Allergies: No Known Allergies (Unverified , 04/18/17) Missy Ascencio MD Feb 19, 2020 20:52
[2020-02-19] MEDS: LOSARTAN 50MG TABLET PO SCH (21:55)
[2020-02-19 22:00] VITALS: BP 113/75
[2020-02-20 02:00] VITALS: BP 113/76
[2020-02-20 06:00] VITALS: BP 131/74
[2020-02-20 06:39] LABS: SOURCE, BODY FLUID PERITONEAL DIALYSATE
[2020-02-20 06:40] LABS: APPEARANCE, BODY FLUID HAZY (CLEAR); PERITONEAL DIALYSATE FL COLOR PALE YELLOW (COLORLESS)
[2020-02-20 07:00] LABS: BASO % 0.3 % (0.0-1.0); EOS # 0.1 10^3/uL (0.0-0.5); EOS % 1.9 % (0.0-3.0); HEMATOCRIT 26.3 % (42.0-52.0); HEMOGLOBIN 8.2 g/dl (13.5-17.5); LYMPH # 1.5 10^3/uL (1.5-5.0); LYMPH % 19.8 % (24.0-44.0); MEAN CORPUSCULAR HEMOGLOBIN 30.4 pg (27.0-33.0); MEAN CORPUSCULAR HGB CONC 31.2 g/dl (32.0-36.5); MEAN CORPUSCULAR VOLUME 97.4 fl (80.0-96.0); MONO # 0.6 10^3/uL (0.0-0.8); NEUTROPHILS # 4.9 10^3/uL (1.5-8.5); NEUTROPHILS % 65.7 % (36.0-66.0); PLATELET COUNT, AUTOMATED 261 10^3/uL (150-450); WHITE BLOOD COUNT 7.5 10^3/uL (4.0-10.0)
[2020-02-20 07:25] LABS: ALBUMIN 1.7 GM/DL (3.2-5.2); BILIRUBIN,TOTAL 0.1 MG/DL (0.2-1.0); CREATININE FOR GFR 7.41 MG/DL (0.70-1.30); GLOMERULAR FILTRATION RATE 8.4 (>60); PHOSPHORUS LEVEL 4.1 MG/DL (2.5-4.9); TOTAL PROTEIN 4.7 GM/DL (6.4-8.2)
[2020-02-20] MEDS ORDERED: VANCOMYCIN 1000MG/20ML VIAL IP ONE (10:00)
[2020-02-20] MEDS: OMEPRAZOLE 20 MG CAP PO SCH ×2 (10:23→21:58)
[2020-02-20] MEDS: HEPARIN SOD (PORCINE) 5000UNITS/ML 1ML VIAL/SYRINGE SC SCH ×2 (10:23→21:58)
[2020-02-20] MEDS: CALCITRIOL 0.25 MCG CAP (S0169) PO SCH (10:24)
[2020-02-20] MEDS: METOPROLOL TART 50 MG TAB PO SCH ×2 (10:25→21:58)
[2020-02-20] MEDS ORDERED: FUROSEMIDE 100MG/10ML VIAL (J1940) IV ONE (12:00)
[2020-02-20] MEDS: ACETAMINOPHEN TAB 650MG DOSE (2X325MG) PO PRN (12:07)
[2020-02-20] MEDS: MEROPENEM INJ 1 GM in IV 1 EA IV SCH (12:08)
--- NOTE | 2020-02-20 13:27 | IPN ---
DATE: 02/20/2020 SUBJECTIVE: The patient was seen and examined at the bedside today morning. He was seen by infectious disease yesterday as well. He continues to be on IV antibiotics. He reports his abdominal pain is slightly better today as compared with yesterday. Peritoneal fluid cell count is also slightly better. He is afebrile and hemodynamically stable. He is tolerating a regular diet now. He reports retention of fluid and lower extremity edema. OBJECTIVE: Vital Signs: Temperature is 99 degrees Fahrenheit, blood pressure 131/74, pulse is 83, respiratory rate of 17, saturating 98% on room air. Intake and Output: Urine output recorded is 1.7 liters yesterday, 575 mL so far today since overnight. Weight in the bed scale is 82.3 kg, which is not reliable. There is a 5 kg difference since yesterday. PHYSICAL EXAMINATION: General: The patient is awake, alert, oriented x3, laying in bed, in no apparent distress. Head and Neck Exam: The patient is wearing a hearing aid. Mucous membranes are moist. Neck is supple. There is mildly elevated jugular venous distention (JVD). Cardiovascular: S1, S2. Regular rate. Trace edema of the bilateral lower extremities. Respiratory: Chest is clear to auscultation bilaterally. Bilateral equal air entry. No rales or rhonchi. Abdomen: Soft. Left upper quadrant peritoneal dialysis catheter exit site is clean. He has an umbilical hernia which is moderately tender to touch. Left lower quadrant tender and right lower quadrant tenderness and rebound. Tenderness is slightly better today as compared with yesterday. He still has mild persistent tenderness in the suprapubic region. Musculoskeletal: No clubbing or cyanosis. Pulses are 2+. 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 Power is 5/5 in all extremities. Skin: No rashes or ulcers. LAB REVIEW: CBC showed a WBC of 7.5, hemoglobin 8.2 and platelets are 261. Peritoneal fluid cell count is 5472, it was 8000 yesterday. BMP showed a sodium of 142, potassium 4, chloride 104, bicarb 31, BUN 35, creatinine is 7.4, calcium is 8, phosphorus of 4.1 and albumin 1.7. Microbiology: All the cultures are negative so far. IMAGING: CT scan of the abdomen and pelvis with oral and IV contrast was done yesterday, which showed significant improvement in the diverticulitis which was seen previously. CURRENT INPATIENT MEDICATIONS: The patient's medications were all reviewed by myself. He continues to be on IV fluconazole and meropenem. I have given him a dose of Lasix 60 mg IV x1 dose, one dose of vancomycin 2 grams intraperitoneal with 10 AM exchange was ordered today. ASSESSMENT/PLAN: 1. Acute peritonitis. The patient has culture negative peritonitis along with acute diverticulitis. He is empirically on vancomycin, meropenem and IV fluconazole. He still has an elevated white cell count, however, it is slightly better today as compared with yesterday. Infectious disease recommended to wait for improvement in his symptoms and diverticulitis. No catheter removal is planned, however, if his cell count still stays high by coming Saturday, then his catheter will need to be removed. 2. Acute diverticulitis. The patient is tolerating the regular diet. He continues to be on IV meropenem. He still reports some loose stools, but clinically on exam he is better today as compared with yesterday. 3. End-stage renal disease. He is peritoneal dialysis dependent. He is getting five manual exchanges, all 2.5%, but despite that he is retaining the fluid. Fluid management is as mentioned below. 4. Cardiomyopathy. The patient is on transplant list because of cardiomyopathy, low ejection fraction and because of fluid retention. I have ordered one dose of Lasix 60 mg IV to be given today. 5. Anemia secondary to end-stage renal disease on iron deficiency. IV iron is not being given because of acute infection. He continues to be on Aranesp. Hemoglobin level is suboptimal, but stable. 6. Protein calorie malnutrition. He continues to be on Nepro along with the diet and he is currently on a regular diet now. MTDD
[2020-02-20 14:00] VITALS: BP 140/74
--- NOTE | 2020-02-20 17:53 | IPNPDOC ---
Date Seen The patient was seen on 02/20/20. Progress Note SUBJECTIVE: Improved periumbilical abdominal discomfort, peritoneal fluid WBC decreased to 5472K from 8K, fungal fluid studies still pending. Repeat CT abd/pelvis with PO and IV contrast showed improved diverticulitis. Infectious disease recommended c/w abx; however, if peritoneal fluid WBC worsen over next several days then to consider removal of peritoneal dialysis catheter. Patient denies chest pain, increased shortness of breath, fevers, chills, nausea or vomiting. OBJECTIVE: VITAL SIGNS: Please see below PHYSICAL EXAMINATION: CONSTITUTIONAL: No acute distress, resting comfortably, AAO x 3 EYES: PERRLA, EOM intact HENT, MOUTH: Normocephalic, atraumatic, moist mucous membranes NECK: SUPPLE, no JVD, no lymphadenopathy, no carotid bruit CV: Regular rate and rhythm, S1S2 normal, no murmurs/rubs/gallops RESPIRATORY: Clear to auscultation bilaterally, no rales/rhonchi/wheezes GI: Distended abdomen, tender to palpation of periumbilical area, 3/10 on pain scale. BS positive in 4 quadrants, no rebound or guarding, no organomegaly, multiple well healed scars on abdomen, peritoneal dialysis catheter in place : Deferred MUSCULOSKELETAL: Normal ROM. No cyanosis, clubbing, swelling, joint deformity, extremity edema INTEGUMENTARY: Intact, no rashes, no lesions, no erythema NEUROLOGIC: Cranial Nerves II-XII are intact, no focal deficits PSYCHIATRIC: Mood and affect are normal CURRENT MEDICATIONS: Please see below LABORATORY DATA: Please see below Microbiology: BCx x 2 sets: NG at 72 hrs Peritoneal fluid GS and Cx 02/15/20: Few WBC, no organisms. Cx pending. Peritoneal fluid GS and Cx 02/16/20: Many WBC, no organisms. Cx NG Fungal cultures pending IMAGING: CT abd/pelvis with IV and PO contrast: There is no change in the lung bases. There is a small amount of free fluid in the abdomen and pelvis status quo. The patient has a peritoneal dialysis catheter in place. The liver, gallbladder, spleen, pancreas, adrenal glands and kidneys are unchanged. Sigmoid colon wall thickening and changes consistent with sigmoid colon diverticulitis significantly improved. Small pelvic sidewall lymph nodes status quo. No changed in the osseous structures. ASSESSMENT: 49 y/o M treated for acute diverticulitis, spontaneous bacterial peritonitis. PLAN: 1. Acute bacterial peritonitis likely 2/2 to peritoneal dialysis. Peritoneal fluid WBC improved to 5472 from 8K, abdominal pain persists but also improved. Repeat CT above, unlikely diverticulitis as cause of continued increases of peritoneal fluid WBC. Plan is to monitor fluid WBC daily and if not improved by 02/22/20 then will likely need to remove PD catheter. Fungal studies still pending. For now, c/w fluconazole 100 mg IV daily, Meropenem. ID following. 2. Acute diverticulitis. Repeat CT abd/pelvis showed significant improvment. C/w IV abx, no surgical indication. 3. End-stage renal disease, peritoneal dialysis depended. Nephrology following. 4. Secondary hyperparathyroidism. C/w calcitriol 0.25 mcg by mouth daily. 5. Chronic systolic and diastolic heart failure. Not currently in exacerbation. C/w BB, ARB, 6. Hypokalemia. KCL 40 mEq given today. F/u AM labs. 7. HTN. Stable. C/w metoprolol and losartan. 8. Anemia likely 2/2 to chronic disease and iron deficiency. C/w Aranesp with dialysis. 9. 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 He is listed for kidney and heart transplant. C/w metoprolol and losartan. 10. DVT px. Heparin. DISPOSITION: Currently inpatient status. Plan is discharge home when medically improved. VS, I&O, 24H, Fishbone Vital Signs/I&O Vital Signs Date Time Temp Pulse Resp B/P (MAP) Pulse Ox O2 Delivery O2 Flow Rate FiO2 02/20/20 14:00 98.4 85 18 140/74 (96) 97 02/20/20 06:00 Room Air I&O- Last 24 Hours up to 6 AM 02/20/20 05:59 Intake Total 7060 ml Output Total 7525 ml Balance -465 ml Laboratory Data 24H LABS Laboratory Tests 2 02/20/20 06:15: Body Fluid Source PERITONEAL DIALYSATE, Body Fluid WBC (Auto) 5472H, Body Fluid RBC (Auto) < 2, Body Fluid Mononuclear Cells % Auto 20.0H, Fluid Polymorphonuclear Cell % Auto 80.0H, Peritoneal Fluid Color PALE YELLOW, Periton eal Fluid Appearance HAZY 02/20/20 06:30: Immature Granulocyte % (Auto) 4.3H, Neutrophils (%) (Auto) 65.7, Lymphocytes (%) (Auto) 19.8L, Monocytes (%) (Auto) 8.0H, Eosinophils (%) (Auto) 1.9, Basophils (%) (Auto) 0.3, Neutrophils # (Auto) 4.9, Lymphocytes # (Auto) 1.5, Monocytes # (Auto) 0.6, Eosinophils # (Auto) 0.1, Basophils # (Auto) 0.0, Nucleated Red Blood Cells % (auto) 0.4H, Anion Gap 7L, Glomerular Filtration Rate 8.4L, Calcium Level 8.0L, Phosphorus Level 4.1, Total Bilirubin 0.1L, Aspartate Amino Transf (AST/SGOT) 37, Alanine Aminotransferase (ALT/SGPT) 62, Alkaline Phosphatase 96, Total Protein 4.7L, Albumin 1.7L, Albumin/Globulin Ratio 0.6 CBC/BMP Laboratory Tests 02/20/20 06:30 Microbiology Microbiology 02/16/20 Gram Stain - Final, Complete 02/16/20 Body Fluid Culture - Final, Complete 02/15/20 Gram Stain - Final, Complete 02/15/20 Body Fluid Culture - Final, Complete 02/14/20 Acid Fast Stain, Received Pending 02/14/20 Mycobacterial Culture, Received Pending 02/14/20 Fungal Smear, Received Pending 02/14/20 Fungal Culture, Received Pending 02/14/20 Gram Stain - Final, Complete 02/14/20 Body Fluid Culture - Final, Complete 02/13/20 Blood Culture - Final, Complete NO GROWTH AFTER 5 DAYS 02/13/20 Blood Culture - Final, Complete NO GROWTH AFTER 5 DAYS 02/13/20 Blood Culture - Final, Complete NO GROWTH AFTER 5 DAYS Current Medications Current Medications Medications (Trade) Dose Ordered Sig/Marko Route PRN Reason Start Time Stop Time Status Last Admin Dose Admin Acetaminophen (Tylenol Tab) 650 mg Q4H PRN PO PAIN OR FEVER 02/13/20 15:15 02/20/20 12:07 Calcitriol (Rocaltrol) 0.25 mcg DAILY PO 02/14/20 09:00 02/20/20 10:24 Calcium Acetate (Phoslo) 667 mg WM PO 02/13/20 18:00 02/16/20 10:39 DC 02/15/20 18:21 Ciprofloxacin (Cipro) 250 mg BID PO 02/15/20 12:00 02/15/20 14:24 DC 02/15/20 12:34 Ciprofloxacin (Cipro) 250 mg BID@06,18 PO 02/15/20 18:00 02/16/20 07:38 DC 02/16/20 06:10 Ciprofloxacin (Cipro) 500 mg DAILY@06 PO 02/15/20 12:00 02/15/20 11:28 DC Darbepoetin Ac (Aranesp) 200 mcg Th@0900 SC 02/18/20 09:00 02/18/20 13:21 Diatrizoate Meglum/ Diatrizoate Sod (Gastrografin) 10 ml Q30M PO 02/14/20 12:45 02/14/20 13:16 DC 02/14/20 13:15 Diatrizoate Meglum/ Diatrizoate Sod (Gastrografin) 10 ml Q30M PO 02/19/20 10:30 02/19/20 11:01 DC 02/19/20 11:21 Fluconazole 100 mg/IV Miscellaneous Supplies 50 ml @ 50 mls/hr Q24H IV 02/17/20 18:00 02/19/20 18:19 Heparin Sodium (Porcine) (Heparin) 5,000 units Q12H SC 02/13/20 21:00 02/20/20 10:23 Home Med (Med Rec Complete!) ASDIRECTED XX 02/13/20 15:45 02/13/20 15:58 DC Hydroxyzine HCl (Atarax) 25 mg BIDP PRN PO ITCHING 02/13/20 17:15 Iron 200 mg/ Sodium Chloride 110 ml @ 110 mls/hr DAILY IV 02/14/20 13:00 02/15/20 14:27 DC 02/15/20 09:29 Losartan Potassium (Cozaar) 50 mg QPM PO 02/13/20 21:00 02/19/20 21:55 Meropenem (Merrem) 1 gm Q24H XX 02/14/20 22:00 02/16/20 07:38 DC 02/15/20 22:15 Meropenem 1 gm/IV Miscellaneous Supplies 50 ml @ 100 mls/hr Q24H IV 02/14/20 16:00 6/13/20 18:41 DC Meropenem 1 gm/IV Miscellaneous Supplies 50 ml @ 100 mls/hr Q24H IV 02/16/20 12:00 02/20/20 12:08 Metoprolol Tartrate (Lopressor) 50 mg BID PO 02/13/20 21:00 02/20/20 10:25 Metronidazole (Flagyl) 500 mg Q8H PO 02/15/20 12:00 02/15/20 14:24 DC 02/15/20 12:34 Metronidazole (Flagyl) 500 mg Q8H PO 02/15/20 22:00 02/16/20 07:38 DC 02/16/20 06:10 Morphine Sulfate (Morphine Sulfate Inj) 2 mg Q4H PRN IV MODERATE PAIN (PS 5-7) 02/16/20 08:15 02/18/20 12:58 Omeprazole (PriLOSEC) 40 mg BID PO 02/13/20 21:00 02/20/20 10:23 Ondansetron HCl (ZOFRAN INJection) 4 mg Q6HP PRN IV NAUSEA OR VOMITING 02/16/20 10:45 Polyethylene Glycol (Miralax) 1 pkt DAILYPRN PRN PO CONSTIPATION 02/19/20 15:45 Sucroferric Oxyhydroxide (Velphoro) 500 mg WM PO 02/13/20 18:00 02/15/20 14:27 DC 02/15/20 12:34 Vitamin D (Drisdol) 50,000 units Luis@0900 PO 02/14/20 09:00 02/14/20 08:52 Allergies Coded Allergies: No Known Allergies (Unverified , 04/18/17) Missy Ascencio MD Feb 20, 2020 17:53
[2020-02-20] MEDS: FLUCONAZOLE 100 MG in IV 1 EA IV SCH (18:30)
[2020-02-20] MEDS: LOSARTAN 50MG TABLET PO SCH (21:58)
[2020-02-20 22:00] VITALS: BP 123/79
[2020-02-21 02:00] VITALS: BP 120/75
[2020-02-21 06:00] VITALS: BP 140/85
[2020-02-21 06:40] LABS: BASO # 0.1 10^3/uL (0.0-0.2); BASO % 0.6 % (0.0-1.0); EOS # 0.2 10^3/uL (0.0-0.5); EOS % 1.7 % (0.0-3.0); HEMATOCRIT 26.6 % (42.0-52.0); HEMOGLOBIN 8.4 g/dl (13.5-17.5); LYMPH # 1.6 10^3/uL (1.5-5.0); LYMPH % 17.2 % (24.0-44.0); MEAN CORPUSCULAR HEMOGLOBIN 31.1 pg (27.0-33.0); MEAN CORPUSCULAR HGB CONC 31.6 g/dl (32.0-36.5); MEAN CORPUSCULAR VOLUME 98.5 fl (80.0-96.0); MONO # 0.7 10^3/uL (0.0-0.8); MONO % 7.6 % (0.0-5.0); NEUTROPHILS # 6.2 10^3/uL (1.5-8.5); NEUTROPHILS % 68.5 % (36.0-66.0); PLATELET COUNT, AUTOMATED 281 10^3/uL (150-450)
[2020-02-21 07:14] LABS: APPEARANCE, BODY FLUID CLOUDY (CLEAR); PERITONEAL DIALYSATE FL COLOR COLORLESS (COLORLESS); SOURCE, BODY FLUID PERITONEAL DIALYSATE
[2020-02-21 07:18] LABS: ALBUMIN 1.7 GM/DL (3.2-5.2); BILIRUBIN,TOTAL 0.2 MG/DL (0.2-1.0); CALCIUM LEVEL 8.4 MG/DL (8.5-10.1); CREATININE FOR GFR 7.51 MG/DL (0.70-1.30); GLOMERULAR FILTRATION RATE 8.3 (>60); PHOSPHORUS LEVEL 4.3 MG/DL (2.5-4.9); POTASSIUM SERUM 3.8 MEQ/L (3.5-5.1); TOTAL PROTEIN 4.7 GM/DL (6.4-8.2)
[2020-02-21 10:00] VITALS: BP 128/81
[2020-02-21] MEDS: HEPARIN SOD (PORCINE) 5000UNITS/ML 1ML VIAL/SYRINGE SC SCH ×3 (10:32→22:24)
[2020-02-21] MEDS: CALCITRIOL 0.25 MCG CAP (S0169) PO SCH (10:32)
[2020-02-21] MEDS: VITAMIN D 50,000 UNITS CAPSULE (ERGOCALCIFEROL 1.25MG) PO SCH (10:32)
[2020-02-21] MEDS: OMEPRAZOLE 20 MG CAP PO SCH ×2 (10:33→21:58)
[2020-02-21] MEDS: METOPROLOL TART 50 MG TAB PO SCH ×2 (10:33→21:58)
[2020-02-21] MEDS: MEROPENEM INJ 1 GM in IV 1 EA IV SCH (12:41)
[2020-02-21 14:00] VITALS: BP 140/86
[2020-02-21] MEDS ORDERED: FUROSEMIDE 40MG/4ML VIAL (J1940) IV ONE (14:00)
--- NOTE | 2020-02-21 17:37 | IPNPDOC ---
Date Seen The patient was seen on 02/21/20. Progress Note SUBJECTIVE: Periumbilical abdominal discomfort still present but patient states it is improved at 3/10 on pain scale, localized to umbilical, peritoneal fluid WBC similar to 02/20/20 at 5461. Fungal fluid studies still pending. Will discuss with ID, nephrology in AM. Patient denies chest pain, increased shortness of breath, fevers, chills, nausea or vomiting. OBJECTIVE: VITAL SIGNS: Please see below PHYSICAL EXAMINATION: CONSTITUTIONAL: No acute distress, resting comfortably, AAO x 3 EYES: PERRLA, EOM intact HENT, MOUTH: Normocephalic, atraumatic, moist mucous membranes NECK: SUPPLE, no JVD, no lymphadenopathy, no carotid bruit CV: Regular rate and rhythm, S1S2 normal, no murmurs/rubs/gallops RESPIRATORY: Clear to auscultation bilaterally, no rales/rhonchi/wheezes GI: Distended abdomen, tender to palpation of umbilical area, 3/10 on pain scale. BS positive in 4 quadrants, no rebound or guarding, no organomegaly, multiple well healed scars on abdomen, peritoneal dialysis catheter in place : Deferred MUSCULOSKELETAL: Normal ROM. No cyanosis, clubbing, swelling, joint deformity, extremity edema INTEGUMENTARY: Intact, no rashes, no lesions, no erythema NEUROLOGIC: Cranial Nerves II-XII are intact, no focal deficits PSYCHIATRIC: Mood and affect are normal CURRENT MEDICATIONS: Please see below LABORATORY DATA: Please see below Microbiology: BCx x 2 sets: NG at 72 hrs Peritoneal fluid GS and Cx 02/15/20: Few WBC, no organisms. Cx pending. Peritoneal fluid GS and Cx 02/16/20: Many WBC, no organisms. Cx NG Fungal cultures pending IMAGING: No new imaging. ASSESSMENT: 49 y/o M treated for acute diverticulitis, spontaneous bacterial peritonitis. PLAN: 1. Acute bacterial peritonitis likely 2/2 to peritoneal dialysis. Peritoneal fluid WBC 5461. Repeat CT abd/pelvis showed unlikely diverticulitis as cause of continued increases of peritoneal fluid WBC. Plan is to monitor fluid WBC daily and if not improved by 02/22/20 then will likely need to remove PD catheter. Fungal studies still pending. For now, c/w fluconazole 100 mg IV daily, Meropenem. ID following. 2. Acute diverticulitis. Repeat CT abd/pelvis showed significant improvment. C/w IV abx, no surgical indication. 3. End-stage renal disease, peritoneal dialysis depended. Nephrology following. 4. Secondary hyperparathyroidism. C/w calcitriol 0.25 mcg by mouth daily. 5. Chronic systolic and diastolic heart failure. Not currently in exacerbation. C/w BB, ARB, 6. Hypokalemia. KCL 40 mEq given today. F/u AM labs. 7. HTN. Stable. C/w metoprolol and losartan. 8. Anemia likely 2/2 to chronic disease and iron deficiency. C/w Aranesp with dialysis. 9. 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 He is listed for kidney and heart transplant. C/w metoprolol and losartan. 10. DVT px. Heparin. DISPOSITION: Currently inpatient status. Discussed the plan with the patient in detail today. Hopeful for discharge home when medically improved. VS, I&O, 24H, Fishbone Vital Signs/I&O Vital Signs Date Time Temp Pulse Resp B/P (MAP) Pulse Ox O2 Delivery O2 Flow Rate FiO2 02/21/20 14:00 98.7 89 18 140/86 (104) 99 Room Air I&O- Last 24 Hours up to 6 AM 02/21/20 06:00 Intake Total 6160 ml Output Total 6600 ml Balance -440 ml Laboratory Data 24H LABS Laboratory Tests 2 02/21/20 05:59: Immature Granulocyte % (Auto) 4.4H, Neutrophils (%) (Auto) 68.5H, Lymphocytes (%) (Auto) 17.2L, Monocytes (%) (Auto) 7.6H, Eosinophils (%) (Auto) 1.7, Basophils (%) (Auto) 0.6, Neutrophils # (Auto) 6.2, Lymphocytes # (Auto) 1.6, Monocytes # (Auto) 0.7, Eosinophils # (Auto) 0.2, Basophils # (Auto) 0.1, Nucleated Red Blood Cells % (auto) 1.2H, Anion Gap 7L, Glomerular Filtration Rate 8.3L, Calcium Level 8.4L, Phosphorus Level 4.3, Total Bilirubin 0.2#, Aspartate Amino Transf (AST/SGOT) 27, Alanine Aminotransferase (ALT/SGPT) 49, Alkaline Phosphatase 91, Total Protein 4.7L, Albumin 1.7L, Albumin/Globulin Ratio 0.6 02/21/20 06:21: Body Fluid Source PERITONEAL DIALYSATE, Body Fluid WBC (Auto) 5461H, Body Fluid RBC (Auto) < 2, Body Fluid Mononuclear Cells % Auto 15.9H, Fluid Polymorphonuclear Cell % Auto 84.1H, Peritoneal Fluid Color COLORLESS, Peritoneal Fluid Appearance CLOUDY CBC/BMP Laboratory Tests 02/21/20 05:59 Microbiology Microbiology 02/16/20 Gram Stain - Final, Complete 02/16/20 Body Fluid Culture - Final, Complete 02/15/20 Gram Stain - Final, Complete 02/15/20 Body Fluid Culture - Final, Complete 02/14/20 Acid Fast Stain, Received Pending 02/14/20 Mycobacterial Culture, Received Pending 02/14/20 Fungal Smear, Received Pending 02/14/20 Fungal Culture, Received Pending 02/14/20 Gram Stain - Final, Complete 02/14/20 Body Fluid Culture - Final, Complete 02/13/20 Blood Culture - Final, Complete NO GROWTH AFTER 5 DAYS 02/13/20 Blood Culture - Final, Complete NO GROWTH AFTER 5 DAYS 02/13/20 Blood Culture - Final, Complete NO GROWTH AFTER 5 DAYS Current Medications Current Medications Medications (Trade) Dose Ordered Sig/Marko Route PRN Reason Start Time Stop Time Status Last Admin Dose Admin Acetaminophen (Tylenol Tab) 650 mg Q4H PRN PO PAIN OR FEVER 02/13/20 15:15 02/20/20 12:07 Calcitriol (Rocaltrol) 0.25 mcg DAILY PO 02/14/20 09:00 02/21/20 10:32 Calcium Acetate (Phoslo) 667 mg WM PO 02/13/20 18:00 02/16/20 10:39 DC 02/15/20 18:21 Ciprofloxacin (Cipro) 250 mg BID PO 02/15/20 12:00 02/15/20 14:24 DC 02/15/20 12:34 Ciprofloxacin (Cipro) 250 mg BID@,18 PO 02/15/20 18:00 02/16/20 07:38 DC 02/16/20 06:10 Ciprofloxacin (Cipro) 500 mg DAILY@06 PO 02/15/20 12:00 02/15/20 11:28 DC Darbepoetin Ac (Aranesp) 200 mcg Th@0900 MO 02/18/20 09:00 02/18/20 13:21 Diatrizoate Meglum/ Diatrizoate Sod (Gastrografin) 10 ml Q30M PO 02/14/20 12:45 02/14/20 13:16 DC 02/14/20 13:15 Diatrizoate Meglum/ Diatrizoate Sod (Gastrografin) 10 ml Q30M PO 02/19/20 10:30 02/19/20 11:01 DC 02/19/20 11:21 Fluconazole 100 mg/IV Miscellaneous Supplies 50 ml @ 50 mls/hr Q24H IV 02/17/20 18:00 02/20/20 18:30 Heparin Sodium (Porcine) (Heparin) 5,000 units Q12H SC 02/13/20 21:00 02/21/20 10:32 Home Med (Med Rec Complete!) ASDIRECTED XX 02/13/20 15:45 02/13/20 15:58 DC Hydroxyzine HCl (Atarax) 25 mg BIDP PRN PO ITCHING 02/13/20 17:15 Iron 200 mg/ Sodium Chloride 110 ml @ 110 mls/hr DAILY IV 02/14/20 13:00 02/15/20 14:27 DC 02/15/20 09:29 Losartan Potassium (Cozaar) 50 mg QPM PO 02/13/20 21:00 02/20/20 21:58 Meropenem (Merrem) 1 gm Q24H XX 02/14/20 22:00 02/16/20 07:38 DC 02/15/20 22:15 Meropenem 1 gm/IV Miscellaneous Supplies 50 ml @ 100 mls/hr Q24H IV 02/14/20 16:00 02/13/20 18:41 DC Meropenem 1 gm/IV Miscellaneous Supplies 50 ml @ 100 mls/hr Q24H IV 02/16/20 12:00 02/21/20 12:41 Metoprolol Tartrate (Lopressor) 50 mg BID PO 02/13/20 21:00 02/21/20 10:33 Metronidazole (Flagyl) 500 mg Q8H PO 02/15/20 12:00 02/15/20 14:24 DC 02/15/20 12:34 Metronidazole (Flagyl) 500 mg Q8H PO 02/15/20 22:00 02/16/20 07:38 DC 02/16/20 06:10 Morphine Sulfate (Morphine Sulfate Inj) 2 mg Q4H PRN IV MODERATE PAIN (PS 5-7) 02/16/20 08:15 02/18/20 12:58 Omeprazole (PriLOSEC) 40 mg BID PO 02/13/20 21:00 02/21/20 10:33 Ondansetron HCl (ZOFRAN INJection) 4 mg Q6HP PRN IV NAUSEA OR VOMITING 02/16/20 10:45 Polyethylene Glycol (Miralax) 1 pkt DAILYPRN PRN PO CONSTIPATION 02/19/20 15:45 Sucroferric Oxyhydroxide (Velphoro) 500 mg WM PO 02/13/20 18:00 02/15/20 14:27 DC 02/15/20 12:34 Vitamin D (Drisdol) 50,000 units Luis@0900 PO 02/14/20 09:00 02/21/20 10:32 Allergies Coded Allergies: No Known Allergies (Unverified , 04/18/17) Missy Ascencio MD Feb 21, 2020 17:37
[2020-02-21 18:00] VITALS: BP 141/86
[2020-02-21] MEDS: FLUCONAZOLE 100 MG in IV 1 EA IV SCH (18:25)
[2020-02-21] MEDS: LOSARTAN 50MG TABLET PO SCH (21:58)
[2020-02-21 22:00] VITALS: BP 141/85
[2020-02-22 02:00] VITALS: BP 135/84
[2020-02-22 06:00] VITALS: BP 139/85
[2020-02-22 06:07] LABS: BASO % 0.4 % (0.0-1.0); EOS # 0.1 10^3/uL (0.0-0.5); EOS % 1.1 % (0.0-3.0); HEMATOCRIT 26.3 % (42.0-52.0); HEMOGLOBIN 8.4 g/dl (13.5-17.5); LYMPH # 1.5 10^3/uL (1.5-5.0); LYMPH % 15.5 % (24.0-44.0); MEAN CORPUSCULAR HEMOGLOBIN 31.3 pg (27.0-33.0); MEAN CORPUSCULAR HGB CONC 31.9 g/dl (32.0-36.5); MEAN CORPUSCULAR VOLUME 98.1 fl (80.0-96.0); MONO # 0.8 10^3/uL (0.0-0.8); MONO % 7.9 % (0.0-5.0); NEUTROPHILS # 6.9 10^3/uL (1.5-8.5); NEUTROPHILS % 71.8 % (36.0-66.0); PLATELET COUNT, AUTOMATED 268 10^3/uL (150-450); RED BLOOD COUNT 2.68 10^6/uL (4.30-6.10); WHITE BLOOD COUNT 9.6 10^3/uL (4.0-10.0)
[2020-02-22 06:36] LABS: ALBUMIN 1.6 GM/DL (3.2-5.2); BILIRUBIN,TOTAL 0.2 MG/DL (0.2-1.0); CALCIUM LEVEL 8.3 MG/DL (8.5-10.1); CREATININE FOR GFR 7.01 MG/DL (0.70-1.30); GLOMERULAR FILTRATION RATE 8.9 (>60); POTASSIUM SERUM 3.3 MEQ/L (3.5-5.1); TOTAL PROTEIN 5.1 GM/DL (6.4-8.2); VANCOMYCIN RANDOM 18.7 UG/ML
[2020-02-22 06:43] LABS: APPEARANCE, BODY FLUID CLEAR (CLEAR); PERITONEAL DIALYSATE FL COLOR COLORLESS (COLORLESS); SOURCE, BODY FLUID PERITONEAL DIALYSATE
[2020-02-22] MEDS ORDERED: POTASSIUM CHLORIDE 10 MEQ SR TABLET PO ONE (07:45)
--- NOTE | 2020-02-22 09:54 | IPN ---
DATE OF SERVICE: 02/21/2020 SUBJECTIVE: The patient was seen and examined the bedside today morning. The patient is afebrile, hemodynamically stable. He continues to be on IV antibiotics. He reports that his abdominal pain is getting better. He is tolerating the diet. However, peritoneal fluid cell count is still coming back as high. It is more than 5000. OBJECTIVE: Vital Signs: Temperature is 98.7 degrees Fahrenheit, blood pressure 140/86, pulse is 89, respiratory rate of 18, saturating 99% on room air. Intake and Output: Urine output recorded yesterday is 1.9 liters. Peritoneal fluid input is 3900, output is 4500. Weight in the bed scale is 88.7 kg. PHYSICAL EXAMINATION: General: The patient is awake, alert, oriented times three, laying in bed, in no apparent distress. Head and Neck Exam: Extraocular muscles intact. Pupils equally round and reactive to light. Mucous membranes are moist. Neck is supple. There is mildly elevated jugular venous distention (JVD). Cardiovascular: S1, S2, regular rate. No edema of the bilateral lower extremities. Respiratory: Chest is clear to auscultation bilaterally. Bilateral equal air entry. No rales or rhonchi. Abdomen is soft. Positive bowel sounds. Left upper quadrant peritoneal dialysis catheter exit site is clean. He has mild tenderness to deep palpation in the left lower quadrant, right lower quadrant, and suprapubic region. Musculoskeletal: No clubbing or cyanosis. Pulses are 2+. Central Nervous System (POSTAL SUPERVISOR): No focal deficit. He is hard of hearing. Otherwise, he moves extremities and follows all commands. LAB REVIEW: Complete blood count (CBC) showed WBC of 9, hemoglobin 8.4, platelets are 281. Peritoneal fluid cell count is 5461, with 84% polymorphonuclear and was cloudy in appearance. Basic metabolic panel (BMP) showed sodium 142, potassium 3.8, chloride 103, bicarbonate 32, BUN 37, creatinine is 7.5. MICROBIOLOGY: All the cultures are negative so far. CURRENT INPATIENT MEDICATIONS: The patient's medications were all reviewed by myself. He continues to be on IV meropenem and IV fluconazole. He was given another dose of Lasix 40 mg IV today morning. No other significant change in the medications today as compared with yesterday. ASSESSMENT AND PLAN: 1. Acute peritonitis. The patient has received more than 1 week of antibiotics. His peritoneal fluid cell count is still high. Clinically is treatment failure. I am leaning more towards having his catheter removed. I will get the input from infectious disease as well. Clinically, the patient reports improvement in his symptoms and abdominal pain. However, cell count is persistently high. At this point, I will continue the IV meropenem and IV fluconazole, and he is getting intermittent of vancomycin as well. Check vancomycin level in the morning. 2. Acute diverticulitis. The patient is tolerating the regular diet now. Continue IV meropenem. Repeat CT scan done earlier over the weekend showed improvement in his sigmoid diverticulitis. 3. End-stage renal disease. The patient is getting all 2.5% exchanges and reports improvement in his ultrafiltration with peritoneal dialysis (PD) exchanges. 4. Cardiomyopathy. The patient will get another dose of Lasix 40 mg IV. Volume status is optimized. 5. Anemia in end-stage renal disease and iron deficiency. Continue Aranesp. IV iron is not being given because of acute infection. 6. Protein calorie malnutrition. Continue Nepro with meals every day.
[2020-02-22 10:05] LABS: CLOSTRIDIUM DIFFICILE PCR POSITIVE (NEGATIVE)
[2020-02-22] MEDS: CALCITRIOL 0.25 MCG CAP (S0169) PO SCH (10:58)
[2020-02-22] MEDS: METOPROLOL TART 50 MG TAB PO SCH ×2 (10:58→20:50)
[2020-02-22] MEDS: OMEPRAZOLE 20 MG CAP PO SCH ×2 (10:58→20:50)
[2020-02-22] MEDS: HEPARIN SOD (PORCINE) 5000UNITS/ML 1ML VIAL/SYRINGE SC SCH ×2 (10:59→20:51)
[2020-02-22] MEDS: VANCOMYCIN ORAL SOL 250MG/5ML ORAL SYRINGE PO SCH ×3 (12:46→23:42)
[2020-02-22] MEDS: MEROPENEM INJ 1 GM in IV 1 EA IV SCH (12:46)
[2020-02-22] MEDS: LACTOBACILLUS ACIDOPHILUS CAP (BACID) PO SCH (17:42)
[2020-02-22] MEDS: FLUCONAZOLE 100 MG in IV 1 EA IV SCH (17:42)
--- NOTE | 2020-02-22 17:56 | IPNPDOC ---
Date Seen The patient was seen on 02/22/20. Progress Note SUBJECTIVE: C. diff positive, started on PO vancomycin. States stools are loose and not watery currently. Stopped meropenem. peritoneal fluid WBC >5000, similar to last several days. Plan is to keep PD catheter in and reassess over the next several days need to take out. Fungal fluid studies still pending. Patient denies chest pain, increased shortness of breath, fevers, chills, nausea or vomiting. OBJECTIVE: VITAL SIGNS: Please see below PHYSICAL EXAMINATION: CONSTITUTIONAL: No acute distress, resting comfortably, AAO x 3 EYES: PERRLA, EOM intact HENT, MOUTH: Normocephalic, atraumatic, moist mucous membranes NECK: SUPPLE, no JVD, no lymphadenopathy, no carotid bruit CV: Regular rate and rhythm, S1S2 normal, no murmurs/rubs/gallops RESPIRATORY: Clear to auscultation bilaterally, no rales/rhonchi/wheezes GI: Distended abdomen, tender to palpation of umbilical area, 4/10 on pain scale. BS positive in 4 quadrants, no rebound or guarding, no organomegaly, multiple well healed scars on abdomen, peritoneal dialysis catheter in place : Deferred MUSCULOSKELETAL: Normal ROM. No cyanosis, clubbing, swelling, joint deformity, extremity edema INTEGUMENTARY: Intact, no rashes, no lesions, no erythema NEUROLOGIC: Cranial Nerves II-XII are intact, no focal deficits PSYCHIATRIC: Mood and affect are normal CURRENT MEDICATIONS: Please see below LABORATORY DATA: Please see below Microbiology: C. diff PCR: + BCx x 2 sets: NG at 72 hrs Peritoneal fluid GS and Cx 02/15/20: Few WBC, no organisms. Cx pending. Peritoneal fluid GS and Cx 02/16/20: Many WBC, no organisms. Cx NG Fungal cultures pending IMAGING: No new imaging. ASSESSMENT: 49 y/o M treated for C. difficile infection, acute diverticulitis, spontaneous bacterial peritonitis. PLAN: 1. Acute bacterial peritonitis likely 2/2 to peritoneal dialysis. Peritoneal fluid WBC 5266. Plan is to monitor fluid WBC daily and if not improved then will likely need to remove PD catheter. Discussed case with both Dr. Conti (surgery) and Dr. Seay. Fungal studies still pending. Stopping meropenem due to c. diff, c/w fluconazole 100 mg IV daily. ID following. 2. C. difficile infection. No colitis noticed on most recent CT done, now stools are loose vs. watery. 1 stool today. Afebrile, WBC wnl. Vancomycin PO QID x 2 weeks. ID consulted. 3. End-stage renal disease, peritoneal dialysis depended. Nephrology following. 4. Secondary hyperparathyroidism. C/w calcitriol 0.25 mcg by mouth daily. Acute diverticulitis. Repeat CT abd/pelvis showed significant improvment. Completed 10 days IV meropenem, no surgical indication. 5. Chronic systolic and diastolic heart failure. Not currently in exacerbation. C/w BB, ARB, 6. Hypokalemia. 3.3, supplemented.. F/u AM labs. 7. HTN. Stable. C/w metoprolol and losartan. 8. Anemia likely 2/2 to chronic disease and iron deficiency. C/w Aranesp with dialysis. 9. 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 He is listed for kidney and heart transplant. C/w metoprolol and losartan. 10. DVT px. Heparin. DISPOSITION: Currently inpatient status. Discussed the plan with the patient in detail today. Infectious disease, nephrology and general sugery consulted. Hopeful for discharge home when medically improved. VS, I&O, 24H, Fishbone Vital Signs/I&O Vital Signs Date Time Temp Pulse Resp B/P (MAP) Pulse Ox O2 Delivery O2 Flow Rate FiO2 02/22/20 10:58 89 135/83 02/22/20 06:00 98.7 20 98 Room Air I&O- Last 24 Hours up to 6 AM 02/22/20 06:00 Intake Total 7730 ml Output Total 7500 ml Balance 230 ml Laboratory Data 24H LABS Laboratory Tests 2 02/22/20 05:52: Immature Granulocyte % (Auto) 3.3H, Neutrophils (%) (Auto) 71.8H, Lymphocytes (%) (Auto) 15.5L, Monocytes (%) (Auto) 7.9H, Eosinophils (%) (Auto) 1.1, Basophils (%) (Auto) 0.4, Neutrophils # (Auto) 6.9, Lymphocytes # (Auto) 1.5, Monocytes # (Auto) 0.8, Eosinophils # (Auto) 0.1, Basophils # (Auto) 0.0, Nucleated Red Blood Cells % (auto) 0.7H, Anion Gap 5L, Glomerular Filtration Rate 8.9L, Calcium Level 8.3L, Phosphorus Level 4.0, Total Bilirubin 0.2, Aspartate Amino Transf (AST/SGOT) 34, Alanine Aminotransferase (ALT/SGPT) 51, Alkaline Phosphatase 77, Total Protein 5.1L, Albumin 1.6L, Albumin/Globulin Ratio 0.5, Random Vancomycin Level 18.7 02/22/20 06:00: Body Fluid Source PERITONEAL DIALYSATE, Body Fluid WBC (Auto) 5266H, Body Fluid RBC (Auto) < 2, Body Fluid Mononuclear Cells % Auto 18.3H, Fluid Polymorphonuclear Cell % Auto 81.7H, Peritoneal Fluid Color COLORLESS, Peritoneal Fluid Appearance CLEAR 02/22/20 07:00: Clostridium difficile [id number] PRESUMPTIVE NEGATIVE, Clostridium difficile Toxin (PCR) POSITIVEA CBC/BMP Laboratory Tests 02/22/20 05:52 Microbiology Microbiology 02/16/20 Gram Stain - Final, Complete 02/16/20 Body Fluid Culture - Final, Complete 02/15/20 Gram Stain - Final, Complete 02/15/20 Body Fluid Culture - Final, Complete 02/14/20 Acid Fast Stain, Received Pending 02/14/20 Mycobacterial Culture, Received Pending 02/14/20 Fungal Smear, Received Pending 02/14/20 Fungal Culture, Received Pending 02/14/20 Gram Stain - Final, Complete 02/14/20 Body Fluid Culture - Final, Complete 02/13/20 Blood Culture - Final, Complete NO GROWTH AFTER 5 DAYS 02/13/20 Blood Culture - Final, Complete NO GROWTH AFTER 5 DAYS 02/13/20 Blood Culture - Final, Complete NO GROWTH AFTER 5 DAYS Current Medications Current Medications Medications (Trade) Dose Ordered Sig/Marko Route PRN Reason Start Time Stop Time Status Last Admin Dose Admin Acetaminophen (Tylenol Tab) 650 mg Q4H PRN PO PAIN OR FEVER 02/13/20 15:15 02/20/20 12:07 Calcitriol (Rocaltrol) 0.25 mcg DAILY PO 02/14/20 09:00 02/22/20 10:58 Calcium Acetate (Phoslo) 667 mg WM PO 02/13/20 18:00 02/16/20 10:39 DC 02/15/20 18:21 Ciprofloxacin (Cipro) 250 mg BID PO 02/15/20 12:00 02/15/20 14:24 DC 02/15/20 12:34 Ciprofloxacin (Cipro) 250 mg BID@,18 PO 02/15/20 18:00 02/16/20 07:38 DC 02/16/20 06:10 Ciprofloxacin (Cipro) 500 mg DAILY@06 PO 02/15/20 12:00 02/15/20 11:28 DC Darbepoetin Ac (Aranesp) 200 mcg Th@0900 SC 02/18/20 09:00 02/18/20 13:21 Diatrizoate Meglum/ Diatrizoate Sod (Gastrografin) 10 ml Q30M PO 02/14/20 12:45 02/14/20 13:16 DC 02/14/20 13:15 Diatrizoate Meglum/ Diatrizoate Sod (Gastrografin) 10 ml Q30M PO 02/19/20 10:30 02/19/20 11:01 DC 02/19/20 11:21 Fluconazole 100 mg/IV Miscellaneous Supplies 50 ml @ 50 mls/hr Q24H IV 02/17/20 18:00 02/22/20 17:42 Heparin Sodium (Porcine) (Heparin) 5,000 units Q12H SC 02/13/20 21:00 02/22/20 10:59 Home Med (Med Rec Complete!) ASDIRECTED XX 02/13/20 15:45 02/13/20 15:58 DC Hydroxyzine HCl (Atarax) 25 mg BIDP PRN PO ITCHING 02/13/20 17:15 Iron 200 mg/ Sodium Chloride 110 ml @ 110 mls/hr DAILY IV 02/14/20 13:00 02/15/20 14:27 DC 02/15/20 09:29 Lactobacillus Acidophilus (Bacid) 1 ea BIDWM PO 02/22/20 18:00 02/22/20 17:42 Losartan Potassium (Cozaar) 50 mg QPM PO 02/13/20 21:00 02/21/20 21:58 Meropenem (Merrem) 1 gm Q24H XX 02/14/20 22:00 02/16/20 07:38 DC 02/15/20 22:15 Meropenem 1 gm/IV Miscellaneous Supplies 50 ml @ 100 mls/hr Q24H IV 02/14/20 16:00 02/13/20 18:41 DC Meropenem 1 gm/IV Miscellaneous Supplies 50 ml @ 100 mls/hr Q24H IV 02/16/20 12:00 02/22/20 13:48 DC 02/22/20 12:46 Metoprolol Tartrate (Lopressor) 50 mg BID PO 02/13/20 21:00 02/22/20 10:58 Metronidazole (Flagyl) 500 mg Q8H PO 02/15/20 12:00 02/15/20 14:24 DC 02/15/20 12:34 Metronidazole (Flagyl) 500 mg Q8H PO 02/15/20 22:00 02/16/20 07:38 DC 02/16/20 06:10 Morphine Sulfate (Morphine Sulfate Inj) 2 mg Q4H PRN IV MODERATE PAIN (PS 5-7) 02/16/20 08:15 02/18/20 12:58 Omeprazole (PriLOSEC) 40 mg BID PO 02/13/20 21:00 02/22/20 10:58 Ondansetron HCl (ZOFRAN INJection) 4 mg Q6HP PRN IV NAUSEA OR VOMITING 02/16/20 10:45 Polyethylene Glycol (Miralax) 1 pkt DAILYPRN PRN PO CONSTIPATION 02/19/20 15:45 Sucroferric Oxyhydroxide (Velphoro) 500 mg WM PO 02/13/20 18:00 02/15/20 14:27 DC 02/15/20 12:34 Vancomycin HCl (First-Vancomycin 50(Firvanq)- 250mg/5ml) 125 mg Q6H PO 02/22/20 12:00 02/22/20 17:42 Vitamin D (Drisdol) 50,000 units Luis@0900 PO 02/14/20 09:00 02/21/20 10:32 Allergies Coded Allergies: No Known Allergies (Unverified , 04/18/17) Missy Ascencio MD Feb 22, 2020 17:56
[2020-02-22] MEDS: LOSARTAN 50MG TABLET PO SCH (20:50)
[2020-02-22 22:00] VITALS: BP 135/83
--- NOTE | 2020-02-22 22:44 | IPN ---
DATE: 02/22/2020 INFECTIOUS DISEASE PROGRESS NOTE DATE OF SERVICE: 02/22/2020 Mr. Bassett is reluctant to have his peritoneal dialysis (PD) catheter removed. He feels much better. He had two soft stools this morning and stool was sent for Clostridium difficile (C diff) even though he does not describe them as watery. He denies any abdominal pain. No fever or chills. He feels better. He would like to see if treatment of the C difficile will make a difference in his peritoneal fluid. The peritoneal fluid is still described as cloudy. His last temperature was 3 days ago. LABORATORY DATA: Sodium 140, potassium 3.3, chloride 105, bicarbonate 30, BUN 34, creatinine 7, glucose 90, calcium 8.3, phosphorus 4, AST 34, ALT 51, alkaline phosphatase 77, total protein 5.1, albumin 1.6. White count 9.6, hemoglobin 8.4, hematocrit 26.3, platelets 268, 71% neutrophils, 15% lymphocytes, 7% monocytes. Blood cultures on 02/13/2020 times three sets were negative. Ascites fluid aerobically was only sent; on 02/14/2020 was negative, 15 and 16 since then no more cultures were sent. AFB fungal smear and culture only sent once. Peritoneal fluid: White cell count has dropped from 8000 to 5000 with 80% predominant neutrophils. CT abdomen and pelvis done on 02/19/2020 showed improvement of diverticulitis. On physical exam, temperature is 98.7, pulse 95, respirations 20, blood pressure 139/85, oxygen saturation (O2 sat) 98% on room air. Heart: Normal, S1, S2. No murmurs. Lungs are clear. No wheezes, rales or rhonchi. Abdomen is soft, nontender. No hepatosplenomegaly. Back: No costovertebral angle (CVA) tenderness. Peritoneal catheter in place without any redness or exit site infection. Extremities: No clubbing, cyanosis or edema. IMPRESSION: Peritonitis. I am not sure whether it is primary from PD catheter versus whether it was from diverticulitis. The patient he is reluctant about having his catheter removed and needing hemodialysis for the next 3 months and would like to wait. Clinically, he is stable and may be a possibility to follow up as an outpatient. Will have to discuss with Dr. Seay. Clostridium difficile. I suspect this is more colonization from broad-spectrum antibiotics. He has received antibiotics for at least 10 days and 20-40% of patients will become colonized in the hospital. He only had two bowel movements, and they are not watery. The patient has been started on oral vancomycin, and broad-spectrum antibiotics were discontinued. End-stage renal disease, on peritoneal dialysis. PLAN: Send another AFB fungal smear and culture tomorrow morning with repeat cell count, as well as anaerobic culture. Repeat CBC, CRP. Will discuss with Dr. Seay removal of catheter again tomorrow as the patient is reluctant about that.
[2020-02-23 06:00] VITALS: BP 126/79
[2020-02-23 06:14] LABS: BASO % 0.5 % (0.0-1.0); EOS # 0.1 10^3/uL (0.0-0.5); EOS % 1.4 % (0.0-3.0); HEMATOCRIT 25.8 % (42.0-52.0); HEMOGLOBIN 8.3 g/dl (13.5-17.5); LYMPH # 1.7 10^3/uL (1.5-5.0); LYMPH % 21.7 % (24.0-44.0); MEAN CORPUSCULAR HEMOGLOBIN 31.6 pg (27.0-33.0); MEAN CORPUSCULAR HGB CONC 32.2 g/dl (32.0-36.5); MEAN CORPUSCULAR VOLUME 98.1 fl (80.0-96.0); MONO # 0.7 10^3/uL (0.0-0.8); MONO % 9.2 % (0.0-5.0); NEUTROPHILS # 5.1 10^3/uL (1.5-8.5); NEUTROPHILS % 65.3 % (36.0-66.0); PLATELET COUNT, AUTOMATED 294 10^3/uL (150-450); RED BLOOD COUNT 2.63 10^6/uL (4.30-6.10); WHITE BLOOD COUNT 7.8 10^3/uL (4.0-10.0)
[2020-02-23] MEDS: VANCOMYCIN ORAL SOL 250MG/5ML ORAL SYRINGE PO SCH ×4 (06:19→23:47)
[2020-02-23 06:41] LABS: ALBUMIN 1.7 GM/DL (3.2-5.2); BILIRUBIN,TOTAL 0.2 MG/DL (0.2-1.0); C REACTIVE PROTEIN QUANTITATIV 1.26 MG/DL (0.00-0.30); CALCIUM LEVEL 8.4 MG/DL (8.5-10.1); CREATININE FOR GFR 6.73 MG/DL (0.70-1.30); GLOMERULAR FILTRATION RATE 9.4 (>60); PHOSPHORUS LEVEL 4.2 MG/DL (2.5-4.9); TOTAL PROTEIN 4.7 GM/DL (6.4-8.2)
[2020-02-23 07:27] LABS: APPEARANCE, BODY FLUID HAZY (CLEAR); PERITONEAL DIALYSATE FL COLOR COLORLESS (COLORLESS); SOURCE, BODY FLUID PERITONEAL DIALYSATE
[2020-02-23] MEDS ORDERED: FUROSEMIDE 40MG/4ML VIAL (J1940) IV ONE (07:45)
[2020-02-23] MEDS: OMEPRAZOLE 20 MG CAP PO SCH ×2 (09:39→20:38)
[2020-02-23] MEDS: LACTOBACILLUS ACIDOPHILUS CAP (BACID) PO SCH ×2 (09:39→17:26)
[2020-02-23] MEDS: CALCITRIOL 0.25 MCG CAP (S0169) PO SCH (09:39)
[2020-02-23] MEDS: HEPARIN SOD (PORCINE) 5000UNITS/ML 1ML VIAL/SYRINGE SC SCH ×2 (09:39→20:39)
[2020-02-23] MEDS: METOPROLOL TART 50 MG TAB PO SCH ×2 (09:39→20:39)
--- NOTE | 2020-02-23 09:56 | IPN ---
DATE OF SERVICE: 02/22/2020 SUBJECTIVE: The patient was seen and examined at the bedside today morning. The patient is afebrile, but he does have mild persistent abdominal pain. He does have persistent leukocytosis via peritoneal fluid cell count and more than 5000. The patient was having loose stool so stool Clostridium (C) difficile was sent. PCI came back positive. He has been started on oral vancomycin. He denies any problem with the peritoneal dialysis at this time. He does report stool is semi-formed still. He denies any watery diarrhea. OBJECTIVE: Vital signs: Temperature is 98.7 degrees Fahrenheit, blood pressure 139/85, pulse is 95, respiratory rate of 20, saturating 98% on room air. Intake and output. There is no urine output recorded. Ultrafiltration with peritoneal dialysis is around the 200 mL per exchange. Weight in the bed scale is 89 kg. PHYSICAL EXAMINATION: General: The patient is awake, alert, oriented times three, laying in bed in no apparent distress. Head and neck examination: Extraocular muscles intact. He is wearing the hearing aids. Neck is supple. No jugular venous distention (JVD). Cardiovascular: S1, S2, regular rate. No edema of the bilateral lower extremities. Respiratory: Chest is clear to auscultation bilaterally. Bilateral equal air entry. No rales or rhonchi. Abdomen: Soft, mildly tender to deep palpation in suprapubic region, right lower quadrant, and left lower quadrant. He has left upper quadrant peritoneal dialysis catheter. Exit site is clean. Genitourinary: Bladder is nonpalpable. Musculoskeletal: No clubbing or cyanosis. Pulses are 2+. Central nervous system ([employer]): No focal deficit apart from the patient being hard of hearing. LABORATORY REVIEW: Complete blood count (CBC) showed a WBC of 9.6, hemoglobin 8.4, platelets are 268. Peritoneal fluid cell count done today morning showed WBC 5266, more than 81% were polymorphonuclear. Basic metabolic profile (BMP) done today morning showed sodium 140, potassium 3.3, chloride 105, bicarbonate 30, BUN 34, creatinine is 7, calcium 8.3, phosphorus is 4, albumin 1.6. Vancomycin level done today morning is 18.7. MICROBIOLOGY: All the cultures are negative so far. CURRENT INPATIENT MEDICATIONS: The patient's medications were all reviewed by me. He continues to be on intravenous (IV) fluconazole. He got a dose of meropenem today. IV meropenem has been stopped. He has been started on oral vancomycin 125 mg by mouth every 6 hours. ASSESSMENT AND PLAN: 1. Acute peritonitis. The patient has culture negative peritonitis. Today is day #9 of inpatient antibiotics. He is getting intermittent doses of vancomycin, IV meropenem, and IV fluconazole. All the cultures are negative. Peritoneal fluid cell count is not improving. I recommended the patient to have the peritoneal dialysis catheter removed. This technically is treatment failure after more than 5 days of antibiotics. However, the patient wants to give himself one more day, and he wants to see if oral vancomycin is going to help him with peritonitis, which I really doubt. However, by tomorrow morning, if peritoneal fluid cell count is not improving, I am going to have surgical service on board to have his peritoneal dialysis catheter removed. 2. Acute diverticulitis. It is significantly better on the repeat CAT scan. The patient has received adequate antibiotic, include meropenem and vancomycin. He actually has a positive C. difficile, which I think is a colonization. However, he is still being treated with oral vancomycin since he is on broad-spectrum antibiotics. 3. End-stage renal disease. The patient is currently getting five manual exchanges every day. However, I strongly believe his peritoneal dialysis catheter needs to come out. He will need a tunneled dialysis catheter to switch to hemodialysis; and if his peritonitis gets better, hopefully in the next 4-6 weeks, we can get another peritoneal dialysis catheter placed as outpatient. 4. Cardiomyopathy. The patient's volume status is being optimized with peritoneal dialysis. I am going to give him another dose of IV Lasix today. 5. Anemia in end-stage renal disease and iron deficiency. Continue Aranesp. IV iron was not given because of diverticulitis and acute peritonitis. Oral iron is not being given because of abdominal pain at this time. 6. Protein-calorie malnutrition. Continue Nepro with meals. DISPOSITION: The patient is not stable to be discharged at this time. He still has ongoing peritonitis, which has not resolved. Plan of care was discussed with infectious disease and with the hospitalist team, as well.
[2020-02-23] MEDS: ACETAMINOPHEN TAB 650MG DOSE (2X325MG) PO PRN (12:23)
--- NOTE | 2020-02-23 14:00 | IPNPDOC ---
Subjective Date Seen The patient was seen on 02/23/20. Subjective Chief Complaint/HPI Patient is comfortable, feels much better, afebrile. Wishes to go home General: Denies: ROS Unobtainable, Chills, Night Sweats, Fatigue, Malaise, Normal Appetite, Other Symptoms Constitutional: Denies: Chills, Fever, Malaise, Night Sweats, Weakness, Fatigue, Weight Loss, Lethargy, Other Pulmonary: Denies: Dyspnea, Cough, Pleuritic Chest Pain, Other Symptoms Cardiovascular: Denies: Chest Pain, Palpitations, Orthopnea, Paroxysmal Noc. Dyspnea, Edema, Lt Headedness, Other Symptoms Gastrointestinal: Denies: Nausea, Vomiting, Abdominal Pain, Diarrhea, Constipation, Melena, Hematochezia, Other Symptoms Genitourinary: Denies: Dysuria, Frequency, Incontinence, Hematuria, Retention, Other Symptoms Musculoskeletal: Denies: Neck Pain, Back Pain, Shoulder Pain, Arm Pain, Hand Pain, Leg Pain, Foot Pain, Joint Pain, Muscle Pain, Spasms, Other Symptoms Neurological: Denies: Weakness, Numbness, Incoordination, Change in speech, Confusion, Seizures, Other Symptoms Objective Physical Examination General Exam: Positive: Alert, Cooperative Eye Exam: Positive: PERRLA, Conjunctiva & lids normal ENT Exam: Positive: Atraumatic, Mucous membr. moist/pink Chest Exam: Positive: Clear to auscultation, Normal air movement Heart Exam: Positive: Rate Normal, Normal S1, Normal S2 Abdomen Exam: Positive: Normal bowel sounds, Soft Extremity Exam: Positive: Normal pulses Skin Exam: Positive: Nl turgor and temperature Neuro Exam: Positive: Strength at 5/5 X4 ext, Cranial Nerves 3-12 NL Assessment /Plan Problems (1) ESRD (end stage renal disease) on dialysis Status: Acute Problem Text: End-stage renal disease, peritoneal dialysis depended. Nephrology follow-up appreciated Patient probably be discharged home tomorrow on peritoneal dialysis as he is clinically stable now Other as per nephrology's recommendations (2) Peritonitis Status: Acute Problem Text: Acute bacterial peritonitis likely 2/2 to peritoneal dialysis. Peritoneal fluid WBC 5266. Plan is to monitor fluid WBC daily and if not im proved then will likely need to remove PD catheter. Discussed case with both Dr. Conti (surgery) and Dr. Seay. Fungal studies still pending. Stopping meropenem due to c. diff, c/w fluconazole 100 mg IV daily. ID following. (3) HTN (hypertension) Status: Chronic Problem Text: Continue present meds (4) Clostridioides difficile infection Status: Acute Problem Text: C. difficile infection. No colitis noticed on most recent CT done, now stools are loose vs. watery. 1 stool today. Afebrile, WBC wnl. Vancomycin PO QID x 2 weeks. ID follow-up appreciated Continue by mouth vancomycin Plan/VTE VTE Prophylaxis Ordered?: Yes VS, I&O, 24H, Fishbone Vital Signs/I&O Vital Signs Date Time Temp Pulse Resp B/P (MAP) Pulse Ox O2 Delivery O2 Flow Rate FiO2 02/23/20 09:39 92 134/85 02/23/20 06:00 97.4 20 98 02/22/20 06:00 Room Air l I&O- Last 24 Hours up to 6 AM 02/23/20 06:00 Intake Total 7710 ml Output Total 6450 ml Balance 1260 ml Laboratory Data 24H LABS Laboratory Tests 2 02/23/20 05:53: Immature Granulocyte % (Auto) 1.9, Neutrophils (%) (Auto) 65.3, Lymphocytes (%) (Auto) 21.7L, Monocytes (%) (Auto) 9.2H, Eosinophils (%) (Auto) 1.4, Basophils (%) (Auto) 0.5, Neutrophils # (Auto) 5.1, Lymphocytes # (Auto) 1.7, Monocytes # (Auto) 0.7, Eosinophils # (Auto) 0.1, Basophils # (Auto) 0.0, Nucleated Red Blood Cells % (auto) 0.6H, Anion Gap 5L, Glomerular Filtration Rate 9.4L, Calcium Level 8.4L, Phosphorus Level 4.2, Total Bilirubin 0.2, Aspartate Amino Transf (AST/SGOT) 38H, Alanine Aminotransferase (ALT/SGPT) 58, Alkaline Phosp hatase 80, C-Reactive Protein, Quantitative 1.26H, Total Protein 4.7L, Albumin 1.7L, Albumin/Globulin Ratio 0.6 02/23/20 06:45: Body Fluid Source PERITONEAL DIALYSATE, Body Fluid WBC (Auto) 1687H, Body Fluid RBC (Auto) < 2, Body Fluid Mononuclear Cells % Auto 35.7H, Fluid Polymo rphonuclear Cell % Auto 64.3H, Peritoneal Fluid Color COLORLESS, Peritoneal Fluid Appearance HAZY CBC/BMP Laboratory Tests 02/23/20 05:53 Microbiology Microbiology 02/23/20 Acid Fast Stain, Received Pending 02/23/20 Mycobacterial Culture, Received Pending 02/23/20 Fungal Smear, Received Pending 02/23/20 Fungal Culture, Received Pending 02/23/20 Gram Stain - Final, Resulted 02/23/20 Body Fluid Culture, Resulted Pending 02/23/20 Anaerobic Culture, Resulted Pending 02/16/20 Gram Stain - Final, Complete 02/16/20 Body Fluid Culture - Final, Complete 02/15/20 Gram Stain - Final, Complete 02/15/20 Body Fluid Culture - Final, Complete 02/14/20 Acid Fast Stain, Received Pending 02/14/20 Mycobacterial Culture, Received Pending 02/14/20 Fungal Smear, Received Pending 02/14/20 Fungal Culture, Received Pending 02/14/20 Gram Stain - Final, Complete 02/14/20 Body Fluid Culture - Final, Complete 02/13/20 Blood Culture - Final, Complete NO GROWTH AFTER 5 DAYS 02/13/20 Blood Culture - Final, Complete NO GROWTH AFTER 5 DAYS 02/13/20 Blood Culture - Final, Complete NO GROWTH AFTER 5 DAYS RIVAS BRIGGS MD Feb 23, 2020 14:00
[2020-02-23] MEDS: FLUCONAZOLE 100 MG in IV 1 EA IV SCH (17:26)
[2020-02-23 18:06] VITALS: BP 136/85
[2020-02-23] MEDS: LOSARTAN 50MG TABLET PO SCH (20:39)
[2020-02-23 22:00] VITALS: BP 120/68
[2020-02-24 06:00] VITALS: BP 133/88
[2020-02-24] MEDS: VANCOMYCIN ORAL SOL 250MG/5ML ORAL SYRINGE PO SCH ×2 (06:00→11:26)
[2020-02-24 06:55] LABS: APPEARANCE, BODY FLUID HAZY (CLEAR); PERITONEAL DIALYSATE FL COLOR COLORLESS (COLORLESS); SOURCE, BODY FLUID PERITONEAL DIALYSATE
[2020-02-24 07:50] LABS: BASO % 0.6 % (0.0-1.0); EOS # 0.1 10^3/uL (0.0-0.5); EOS % 1.7 % (0.0-3.0); HEMATOCRIT 26.9 % (42.0-52.0); HEMOGLOBIN 8.3 g/dl (13.5-17.5); LYMPH # 1.3 10^3/uL (1.5-5.0); LYMPH % 19.1 % (24.0-44.0); MEAN CORPUSCULAR HEMOGLOBIN 30.9 pg (27.0-33.0); MEAN CORPUSCULAR HGB CONC 30.9 g/dl (32.0-36.5); MONO # 0.6 10^3/uL (0.0-0.8); MONO % 8.5 % (0.0-5.0); NEUTROPHILS # 4.8 10^3/uL (1.5-8.5); NEUTROPHILS % 68.7 % (36.0-66.0); PLATELET COUNT, AUTOMATED 285 10^3/uL (150-450); RED BLOOD COUNT 2.69 10^6/uL (4.30-6.10)
[2020-02-24 08:08] LABS: ALBUMIN 1.8 GM/DL (3.2-5.2); BILIRUBIN,TOTAL 0.1 MG/DL (0.2-1.0); CALCIUM LEVEL 8.4 MG/DL (8.5-10.1); CREATININE FOR GFR 6.49 MG/DL (0.70-1.30); GLOMERULAR FILTRATION RATE 9.8 (>60); PHOSPHORUS LEVEL 3.7 MG/DL (2.5-4.9); POTASSIUM SERUM 4.1 MEQ/L (3.5-5.1); TOTAL PROTEIN 4.6 GM/DL (6.4-8.2)
--- NOTE | 2020-02-24 09:18 | IPN ---
DATE OF SERVICE: 02/23/2020 SUBJECTIVE: The patient was seen and examined at the bedside today morning. He was started on oral vancomycin yesterday because of positive Clostridium (C) difficile in the stool. IV antibiotics were stopped yesterday. However, he had already received IV meropenem when antibiotic was stopped. He reports that his stools are getting more formed. He reports improvement in the abdominal pain. Peritoneal fluid cell count is also getting better. It came down from more than 5000 to 1687 today. OBJECTIVE: VITAL SIGNS: Temperature is 97.4 degrees Fahrenheit, blood pressure 126/79, pulse is 68, respiratory rate of 20, saturating 98% on room air. INTAKE/OUTPUT: Urine output recorded since overnight is 2.1 liters. Weight in the bed scale is 89.8 kg. PHYSICAL EXAMINATION: GENERAL: The patient is awake, alert, oriented times three, sitting up in the bed. He is hard of hearing wearing hearing aids. Pupils are equally round and reactive to light. Mucous membranes are moist. NECK: Is supple. There is no jugular venous distention (JVD). CARDIOVASCULAR: S1, S2, regular rate. No edema of the bilateral lower extremities. RESPIRATORY: Chest is clear to auscultation bilaterally. Bilateral equal air entry. No rales or rhonchi. ABDOMEN: Soft. Positive bowel sounds. Very mild tenderness to deep palpation in the left lower quadrant and right lower quadrant. Left upper quadrant peritoneal dialysis catheter is nontender with no signs of tunnel infection. GENITOURINARY: Bladder is not palpable. MUSCULOSKELETAL: No clubbing or cyanosis. Pulses are 2+. CENTRAL NERVOUS SYSTEM (ACUTE CARE REGISTERED NURSE): No focal deficit apart from the patient being hard of hearing. LAB REVIEW: Complete blood count (CBC) showed WBC 7.8, hemoglobin 8.3, platelets are 294. Peritoneal fluid cell count is 1687 with 64% polymorphonuclear. Basic metabolic panel (BMP) showed sodium 142, potassium 4, chloride 106, bicarbonate 31, BUN 34, creatinine is 6.7, calcium 8.4, phosphorus is 4.2, total bilirubin 0.2, AST 38, ALT is 58, alkaline phosphatase is 80, C-reactive protein is 1.26, albumin is 1.7. CURRENT INPATIENT MEDICATIONS: The patient's medications were all reviewed by myself. He continues to be on IV fluconazole. IV meropenem was stopped yesterday, and he is currently on oral vancomycin. ASSESSMENT/PLAN: 1. Acute peritonitis. His cell count has significantly dropped today. He got the IV meropenem yesterday. However, he was also started on oral vancomycin. At this point, I would continue the treatment of C diff colitis. IV antibiotics have been discontinued. Continue the IV fluconazole. I would hold off on removal of peritoneal dialysis catheter since there is a more than 50% drop in the peritoneal fluid cell count since yesterday. 2. Acute diverticulitis. It has improved. The patient is currently on C diff colitis treatment. Continue oral vancomycin. 3. End-stage renal disease. Continue the peritoneal dialysis at this time. The patient is very reluctant to have his catheter removed. Continue treatment of C diff colitis. Continue five manual exchanges all 1300 mL and 2.5%. 4. Cardiomyopathy. The patient was given another dose of IV Lasix 40 mg. Rest of the fluid management is being done with peritoneal dialysis. 5. Anemia secondary to end-stage renal disease and iron deficiency. The patient is status post one dose of IV iron. Rest of the dosages were stopped because of persistent infection. Continue current dose of Aranesp. 6. Protein calorie malnutrition. Continue current dose of Nepro. DISPOSITION: The patient is not stable enough to be discharged at this point. I want to see persistent improving trend in his peritoneal fluid cell count before he can be discharged home.
[2020-02-24] MEDS ORDERED: FLUC10TA PO (09:47)
[2020-02-24] MEDS ORDERED: RISATAB3 PO (09:47)
[2020-02-24] MEDS ORDERED: FIRV50SO PO (09:47)
[2020-02-24 10:00] VITALS: BP 138/84
[2020-02-24] MEDS: HEPARIN SOD (PORCINE) 5000UNITS/ML 1ML VIAL/SYRINGE SC SCH (10:01)
[2020-02-24] MEDS: OMEPRAZOLE 20 MG CAP PO SCH (10:01)
[2020-02-24] MEDS: LACTOBACILLUS ACIDOPHILUS CAP (BACID) PO SCH (10:01)
[2020-02-24] MEDS: CALCITRIOL 0.25 MCG CAP (S0169) PO SCH (10:01)
[2020-02-24 10:04] VITALS: BP 135/87
[2020-02-24] MEDS: METOPROLOL TART 50 MG TAB PO SCH (10:04)
[2020-02-24] MEDS ORDERED: VANC1CAP6 PO (10:48)
--- NOTE | 2020-02-24 12:02 | DS.PDOC ---
Discharge Summary General Date of Admission Feb 13, 2020 at 15:11 Date of Discharge 02/24/20 Discharge Summary PROCEDURES PERFORMED DURING STAY: None. ADMITTING DIAGNOSES: 1. . Acute peritonitis DISCHARGE DIAGNOSES: 1. Acute peritonitis, end-stage renal disease on peritoneal dialysis, C. difficile infection, hypertension COMPLICATIONS/CHIEF COMPLAINT: Peritonitis. HISTORY OF PRESENT ILLNESS: This is a 49 year old gentleman who presented with complaints of abdominal pain. Initially the abdominal pain was diffuse, but now it's localized to the lower abdomen. The pain is sharp in nature , constant, and ranges from 1 /10 up to 12/10 in severity and is associated with chills. He denies having associated fevers. He was started on vancomycin and gentamicin for peritonitis and finished his course of antibiotics on . He is on peritoneal dialysis and feels that the pain is worse during his PD sessions.. HOSPITAL COURSE: End-stage renal disease, peritoneal dialysis depended. Nephrology follow-up appreciated Patient is renal function has improved and WBC count in peritoneal fluid has significantly decreased to about 800 today Discussed with , she is asymptomatic. No abdominal pain. Tolerating oral feeding. WBC going down in bed, tenderness, slurred and it and blood work. Also renal function improving. Patient will be discharged home on patent and dialysis and follow with Dr. Perla one week as outpatient Acute bacterial peritonitis likely 2/2 to peritoneal dialysis. Peritoneal fluid WBC 5266. Plan is to monitor fluid WBC daily and if not improved then will likely need to remove PD catheter. Discussed case with both Dr. Conti (surgery) and Dr. Seay. Fungal studies still pending. Stopping meropenem due to c. diff, c/w fluconazole 100 mg and continue by mouth vancomycin as per nephrology recommendation Hypertension under well control with home meds C. difficile infection. No colitis noticed on most recent CT done, now stools are loose vs. watery. 1 stool today. Afebrile, WBC wnl. Vancomycin PO QID x 2 weeks. Further follow with PCP and nephrology in one week. DISCHARGE MEDICATIONS: Please see below. ALLERGIES: Please see below. PHYSICAL EXAMINATION ON DISCHARGE: VITAL SIGNS: Please see below. GENERAL: Within normal limits HEENT: PERRLA. Extraocular muscles intact NECK: Supple CARDIOVASCULAR EXAMINATION: S1, S2, regular RESPIRATORY EXAMINATION: Clear to A&P ABDOMINAL EXAMINATION: Benign EXTREMITIES: No clubbing, cyanosis, edema SKIN: Normal NEUROLOGICAL EXAMINATION: . No focal motor sensory deficit PSYCHIATRIC EXAMINATION: Normal LABORATORY DATA: Please see below. IMAGING: CT abdomen and pelvis:IMPRESSION: 1. Significant improvement in the diverticulitis seen previously. 2. Free fluid as described above. PROGNOSIS: Good ACTIVITY: As tolerated. DIET: As tolerated DISCHARGE PLAN: Discharge home DISPOSITION: Home. DISCHARGE INSTRUCTIONS: 1. As per discharge instructions. ITEMS TO FOLLOWUP ON ON OUTPATIENT: 1. Follow-up with Dr. Seay in one week for PD. DISCHARGE CONDITION: Stable. TIME SPENT ON DISCHARGE: 37 minutes. Vital Signs/I&Os Vital Signs Date Time Temp Pulse Resp B/P (MAP) Pulse Ox O2 Delivery O2 Flow Rate FiO2 02/24/20 10:04 92 135/87 02/24/20 10:00 99.1 18 99 Room Air I&O- Last 24 Hours up to 6 AM 02/24/20 06:00 Intake Total 7600 ml Output Total 8650 ml Balance -1050 ml Laboratory Data Labs 24H Laboratory Tests 2 02/24/20 06:15: Body Fluid Source PERITONEAL DIALYSATE, Body Fluid WBC (Auto) 792H, Body Fluid RBC (Auto) < 2, Body Fluid Mononuclear Cells % Auto 36.5H, Fluid Polymorphonuclear Cell % Auto 63.5H, Peritoneal Fluid Color COLORLESS, Peritoneal Fluid Appearance HAZY 02/24/20 07:27: Immature Granulocyte % (Auto) 1.4, Neutrophils (%) (Auto) 68.7H, Lymphocytes (%) (Auto) 19.1L, Monocytes (%) (Auto) 8.5H, Eosinophils (%) (Auto) 1.7, Basophils (%) (Auto) 0.6, Neutrophils # (Auto) 4.8, Lymphocytes # (Auto) 1.3L, Monocytes # (Auto) 0.6, Eosinophils # (Auto) 0.1, Basophils # (Auto) 0.0, Nucleated Red Blo od Cells % (auto) 0.7H, Anion Gap 6L, Glomerular Filtration Rate 9.8L, Calcium Level 8.4L, Phosphorus Level 3.7, Total Bilirubin 0.1L, Aspartate Amino Transf (AST/SGOT) 31, Alanine Aminotransferase (ALT/SGPT) 54, Alkaline Phosphatase 76, Total Protein 4.6L, Albumin 1.8L, Albumin/Globulin Ratio 0.6 CBC/BMP Laboratory Tests 02/24/20 07:27 Microbiology Microbiology 02/23/20 Acid Fast Stain, Received Pending 02/23/20 Mycobacterial Culture, Received Pending 02/23/20 Fungal Smear, Received Pending 02/23/20 Fungal Culture, Received Pending 02/23/20 Gram Stain - Final, Resulted 02/23/20 Body Fluid Culture, Resulted Pending 02/23/20 Anaerobic Culture, Resulted Pending 02/16/20 Gram Stain - Final, Complete 02/16/20 Body Fluid Culture - Final, Complete 02/15/20 Gram Stain - Final, Complete 02/15/20 Body Fluid Culture - Final, Complete 02/14/20 Acid Fast Stain, Received Pending 02/14/20 Mycobacterial Culture, Received Pending 02/14/20 Fungal Smear, Received Pending 02/14/20 Fungal Culture, Received Pending 02/14/20 Gram Stain - Final, Complete 02/14/20 Body Fluid Culture - Final, Complete Discharge Medications Scheduled Calcitriol (Calcitriol) 0.25 Mcg Capsule, 0.25 MCG PO DAILY, (Reported) Calcium Acetate (Calcium Acetate) 667 Mg Capsule, 667 MG PO WM, (Reported) Ergocalciferol (Vitamin D2) (Vitamin D2) 50,000 Units Cap, 50,000 UNITS PO QWEEK, (Reported) TAKES ON SUNDAYS Evolocumab (Repatha Sureclick) 140 Mg/1 Ml Pen.injctr, 1 ML IM Q2WK, (Reported) Fluconazole (Diflucan) 100 Mg Tablet, 100 MG PO DAILY for yeast infection L.acidoph/L.bulg/B.bif/S.therm (Jesenia-Bid Caplet) 1 Each Tablet, 1 EA PO BIDWM Losartan Potassium (Losartan Potassium) 50 Mg Tablet, 50 MG PO QPM, (Reported) Metoprolol Tartrate (Metoprolol Tartrate) 50 Mg Tablet, 50 MG PO BID, (Reported) Omeprazole (Omeprazole) 40 Mg Cap, 40 MG PO BID, (Reported) Sucroferric Oxyhydroxide (Velphoro) 500 Mg Tab.chew, 500 MG PO WM, (Reported) Ubidecarenone (Co Q-10) 200 Mg Capsule, 200 MG PO DAILY, (Reported) Vancomycin HCl (Vancocin HCl) 125 Mg Capsule, 1 CAP PO QID Vit B Comp No.3/Folic/C/Biotin (Shila-Galdino Rx Tablet) 1 Each Tablet, 1 TAB PO DAILY, (Reported) Scheduled PRN Hydroxyzine HCl (Hydroxyzine HCl) 25 Mg Tablet, 25 MG PO BIDP PRN for ITCHING, (Reported) Allergies Coded Allergies: No Known Allergies (Unverified , 04/18/17) RIVAS BRIGGS MD Feb 24, 2020 12:02
--- NOTE | 2020-02-25 10:12 | IPN ---
DATE OF SERVICE: 02/24/2020 SUBJECTIVE: The patient was seen and examined at the bedside today morning. He is afebrile, hemodynamically stable. He reports that his abdominal pain is getting better. His diarrhea is improving and he is making formed stools. Peritoneal fluid cell count is improving. It came down from 1687 to 792. The patient is feeling much better and he is willing to go home now. OBJECTIVE: VITAL SIGNS: Temperature is 99.1 degrees Fahrenheit. Blood pressure 138/84. Pulse is 95. Respiratory rate of 18, saturating 99% on room air. INTAKE/OUTPUT: Urine output recorded is 2.1 liters yesterday, 600 mL so far today since overnight. Weight in the bed scale is 88.3 kg. PHYSICAL EXAMINATION: GENERAL: The patient is awake, alert, oriented times three, laying in bed, in no apparent distress. HEAD/NECK EXAM: Extraocular muscles intact. Pupils equally round and reactive to light. Mucous membranes are moist. Neck is supple. There is no jugular venous distention (JVD). CARDIOVASCULAR: S1, S2, regular rate. No edema of the bilateral lower extremities. RESPIRATORY: Chest is clear to auscultation bilaterally. Bilateral equal air entry. No rales or rhonchi. ABDOMEN: Soft. Left upper quadrant peritoneal dialysis catheter exit site is clean. The patient has very little tenderness in the left lower quadrant, the right lower quadrant. GENITOURINARY: Bladder is not palpable. MUSCULOSKELETAL: No clubbing or cyanosis. Pulses are 2+. CENTRAL NERVOUS SYSTEM (SENIOR ANALYTICAL CHEMIST): No focal deficit. The patient is hard of hearing. LAB REVIEW: Complete blood count (CBC) showed WBC of 7, hemoglobin 8.3, platelets are 285. Peritoneal fluid cell count is 792 with 63% polymorphonuclear. Basic metabolic panel (BMP) done today morning showed sodium 142, potassium 4.1, chloride 105, bicarbonate 31, BUN 37, creatinine is 6.4, calcium 8.4, phosphorus is 3.7. CURRENT INPATIENT MEDICATIONS: The patient's medications were all reviewed by myself. He continues to be on IV fluconazole. IV antibiotics have been stopped. He continues to be on oral vancomycin. ASSESSMENT/PLAN: 1. Acute peritonitis. The patient was initially treated with intraperitoneal vancomycin and IV meropenem. However, later on because of persistent white cell count and loose stools his Clostridium (C) difficile was checked and C diff came back positive. IV antibiotics were stopped and he is currently on oral vancomycin. Peritoneal fluid cell count continues to improve. The patient will be discharged on oral vancomycin. He is symptomatically getting better. 2. Acute diverticulitis. It has resolved with IV meropenem and now he is getting oral vancomycin for C diff colitis. 3. End-stage renal disease. The patient continues to be on peritoneal dialysis. No need of peritoneal dialysis catheter removal since white cell count is getting better. He can start his home cycler therapy when he goes home. 4. Cardiomyopathy. Volume status is optimized with peritoneal dialysis. He is not on regular diuretics as outpatient. 5. Anemia secondary to end-stage renal disease and iron deficiency. If needed, the patient will be given IV iron as outpatient. I am reluctant to give him IV iron at this time since infection is resolving. 6. Protein calorie malnutrition. The patient advised higher protein intake at home. DISPOSITION: The patient is optimized from nephrology standpoint to be discharged home. He can be discharged on a full course of C diff colitis treatment. He will be followed up in the home peritoneal dialysis (PD) center this Saturday and we shall repeat peritoneal fluid cell count and culture. I have already called the center and informed them.
== END 2020-02-24 11:30 | disposition home or self-care (01) | DRG 867 ==
LOC: M ED 10:54 → M ED INP 15:11 → ENRESERV 15:53 → M MSPAV 17:11
PROVIDERS: ADMIT Internal Medicine; ATTEND Internal Medicine
DX: T80.29XA Infection following other infusion, transfusion and therapeutic injection, initial encounter (principal); K65.0 Generalized (acute) peritonitis; N18.6 End stage renal disease; I50.42 Chronic combined systolic (congestive) and diastolic (congestive) heart failure; N25.81 Secondary hyperparathyroidism of renal origin; Q87.81 Alport syndrome; I42.9 Cardiomyopathy, unspecified; K57.32 Diverticulitis of large intestine without perforation or abscess without bleeding; E46 Unspecified protein-calorie malnutrition; A04.72 Enterocolitis due to Clostridium difficile, not specified as recurrent; I12.0 Hypertensive chronic kidney disease with stage 5 chronic kidney disease or end stage renal disease; Z79.899 Other long term (current) drug therapy; K21.9 Gastro-esophageal reflux disease without esophagitis; I27.20 Pulmonary hypertension, unspecified; D50.9 Iron deficiency anemia, unspecified; D63.1 Anemia in chronic kidney disease; E87.6 Hypokalemia; Y83.8 Other surgical procedures as the cause of abnormal reaction of the patient, or of later complication, without mention of misadventure at the time of the procedure

== ENCOUNTER → 2020-05-30 | Outpatient (REF) | payer MEDICARE ==
[~2020-05-30] MED LIST changes: +CALC1CAP PO; +CALC1CAP31 PO; +CIPR-250 PO; +CO Q1CAP2 PO; +ENTR1TAB; +FIRV50SO PO; +FLAG500T PO; +FLUC10TA PO; +HYDR-3363 PO; +LOSA50TA88 PO; +METO50TA7 PO; +RENATAB6 PO; +REPA140I2 IM; +RISATAB3 PO; +VANC1CAP6 PO; +VELP5CHW PO; +VITA50005 PO
[2020-05-30 19:22] LABS: CLOSTRIDIUM DIFFICILE PCR NEGATIVE (NEGATIVE)
== END ==
LOC: M LAB REF 17:25
PROVIDERS: ATTEND Internal Medicine Nephrology
DX: A04.72 Enterocolitis due to Clostridium difficile, not specified as recurrent (principal); I50.42 Chronic combined systolic (congestive) and diastolic (congestive) heart failure; Z99.2 Dependence on renal dialysis

== ENCOUNTER 2021-02-09 17:18 | Emergency (ER) | payer MEDICARE ==
[~2021-02-09] VITALS: Ht 172.7 cm; Wt 81.7 kg
[2021-02-09] MEDS ORDERED: TORS20TA2 PO (17:54)
[2021-02-09] MEDS ORDERED: VELP5CHW PO (17:54)
[2021-02-09] MEDS ORDERED: ROPI0.5T3 PO (17:54)
[2021-02-09] MEDS ORDERED: heparin (17:54)
[2021-02-09] MEDS ORDERED: SEVE800T3 PO (17:54)
[2021-02-09] MEDS ORDERED: SARNLOT TP (17:54)
--- NOTE | 2021-02-09 17:57 | REP ---
INDICATION: CHEST PAIN. COMPARISON: 02/13/2020 the latest prior a PA and lateral exam TECHNIQUE: Portable FINDINGS: The technique utilized in obtaining the radiograph has magnified the cardiac silhouette and accentuated the interstitial markings. Once again, there is cardiomegaly, accentuated by technique on today's exam. The multilead pacemaker device is unchanged. The lung whitt are clear and stable. The pleural angles are sharp. The osseous structures are stable and intact. IMPRESSION: Cardiomegaly without evidence of acute cardiopulmonary disease. <Electronically signed by Gordon Santana > 02/09/21 [id number]
[2021-02-09 18:07] LABS: BASO % 0.4 % (0.0-1.0); EOS # 0.2 10^3/uL (0.0-0.5); EOS % 2.2 % (0.0-3.0); HEMATOCRIT 29.5 % (42.0-52.0); HEMOGLOBIN 9.6 g/dl (13.5-17.5); LYMPH # 1.8 10^3/uL (1.5-5.0); LYMPH % 24.5 % (24.0-44.0); MEAN CORPUSCULAR HEMOGLOBIN 30.8 pg (27.0-33.0); MEAN CORPUSCULAR HGB CONC 32.5 g/dl (32.0-36.5); MEAN CORPUSCULAR VOLUME 94.6 fl (80.0-96.0); MONO # 0.7 10^3/uL (0.0-0.8); MONO % 9.5 % (2.0-8.0); NEUTROPHILS # 4.5 10^3/uL (1.5-8.5); PLATELET COUNT, AUTOMATED 222 10^3/uL (150-450); RED BLOOD COUNT 3.12 10^6/uL (4.30-6.10); WHITE BLOOD COUNT 7.1 10^3/uL (4.0-10.0)
[2021-02-09 18:41] LABS: ALBUMIN 3.3 GM/DL (3.2-5.2); ALT/SGPT 36 U/L (12-78); BILIRUBIN,DIRECT 0.1 MG/DL (0.0-0.2); BILIRUBIN,TOTAL 0.3 MG/DL (0.2-1.0); BLOOD UREA NITROGEN 120 MG/DL (7-18); CALCIUM LEVEL 9.1 MG/DL (8.5-10.1); CARBON DIOXIDE LEVEL 25 MEQ/L (21-32); CHLORIDE LEVEL 101 MEQ/L (98-107); CK-MB VALUE MASS < 1.0 NG/ML (<3.6); CPK CREATINE PHOSPHOKINASE 75 U/L (39-308); GLOMERULAR FILTRATION RATE 2.2 (>56); GLUCOSE, FASTING 99 MG/DL (70-100); LIPASE 720 U/L (73-393); MB/CK RELATIVE INDEX 1.33 (< OR =4); POTASSIUM SERUM 4.4 MEQ/L (3.5-5.1); SODIUM LEVEL 138 MEQ/L (136-145); TOTAL PROTEIN 6.4 GM/DL (6.4-8.2); TROPONIN I < 0.02 NG/ML (< 0.10)
[2021-02-09 19:54] LABS: PHOSPHORUS LEVEL 7.1 MG/DL (2.5-4.9)
[2021-02-09 20:27] LABS: RSV AMPLIFICATION NEGATIVE (NEGATIVE)
[2021-02-09 21:15] VITALS: BP 135/65
[2021-02-09] MEDS ORDERED: hydrOXYzine 10 MG TAB PO STA (21:27)
--- NOTE | 2021-02-10 03:21 | ECGEPIP ---
[facility] - ED Test Date: 2021-02-09 Pat Name: EMILY ELLSWORTH Department: Room: - Gender: Male Clinical Implementation Specialist: ELBA : [id number] Requested By: Sarah Ashby Order Number: [id number] Reading MD: Reynaldo Davenport Measurements Intervals [place]hler Rate: 84 P: 53 IN: 152 QRS: 267 QRSD: 164 T: 72 QT: 444 QTc: 524 Interpretive Statements Atrial-sensed ventricular-paced rhythm Biventricular pacemaker detected NO PRIORS FOR COMPARISON Electronically Signed on 02-10-2021 3:21:14 EDT by Reynaldo Davenport
== END 2021-02-09 21:40 | disposition short-term general hospital (02) ==
LOC: M ED 17:18
DX: N17.9 Acute kidney failure, unspecified (principal); Z95.0 Presence of cardiac pacemaker; I51.7 Cardiomegaly; R06.02 Shortness of breath; R42 Dizziness and giddiness; I51.9 Heart disease, unspecified; I10 Essential (primary) hypertension; F41.9 Anxiety disorder, unspecified; Z79.899 Other long term (current) drug therapy

== ENCOUNTER → 2021-03-30 | Outpatient (REF) | payer MEDICARE ==
[~2021-03-30] MED LIST changes: +ERGO500029 PO; +OMEP40CA4 PO; -OMEP40CA97 PO; +ROPI0.5T3 PO; +SARNLOT TP; +SEVE800T3 PO; +TORS20TA2 PO; -VITA50005 PO; +heparin
== END ==
LOC: M LAB REF 14:48
PROVIDERS: ATTEND Internal Medicine Nephrology
DX: A04.71 Enterocolitis due to Clostridium difficile, recurrent (principal)

== ENCOUNTER 2022-07-19 09:10 | Inpatient (IN) | payer MEDICARE ==
[~2022-07-19] VITALS: Ht 172.7 cm; Wt 69.3 kg
[~2022-07-19 09:10] MED LIST changes: -LISI2.5T2 PO; +LISI2.5T9 PO; +LOSA50TA28 PO; -LOSA50TA88 PO
[2022-07-19] MEDS ORDERED: ROPI2TAB3 PO (09:37)
[2022-07-19] MEDS ORDERED: OMEP40CA5 (09:37)
[2022-07-19] MEDS ORDERED: ROSU20TA5 PO (09:37)
[2022-07-19 10:23] LABS: BASO # 0.1 10^3/uL (0.0-0.2); BASO % 0.8 % (0.0-1.0); EOS # 0.1 10^3/uL (0.0-0.5); EOS % 1.7 % (0.0-3.0); HEMATOCRIT 33.2 % (42.0-52.0); LYMPH # 1.2 10^3/uL (1.5-5.0); LYMPH % 18.1 % (24.0-44.0); MEAN CORPUSCULAR HEMOGLOBIN 31.9 pg (27.0-33.0); MEAN CORPUSCULAR HGB CONC 33.1 g/dl (32.0-36.5); MEAN CORPUSCULAR VOLUME 96.2 fl (80.0-96.0); MONO # 0.6 10^3/uL (0.0-0.8); MONO % 9.6 % (2.0-8.0); NEUTROPHILS # 4.6 10^3/uL (1.5-8.5); NEUTROPHILS % 69.6 % (36.0-66.0); PLATELET COUNT, AUTOMATED 182 10^3/uL (150-450); RED BLOOD COUNT 3.45 10^6/uL (4.30-6.10); WHITE BLOOD COUNT 6.5 10^3/uL (4.0-10.0)
[2022-07-19 10:42] LABS: INR 0.96; PARTIAL THROMBOPLASTIN TIME 26.1 SECONDS (24.8-34.2)
[2022-07-19] MEDS ORDERED: ASPIRIN 81 MG CHEW TABLET PO ONE (10:45)
[2022-07-19 10:59] LABS: RSV AMPLIFICATION NEGATIVE (NEGATIVE)
[2022-07-19 11:10] LABS: BLOOD UREA NITROGEN 69 MG/DL (9-23); CALCIUM LEVEL 9.5 MG/DL (8.5-10.1); CARBON DIOXIDE LEVEL 28 MMOL/L (20-31); CHLORIDE LEVEL 93 MMOL/L (98-107); CK-MB VALUE MASS < 1.0 NG/ML (<3.6); CPK CREATINE PHOSPHOKINASE 67 U/L (46-171); CREATININE FOR GFR 20.46 MG/DL (0.70-1.30); GLOMERULAR FILTRATION RATE 2.6 (>56); GLUCOSE, FASTING 99 MG/DL (60-100); MB/CK RELATIVE INDEX 1.49 (< OR =4); POTASSIUM SERUM 5.2 MMOL/L (3.5-5.1); SODIUM LEVEL 134 MMOL/L (136-145)
[2022-07-19] MEDS ORDERED: TEMO0.0517 TOP (13:29)
[2022-07-19] MEDS ORDERED: LOSA25TA13 PO (13:29)
[2022-07-19] MEDS ORDERED: DUPI300P SC (13:29)
[2022-07-19] MEDS ORDERED: ROPI1TAB3 PO (13:29)
[2022-07-19] MEDS ORDERED: HOME MED LIST COMPLETE! XX SCH (13:30)
[2022-07-19 18:00] VITALS: BP 110/59
[2022-07-19] MEDS ORDERED: (RENVELA) SEVELAMER **CARBONate** 800 MG TAB PO SCH (18:00)
[2022-07-19] MEDS: SUCROFERRIC OXYHYDROXIDE 500MG CHEW TAB (VELPHORO) PO SCH (20:10)
[2022-07-19] MEDS: OMEPRAZOLE 20MG CAP PO SCH (20:24)
[2022-07-19] MEDS: LOSARTAN 25 MG TAB PO SCH (20:39)
[2022-07-19] MEDS: METOPROLOL TART 50 MG TAB PO SCH (20:40)
[2022-07-20 01:08] VITALS: BP 104/60
[2022-07-20 02:31] LABS: ALBUMIN 3.1 G/DL (3.2-5.2); ALKALINE PHOSPHATASE 62 U/L (46-116); ALT/SGPT 64 U/L (7.0-40); AST/SGOT 29 U/L (<34); BILIRUBIN,TOTAL 0.2 MG/DL (0.3-1.2); BLOOD UREA NITROGEN 79 MG/DL (9-23); CALCIUM LEVEL 8.5 MG/DL (8.5-10.1); CARBON DIOXIDE LEVEL 26 MMOL/L (20-31); CHLORIDE LEVEL 94 MMOL/L (98-107); CK-MB VALUE MASS < 1.0 NG/ML (<3.6); CPK CREATINE PHOSPHOKINASE 49 U/L (46-171); GLOMERULAR FILTRATION RATE 2.4 (>56); GLUCOSE, FASTING 103 MG/DL (60-100); MAGNESIUM LEVEL 1.8 MG/DL (1.8-2.4); MB/CK RELATIVE INDEX 2.04 (< OR =4); PHOSPHORUS LEVEL 9.6 MG/DL (2.5-4.9); POTASSIUM SERUM 5.1 MMOL/L (3.5-5.1); SODIUM LEVEL 134 MMOL/L (136-145); TOTAL PROTEIN 5.6 G/DL (5.7-8.2)
[2022-07-20] MEDS ORDERED: ACETAMINOPHEN TAB 650MG DOSE (2X325MG) PO PRN (02:40)
[2022-07-20 03:25] LABS: CREATININE FOR GFR 21.43 MG/DL (0.70-1.30)
[2022-07-20 06:00] VITALS: BP 111/69
[2022-07-20 06:00] LABS: HEMATOCRIT 29.7 % (42.0-52.0); HEMOGLOBIN 9.9 g/dl (13.5-17.5); MEAN CORPUSCULAR HEMOGLOBIN 32.1 pg (27.0-33.0); MEAN CORPUSCULAR HGB CONC 33.3 g/dl (32.0-36.5); MEAN CORPUSCULAR VOLUME 96.4 fl (80.0-96.0); PLATELET COUNT, AUTOMATED 153 10^3/uL (150-450); RED BLOOD COUNT 3.08 10^6/uL (4.30-6.10); WHITE BLOOD COUNT 6.1 10^3/uL (4.0-10.0)
[2022-07-20] MEDS: HEPARIN SOD (PORCINE) 5000UNITS/ML 1ML VIAL/SYRINGE PD SCH ×5 (06:00→21:54)
[2022-07-20 07:32] LABS: ALBUMIN 3.1 G/DL (3.2-5.2); BILIRUBIN,TOTAL 0.3 MG/DL (0.3-1.2); CALCIUM LEVEL 9.4 MG/DL (8.5-10.1); GLOMERULAR FILTRATION RATE 2.5 (>56); POTASSIUM SERUM 5.2 MMOL/L (3.5-5.1); TOTAL PROTEIN 4.9 G/DL (5.7-8.2)
[2022-07-20 08:40] LABS: CREATININE FOR GFR 21.09 MG/DL (0.70-1.30)
[2022-07-20] MEDS: METOPROLOL TART 50 MG TAB PO SCH ×2 (09:00→20:34)
[2022-07-20] MEDS: ROSUVASTATIN 10 MG TAB (CRESTOR) PO SCH (09:54)
[2022-07-20] MEDS: (RENVELA) SEVELAMER **CARBONate** 800 MG TAB PO SCH ×3 (09:54→18:07)
[2022-07-20] MEDS: OMEPRAZOLE 20MG CAP PO SCH ×2 (09:54→20:34)
[2022-07-20] MEDS: SUCROFERRIC OXYHYDROXIDE 500MG CHEW TAB (VELPHORO) PO SCH ×3 (09:58→18:15)
[2022-07-20 11:43] LABS: URIC ACID 5.9 MG/DL (3.7-9.2)
[2022-07-20] MEDS: MIRALAX *UNIT DOSE* 17GM PACKET PO PRN (13:17)
[2022-07-20 16:00] VITALS: BP 109/71
[2022-07-20 19:23] VITALS: BP 112/73
[2022-07-20] MEDS: LOSARTAN 25 MG TAB PO SCH (20:33)
[2022-07-20] MEDS: SENOKOT S TAB PO SCH (20:34)
[2022-07-20] MEDS ORDERED: TEMAZEPAM 7.5 MG CAP PO ONE (22:00)
[2022-07-21 06:00] VITALS: BP 111/68
[2022-07-21] MEDS: HEPARIN SOD (PORCINE) 5000UNITS/ML 1ML VIAL/SYRINGE PD SCH (06:38)
[2022-07-21] MEDS: METOPROLOL TART 50 MG TAB PO SCH ×2 (09:00→21:00)
[2022-07-21] MEDS: OMEPRAZOLE 20MG CAP PO SCH ×2 (09:31→22:23)
[2022-07-21] MEDS: MIRALAX *UNIT DOSE* 17GM PACKET PO PRN (09:31)
[2022-07-21] MEDS: ROSUVASTATIN 10 MG TAB (CRESTOR) PO SCH (09:31)
[2022-07-21] MEDS: SENOKOT S TAB PO SCH ×2 (09:31→22:22)
[2022-07-21] MEDS: (RENVELA) SEVELAMER **CARBONate** 800 MG TAB PO SCH ×3 (09:31→18:23)
[2022-07-21] MEDS: SUCROFERRIC OXYHYDROXIDE 500MG CHEW TAB (VELPHORO) PO SCH ×3 (09:34→18:23)
[2022-07-21 13:00] LABS: HEMOGLOBIN 10.3 g/dl (13.5-17.5); MEAN CORPUSCULAR HEMOGLOBIN 31.9 pg (27.0-33.0); MEAN CORPUSCULAR HGB CONC 33.2 g/dl (32.0-36.5); PLATELET COUNT, AUTOMATED 180 10^3/uL (150-450); RED BLOOD COUNT 3.23 10^6/uL (4.30-6.10); WHITE BLOOD COUNT 7.6 10^3/uL (4.0-10.0)
[2022-07-21 13:39] LABS: ALBUMIN 3.2 G/DL (3.2-5.2); CALCIUM LEVEL 9.6 MG/DL (8.5-10.1); GLOMERULAR FILTRATION RATE 2.4 (>56); PHOSPHORUS LEVEL 6.7 MG/DL (2.5-4.9); POTASSIUM SERUM 5.2 MMOL/L (3.5-5.1)
[2022-07-21 14:00] VITALS: BP 110/68
[2022-07-21 14:49] LABS: CREATININE FOR GFR 21.57 MG/DL (0.70-1.30)
[2022-07-21] MEDS: LOSARTAN 25 MG TAB PO SCH (21:00)
[2022-07-21 22:00] VITALS: BP 110/72
[2022-07-21] MEDS: rOPINIRole 1MG TAB PO SCH (22:22)
[2022-07-22 06:00] VITALS: BP 104/60
[2022-07-22] MEDS: METOPROLOL TART 50 MG TAB PO SCH ×2 (09:00→23:31)
[2022-07-22] MEDS ORDERED: LACTULOSE 20 GM/30 ML SYRUP UD PR ONE (09:15)
[2022-07-22] MEDS: SENOKOT S TAB PO SCH ×2 (09:47→22:50)
[2022-07-22] MEDS: SUCROFERRIC OXYHYDROXIDE 500MG CHEW TAB (VELPHORO) PO SCH ×3 (09:47→18:44)
[2022-07-22] MEDS: OMEPRAZOLE 20MG CAP PO SCH ×2 (09:47→22:52)
[2022-07-22] MEDS: ROSUVASTATIN 10 MG TAB (CRESTOR) PO SCH (09:47)
[2022-07-22] MEDS: (RENVELA) SEVELAMER **CARBONate** 800 MG TAB PO SCH ×3 (09:47→18:44)
[2022-07-22 10:00] LABS: HEMATOCRIT 34.1 % (42.0-52.0); HEMOGLOBIN 11.1 g/dl (13.5-17.5); MEAN CORPUSCULAR HEMOGLOBIN 31.4 pg (27.0-33.0); MEAN CORPUSCULAR HGB CONC 32.6 g/dl (32.0-36.5); MEAN CORPUSCULAR VOLUME 96.6 fl (80.0-96.0); PLATELET COUNT, AUTOMATED 199 10^3/uL (150-450); RED BLOOD COUNT 3.53 10^6/uL (4.30-6.10); WHITE BLOOD COUNT 7.3 10^3/uL (4.0-10.0)
[2022-07-22 10:32] LABS: ALBUMIN 3.6 G/DL (3.2-5.2); CALCIUM LEVEL 9.9 MG/DL (8.5-10.1); GLOMERULAR FILTRATION RATE 2.5 (>56); PHOSPHORUS LEVEL 6.4 MG/DL (2.5-4.9)
[2022-07-22] MEDS ORDERED: FLEET OIL RETENTION ENEMA PR ONE (10:40)
[2022-07-22] MEDS ORDERED: BISACODYL 10 MG SUPP PR PRN (10:40)
[2022-07-22 12:37] LABS: CREATININE FOR GFR 20.81 MG/DL (0.70-1.30)
[2022-07-22 14:00] VITALS: BP_SYST 102; BP_SYST 110; BP_DIAS 52; BP_DIAS 71
[2022-07-22 22:00] VITALS: BP 93/60
[2022-07-22] MEDS: rOPINIRole 1MG TAB PO SCH (22:51)
[2022-07-22] MEDS: LOSARTAN 25 MG TAB PO SCH (23:31)
[2022-07-23 00:46] VITALS: BP 100/68
[2022-07-23 06:00] VITALS: BP 102/58
[2022-07-23] MEDS: (RENVELA) SEVELAMER **CARBONate** 800 MG TAB PO SCH ×2 (09:04→12:30)
[2022-07-23] MEDS: SUCROFERRIC OXYHYDROXIDE 500MG CHEW TAB (VELPHORO) PO SCH ×2 (09:04→12:30)
[2022-07-23] MEDS: SENOKOT S TAB PO SCH (09:05)
[2022-07-23] MEDS: OMEPRAZOLE 20MG CAP PO SCH (09:05)
[2022-07-23] MEDS: ROSUVASTATIN 10 MG TAB (CRESTOR) PO SCH (09:05)
[2022-07-23 09:07] VITALS: BP 107/66
[2022-07-23] MEDS: METOPROLOL TART 50 MG TAB PO SCH (09:07)
[2022-07-23] MEDS ORDERED: SENN-52 PO (10:43)
[2022-07-23] MEDS ORDERED: MIRA1POW3 PO (10:43)
[2022-07-23] MEDS ORDERED: SEVE800T3 PO (10:43)
== END 2022-07-23 13:03 | disposition home or self-care (01) | DRG 682 ==
LOC: M ED 09:10 → M ED INP 16:58 → ENRESERV 17:05 → M MSPAV 17:59 → OBSVTOIN 07-21 21:32
PROVIDERS: ADMIT Internal Medicine Nephrology; ATTEND Internal Medicine Nephrology
DX: N18.6 End stage renal disease (principal); Q25.6 Stenosis of pulmonary artery; I50.42 Chronic combined systolic (congestive) and diastolic (congestive) heart failure; I42.9 Cardiomyopathy, unspecified; Q87.81 Alport syndrome; N25.81 Secondary hyperparathyroidism of renal origin; K21.9 Gastro-esophageal reflux disease without esophagitis; G43.109 Migraine with aura, not intractable, without status migrainosus; E83.39 Other disorders of phosphorus metabolism; H93.12 Tinnitus, left ear; Z79.899 Other long term (current) drug therapy; D64.9 Anemia, unspecified; E87.5 Hyperkalemia